=== PATIENT | male | born 1985 | race Caucasian/White ===

== ENCOUNTER 2016-12-11 13:11 | Inpatient (IN) | payer OTHER ==
[2016-12-11 13:33] VITALS: BMI 20.7
--- NOTE | 2016-12-11 14:56 | HP ---
COWS - Scale Resting Pulse: 2= [place] 101-120 Sweatin=Flushed/Facial Moisture Restless Observation: 3= Extraneous Movement Pupil Size: 2= Moderately Dilated Bone or Joint Aches: 2= Severe Diffuse Aches Runny Nose/ Eye Tearin= Runny Nose/Eyes GI Upset > 30mins: 3= Vomiting/Diarrhea Tremor Observation: 2= Slight Tremor Visible Yawning Observation: 2= >3x During Session Anxiety or Irritability: 2=Irritable/Anxious Goose Flesh Skin: 0=Smooth Skin COWS Score: 22 CIWA Score - CIWA Score Nausea/Vomitin Muscle Tremors: 3 Anxiety: 3 Agitation: 3 Paroxysmal Sweats: 2 Orientation: 0-Oriented Tacttile Disturbances: 2-Mild Itch/Numbness/Burn Auditory Disturbances: 2-Mild Harshness/Frighten Visual Disturbances: 2-Mild Sensitivity Headache: 2-Mild CIWA-Ar Total Score: 22 Admission ROS BHS - HPI Chief Complaint: i need help to stop using heroin,alcohol,cocaine and xanax Allergies/Adverse Reactions: Allergies Allergy/AdvReac Type Severity Reaction Status Date / Time No Known Allergies Allergy Verified 12/11/16 13:50 History of Present Illness: this 31 years ld male with heroin,cocaine,xanax,alcohol dependence,withdrawal symptom,last detox 2016 syncope anxiety depression weight loss nicotine dependernce longest period of sobriety for 3 years Exam Limitations: No Limitations - Ebola screening Have you traveled outside of the country in the last 21 days: No Have you had contact with anyone from an Ebola affected area: No Have you been sick,other than usual withdrawal symptoms: No Do you have a fever: No - Review of Systems Constitutional: Chills, Diaphoresis, Malaise, Night Sweats, Weakness, Unintentional Wgt. Loss EENT: reports: Tearing, Nose Congestion Respiratory: reports: No Symptoms reported Cardiac: reports: Palpitations GI: reports: Diarrhea, Nausea, Vomiting, Abdominal cramping : reports: No Symptoms Reported Musculoskeletal: reports: Back Pain, Joint Pain, Muscle Pain, Joint Stiffness Integumentary: reports: Dryness Endocrine: reports: No Symptoms Reported Hematology: reports: No Symptoms Reported Psychiatric: reports: Anxious, Depressed Other Systems: Reviewed and Negative Patient History - Patient Medical History Hx Anemia: No Hx Asthma: No Hx Chronic Obstructive Pulmonary Disease (COPD): No Hx Cancer: No Hx Cardiac Disorders: No Hx Hypertension: No Hx Pacemaker: No HX Cerebrovascular Accident: No Hx Seizures: No Hx Diabetes: No Hx Gastrointestinal Disorders: No Hx Liver Disease: No Hx Genitourinary Disorders: No Hx Sexually Transmitted Disorders: No Hx Renal Disease (ESRD): No Hx Thyroid Disease: No Hx Human Immunodeficiency Virus (HIV): No (2014 last negative) Hx Hepatitis C: No Hx Depression: Yes (anxiety) Hx Suicide Attempt: No Hx Bipolar Disorder: No Hx Schizophrenia: No Other Medical History: no suicidal,no homicidal - Patient Surgical History Past Surgical History: No Hx Neurologic Surgery: No Hx Cataract Extraction: No Hx Cardiac Surgery: No Hx Lung Surgery: No Hx Breast Surgery: No Hx Breast Biopsy: No Hx Abdominal Surgery: No Hx Appendectomy: No Hx Cholecystectomy: No Hx Genitourinary Surgery: No Hx Section: No Hx Orthopedic Surgery: No Anesthesia Reaction: No - PPD History Previous Implant?: Yes Documented Results: Negative w/o proof PPD to be Administered?: Yes - Smoking Cessation Smoking history: Current every day smoker Have you smoked in the past 12 months: Yes Aproximately how many cigarettes per day: 10 Cigars Per Day: 0 Hx Chewing Tobacco Use: No Initiated information on smoking cessation: Yes 'Breaking Loose' booklet given: 12/11/16 - Substance & Tx. History Hx Alcohol Use: Yes Hx Substance Use: Yes Substance Use Type: Alcohol, Cocaine, Heroin, Tranquilizers Hx Substance Use Treatment: Yes (2015) - Substances Abused Alcohol Route: Oral Frequency: Daily Amount used: 1 pint baccardi Age of first use: 12 Date of Last Use: 12/10/16 Heroin Route: Injection Frequency: Daily Amount used: bundle and half Age of first use: 21 Date of Last Use: 12/11/16 Alprazolam (Xanax) Route: Oral Frequency: Daily Amount used: 2 sticks Age of first use: 16 Date of Last Use: 12/11/16 Cocaine Route: Injection Frequency: Daily Amount used: 1 gram Age of first use: 16 Date of Last Use: 12/10/16 Family Disease History - Family Disease History Family History: Denies Admission Physical Exam BHS - Vital Signs Vital Signs: Vital Signs - 24 hr 12/11/16 13:29 Temperature 98.1 F Pulse Rate 103 H Respiratory 20 Rate Blood Pressure 117/70 - Physical General Appearance: Yes: Moderate Distress, Alcohol on Breath, Intoxicated, Tremorous, Irritable, Sweating, Anxious HEENTM: Yes: Normocephalic, Nasal Congestion, Rhinorrhea Respiratory: Yes: Lungs Clear Neck: Yes: Within Normal Limits, Trachea in good position Breast: Yes: Within Normal Limits Cardiology: Yes: Regular Rhythm, Regular Rate, S1, S2, Tachycardia Abdominal: Yes: Normal Bowel Sounds, Non Tender, Flat, Soft Genitourinary: Yes: Within Normal Limits Back: Yes: Muscle Spasm Musculoskeletal: Yes: Back pain, Joint Stiffness, Muscle Pain Extremities: Yes: Tremors Neurological: Yes: Within Normal Limits, business services coordinator II-XII NML intact, Fully Oriented, Alert, Motor Strength 5/5 Integumentary: Yes: Dry Lymphatic: Yes: Within Normal Limits - Diagnostic (1) Opioid dependence with withdrawal Current Visit: Yes Status: Acute (2) Cocaine dependence Current Visit: Yes Status: Acute (3) Alcohol dependence with uncomplicated withdrawal Current Visit: Yes Status: Acute (4) Uncomplicated sedative, hypnotic or anxiolytic withdrawal Current Visit: Yes Status: Acute (5) Weight loss Current Visit: Yes Status: Acute (6) Nicotine dependence Current Visit: Yes Status: Acute (7) Anxiety and depression Current Visit: Yes Status: Acute Cleared for Admission [facility] - Detox or Rehab [facility] Level of Care: Medically Managed Detox Regimen/Protocol: Methadone/Librium [facility] Breath Alcohol Content Breath Alcohol Content: 0 Urine Drug Screen - Results Drug Screen Negative: No Urine Drug Screen Results: AJ-Cocaine, OPI-Opiates, BZO-Benzodiazepines, MTD- Methadone, OXY-Oxycodone
[2016-12-11] MEDS ORDERED: IBUPROFEN 400 MG TABLET (FP) PO PRN (15:06)
[2016-12-11] MEDS ORDERED: chlordiazePOXIDE HCL 25 MG CAPSULE PO PRN (15:06)
[2016-12-11] MEDS ORDERED: MENTHOL/PHENOL 1 EACH UD MM PRN (15:06)
[2016-12-11] MEDS ORDERED: chlordiazePOXIDE HCL 25 MG CAPSULE PO ONE (15:06)
[2016-12-11] MEDS ORDERED: NICOTINE POLACRILEX 2 MG GUM BC PRN (15:06)
[2016-12-11] MEDS ORDERED: MAG HYDROX/AL HYDROX/SIMETH 30 ML UNIT-DOSE CUP PO PRN (15:06)
[2016-12-11] MEDS ORDERED: ACETAMINOPHEN 325 MG TABLET (FP) PO PRN (15:06)
[2016-12-11] MEDS ORDERED: guaiFENesin/D-METHORPHAN HB 10 ML UNIT-DOSE CUPS PO PRN (15:06)
[2016-12-11] MEDS ORDERED: MAGNESIUM HYDROX 2400MG/30ML ORAL SUSPENSION 30 ML CUP PO PRN (15:06)
[2016-12-11] MEDS ORDERED: P-EPHED 60MG/TRIPROLIDI 2.5MG TABLET PO PRN (15:06)
[2016-12-11] MEDS ORDERED: hydrOXYzine PAMOATE 25 MG CAPSULE (FP) PO PRN (15:06)
[2016-12-11] MEDS ORDERED: METHADONE HCL 10 MG TABLET (FOR DETOX USE ONLY) PO ONE ×2 (15:06→23:00)
[2016-12-11] MEDS ORDERED: LOPERAMIDE HCL 2 MG CAPSULE PO PRN (15:06)
[2016-12-11] MEDS ORDERED: MAGNESIUM CITRATE 300 ML BOTTLE PO PRN (15:06)
[2016-12-11] MEDS ORDERED: diphenhydrAMINE HCL 50 MG CAPSULE PO PRN (15:06)
[2016-12-11] MEDS ORDERED: CYCLOBENZAPRINE HCL 10 MG TABLET (FP) PO PRN (15:10)
[2016-12-11] MEDS: NICOTINE 21 MG/24 HOURS TOPICAL PATCH TD SCH (15:54)
[2016-12-11 17:45] LABS: URINE APPEARANCE CLEAR; URINE BILIRUBIN NEGATIVE (NEGATIVE); URINE BLOOD NEGATIVE (NEGATIVE); URINE COLOR YELLOW; URINE GLUCOSE (UA) NEGATIVE (NEGATIVE); URINE KETONE 1+ (NEGATIVE); URINE LEUK ESTERASE NEGATIVE (NEGATIVE); URINE NITRITE NEGATIVE (NEGATIVE); URINE PROTEIN NEGATIVE (NEGATIVE); URINE UROBILINOGEN 2.0 E.U/dl E.U./dl (0.2-1.0)
[2016-12-11] MEDS: chlordiazePOXIDE HCL 25 MG CAPSULE PO SCH ×2 (17:47→22:32)
[2016-12-11] MEDS: THIAMINE HCL 100 MG TABLET (FP) PO SCH (22:32)
[2016-12-11] MEDS: cloNIDine HCL 0.1 MG TABLET PO SCH (22:33)
[2016-12-12] MEDS: chlordiazePOXIDE HCL 25 MG CAPSULE PO SCH ×4 (06:12→22:10)
[2016-12-12] MEDS ORDERED: METHADONE HCL 10 MG TABLET (FOR DETOX USE ONLY) PO SCH (10:00)
[2016-12-12 10:17] LABS: MCH 26.9 pg (25.7-33.7); MCHC 33.4 g/dl (32.0-35.9); MEAN CELL VOLUME 80.5 fl (80-96); MEAN PLT VOLUME 9.2 fl (7.5-11.1); PLATELET COUNT 269 K/MM3 (134-434); RDW 14.5 % (11.9-15.9); WHITE BLOOD COUNT 4.2 K/mm3 (4.0-10.0)
[2016-12-12] MEDS: cloNIDine HCL 0.1 MG TABLET PO SCH ×2 (10:17→22:10)
[2016-12-12] MEDS: NICOTINE 21 MG/24 HOURS TOPICAL PATCH TD SCH (10:17)
[2016-12-12] MEDS: PRENATAL VITAMINS W/ FOLIC ACID TABLET (FP) PO SCH (10:18)
[2016-12-12 10:44] LABS: ALBUMIN 3.3 g/dl (3.4-5.0); ALK PHOS 65 U/L (45-117); ANION GAP 10 (8-16); BILIRUBIN,TOTAL 0.5 mg/dL (0.2-1.0); CALCIUM 9.1 mg/dL (8.5-10.1); CO2 27 mmol/L (21-32); CREATININE 0.5 mg/dL (0.7-1.3); GLUCOSE,RANDOM 106 mg/dL (74-106); SGOT/AST 8 U/L (15-37); SGPT/ALT 18 U/L (12-78); TOT PROT 7.5 g/dl (6.4-8.2)
[2016-12-12 11:24] LABS: HIV 1 & 2 AB NEGATIVE; HIV 1 AGp24 NEGATIVE
--- NOTE | 2016-12-12 16:14 | PN ---
S CIWA - CIWA Score Nausea/Vomitin-Int. Nausea w/Dry Heave Muscle Tremors: 4-Moderate,w/Arms Extend Anxiety: 3 Agitation: 4-Moderately Restless Paroxysmal Sweats: 3 Orientation: 0-Oriented Tacttile Disturbances: 1-Very Mild Itch/Numbness Auditory Disturbances: 0-None Visual Disturbances: 0-None Headache: 2-Mild CIWA-Ar Total Score: 21 BHS COWS - Scale Resting Pulse: 0= [place] 80 or Below Sweatin=Flushed/Facial Moisture Restless Observation: 3= Extraneous Movement Pupil Size: 0= Normal to Room Light Bone or Joint Aches: 2= Severe Diffuse Aches Runny Nose/ Eye Tearin= Runny Nose/Eyes GI Upset > 30mins: 2= Nausea/Diarrhea Tremor Observation of Outstretched Hands: 2= Slight Tremor Visible Yawning Observation: 0= None Anxiety or Irritability: 2=Irritable/Anxious Goose Flesh Skin: 0=Smooth Skin COWS Score: 15 S Progress Note (SOAP) Subjective: Anxious, restless, sweating, nausea, interrupted sleep, tremor Objective: 12/12/16 16:12 Last Vital Signs Temp Pulse Resp BP Pulse Ox 98 F 67 20 105/63 12/12/16 14:15 12/12/16 14:15 12/12/16 14:15 12/12/16 14:15 Laboratory Tests 12/11/16 12/12/16 12/12/16 Unknown 08:00 08:00 WBC 4.2 RBC 4.50 Hgb 12.1 Hct 36.2 MCV 80.5 MCHC 33.4 RDW 14.5 Plt Count 269 MPV 9.2 Sodium Potassium Chloride Carbon Dioxide Anion Gap BUN Creatinine Creat Clearance w eGFR Random Glucose Calcium Total Bilirubin AST ALT Alkaline Phosphatase Total Protein Albumin Urine Color Yellow Urine Appearance Clear Urine pH 5.0 Ur Specific [place] 1.025 Urine Protein Negative Urine Glucose (UA) Negative Urine Ketones 1+ H Urine Blood Negative Urine Nitrite Negative Urine Bilirubin Negative Urine Urobilinogen 2.0 e.u/dl Ur Leukocyte Esterase Negative RPR Titer HIV 1&2 Antibody Screen Negative HIV P24 Antigen Negative 12/12/16 12/12/16 08:00 08:00 WBC RBC Hgb Hct MCV MCHC RDW Plt Count MPV Sodium 138 Potassium 4.3 Chloride 101 Carbon Dioxide 27 Anion Gap 10 BUN 11 Creatinine 0.5 L Creat Clearance w eGFR > 60 Random Glucose 106 Calcium 9.1 Total Bilirubin 0.5 AST 8 L ALT 18 Alkaline Phosphatase 65 Total Protein 7.5 Albumin 3.3 L Urine Color Urine Appearance Urine pH Ur Specific [place] Urine Protein Urine Glucose (UA) Urine Ketones Urine Blood Urine Nitrite Urine Bilirubin Urine Urobilinogen Ur Leukocyte Esterase RPR Titer Nonreactive HIV 1&2 Antibody Screen HIV P24 Antigen Labs noted Assessment: 12/12/16 16:12 Withdrawal symptoms Plan: Continue detox Ambien 10mg PO qhs prn for interrupted sleep
[2016-12-12] MEDS: THIAMINE HCL 100 MG TABLET (FP) PO SCH (22:10)
[2016-12-12] MEDS: ZOLPIDEM TARTRATE 5 MG TABLET PO PRN (22:12)
--- NOTE | 2016-12-12 22:24 | EKG ---
Test Reason : Blood Pressure : / mmHG Vent. Rate : 088 BPM Atrial Rate : 088 BPM P-R Int : 156 ms QRS Dur : 084 ms QT Int : 364 ms P-R-T Axes : 039 054 034 degrees QTc Int : 440 ms NORMAL SINUS RHYTHM MINIMAL VOLTAGE CRITERIA FOR LVH, MAY BE NORMAL VARIANT BORDERLINE ECG NO PREVIOUS ECGS AVAILABLE Confirmed by AGUS GRAHAM MD ([id number]) on 12/12/2016 10:23:55 PM Referred By: Confirmed By:AGUS GRAHAM MD
[2016-12-13] MEDS: chlordiazePOXIDE HCL 25 MG CAPSULE PO SCH ×2 (06:11→10:29)
[2016-12-13] MEDS: cloNIDine HCL 0.1 MG TABLET PO SCH ×2 (10:28→22:31)
[2016-12-13] MEDS: PRENATAL VITAMINS W/ FOLIC ACID TABLET (FP) PO SCH (10:28)
[2016-12-13] MEDS: NICOTINE 21 MG/24 HOURS TOPICAL PATCH TD SCH (10:28)
[2016-12-13] MEDS: METHADONE HCL 5 MG TABLET (FOR DETOX USE ONLY) PO SCH (10:28)
[2016-12-13] MEDS ORDERED: diazePAM 5 MG TABLET PO ONE (10:36)
--- NOTE | 2016-12-13 14:03 | PN ---
[facility] CIWA - CIWA Score Nausea/Vomitin-No Nausea/No Vomiting Muscle Tremors: 4-Moderate,w/Arms Extend Anxiety: 4-Mod. Anxious/Guarded Agitation: 4-Moderately Restless Paroxysmal Sweats: 3 Orientation: 0-Oriented Tacttile Disturbances: 0-None Auditory Disturbances: 0-None Visual Disturbances: 0-None Headache: 0-None Present CIWA-Ar Total Score: 15 BHS COWS - Scale Resting Pulse: 0= [place] 80 or Below Sweatin=Flushed/Facial Moisture Restless Observation: 1= Difficult to Sit Still Pupil Size: 0= Normal to Room Light Bone or Joint Aches: 2= Severe Diffuse Aches Runny Nose/ Eye Tearin= Runny Nose/Eyes GI Upset > 30mins: 2= Nausea/Diarrhea Tremor Observation of Outstretched Hands: 2= Slight Tremor Visible Yawning Observation: 1= 1-2x During Session Anxiety or Irritability: 2=Irritable/Anxious Goose Flesh Skin: 0=Smooth Skin COWS Score: 14 [facility] Progress Note (SOAP) Subjective: Sweating,interrupted sleep,restless,tremors,body aches,anxiety Objective: 12/13/16 14:02 Vital Signs - 8 hr 12/13/16 12/13/16 12/13/16 06:49 09:35 13:35 Temperature 96.9 F L 96.4 F L 96.7 F L Pulse Rate 62 69 76 Respiratory 16 18 18 Rate Blood Pressure 101/72 103/65 100/63 Laboratory Last Values WBC 4.2 K/mm3 (4.0-10.0) 12/12/16 08:00 RBC 4.50 M/mm3 (4.00-5.60) 12/12/16 08:00 Hgb 12.1 GM/dL (11.7-16.9) 12/12/16 08:00 Hct 36.2 % (35.4-49) 12/12/16 08:00 MCV 80.5 fl (80-96) 12/12/16 08:00 MCHC 33.4 g/dl (32.0-35.9) 12/12/16 08:00 RDW 14.5 % (11.9-15.9) 12/12/16 08:00 Plt Count 269 K/MM3 (134-434) 12/12/16 08:00 MPV 9.2 fl (7.5-11.1) 12/12/16 08:00 Sodium 138 mmol/L (136-145) 12/12/16 08:00 Potassium 4.3 mmol/L (3.5-5.1) 12/12/16 08:00 Chloride 101 mmol/L (98-107) 12/12/16 08:00 Carbon Dioxide 27 mmol/L (21-32) 12/12/16 08:00 Anion Gap 10 (8-16) 12/12/16 08:00 BUN 11 mg/dL (7-18) 12/12/16 08:00 Creatinine 0.5 mg/dL (0.7-1.3) L 12/12/16 08:00 Creat Clearance w eGFR > 60 (>60) 12/12/16 08:00 Random Glucose 106 mg/dL (74-106) 12/12/16 08:00 Calcium 9.1 mg/dL (8.5-10.1) 12/12/16 08:00 Total Bilirubin 0.5 mg/dL (0.2-1.0) 12/12/16 08:00 AST 8 U/L (15-37) L 12/12/16 08:00 ALT 18 U/L (12-78) 12/12/16 08:00 Alkaline Phosphatase 65 U/L (45-117) 12/12/16 08:00 Total Protein 7.5 g/dl (6.4-8.2) 12/12/16 08:00 Albumin 3.3 g/dl (3.4-5.0) L 12/12/16 08:00 Urine Color Yellow 12/11/16 Unknown Urine Appearance Clear 12/11/16 Unknown Urine pH 5.0 (5.0-8.0) 12/11/16 Unknown Ur Specific [place] 1.025 (1.001-1.035) 12/11/16 Unknown Urine Protein Negative (NEGATIVE) 12/11/16 Unknown Urine Glucose (UA) Negative (NEGATIVE) 12/11/16 Unknown Urine Ketones 1+ (NEGATIVE) H 12/11/16 Unknown Urine Blood Negative (NEGATIVE) 12/11/16 Unknown Urine Nitrite Negative (NEGATIVE) 12/11/16 Unknown Urine Bilirubin Negative (NEGATIVE) 12/11/16 Unknown Urine Urobilinogen 2.0 e.u/dl E.U./dl (0.2-1.0) 12/11/16 Unknown Ur Leukocyte Esterase Negative (NEGATIVE) 12/11/16 Unknown RPR Titer Nonreactive (NONREACTIVE) 12/12/16 08:00 HIV 1&2 Antibody Screen Negative 12/12/16 08:00 HIV P24 Antigen Negative 12/12/16 08:00 labs noted Assessment: 12/13/16 14:02 Withdrawal sx. Plan: continue detox
[2016-12-13] MEDS: diazePAM 5 MG TABLET PO SCH ×2 (14:24→22:30)
--- NOTE | 2016-12-13 14:41 | CONSULT ---
[facility] Psychiatric Consult - Data Date of interview: 12/13/16 Admission source: [facility] Identifying data: First admission to [facility] for this 31 y/o male seeking detox treatment on for alcohol,cocaine,heroin and benzodiazepine (xanax) dependence.Patient is ,a father of four,homeless ,unemployed and supported on food stamps. Substance Abuse History: - Smoking Cessation. Smoking history: Current every day smoker. Have you smoked in the past 12 months: Yes. Aproximately how many cigarettes per day: 10. Cigars Per Day: 0. Hx Chewing Tobacco Use: No. Initiated information on smoking cessation: Yes. 'Breaking Loose' booklet given : 12/11/16. - Substance & Tx. History. Hx Alcohol Use: Yes. Hx Substance Use : Yes. Substance Use Type: Alcohol, Cocaine, Heroin, Tranquilizers. Hx Substance Use Treatment: Yes (2015). - Substances Abused. Alcohol. Route: Oral. Frequency: Daily. Amount used: 1 pint baccardi. Age of first use: 12. Date of Last Use: 12/10/16. Heroin. Route: Injection. Frequency: Daily. Amount used: bundle and half. Age of first use: 21. Date of Last Use: . Alprazolam (Xanax). Route: Oral. Frequency: Daily. Amount used: 2 sticks. Age of first use: 16. Date of Last Use: 12/11/16. Cocaine. Route : Injection. Frequency: Daily. Amount used: 1 gram. Age of first use: 16. Date of Last Use: 12/10/16. Confirmed by the patient in this interview. Medical History: Patient endorses good general health. Psychiatric History: Patient denies history of psychiatric hospitalizations.Diagnosed with " Bipolar Disorder and Schizophrenia." Mr Camarillo recalls his medications as olanzapine,zolpidem and clonazepam.He,vaguely,states that he goes to a program in [facility] but he cannot recall the name of the facility.Patient admits to a history of suicide attempts (overdoses with medications,binge on substances).No recollection of date of the last medication intake. Physical/Sexual Abuse/Trauma History: Patient denies. Additional Comment: Urine Drug Screen Results: AJ-Cocaine, OPI-Opiates, BZO- Benzodiazepines, MTD-Methadone, OXY-Oxycodone.Noted. Mental Status Exam - Mental Status Exam Alert and Oriented to: Time, Place, Person Cognitive Function: Good Patient Appearance: Unkempt, Disheveled Mood: Nervous, Withdrawn Affect: Mood Congruent Patient Behavior: Sedated (mildly), Fatigued Speech Pattern: Clear Voice Loudness: Normal Thought Process: Goal Oriented Thought Disorder: Not Present Hallucinations: Denies Suicidal Ideation: Denies Homicidal Ideation: Denies Insight/Judgement: Poor Sleep: Poorly, Difficulty falling asleep Appetite: Good Muscle strength/Tone: Normal Gait/Station: Normal Psychiatric Findings - Problem List ([place] 1, 2,3) (1) Alcohol dependence with uncomplicated withdrawal Current Visit: Yes Status: Acute (2) Cocaine dependence Current Visit: Yes Status: Acute (3) Opioid dependence with withdrawal Current Visit: Yes Status: Acute (4) Uncomplicated sedative, hypnotic or anxiolytic withdrawal Current Visit: Yes Status: Acute (5) Nicotine dependence Current Visit: Yes Status: Acute (6) Substance induced mood disorder Current Visit: Yes Status: Acute (7) Insomnia Current Visit: Yes Status: Acute - Initial Treatment Plan Initial Treatment Plan: Psychoeducation.Detoxification.Medications : zyprexa 5 mg po hs + zolpidem 10 mg po hs prn.Side effects/benefits discussed with the patient.Made aware of the risk of metabolic syndrome.Patient agrees with this plan of care.Observation.
[2016-12-13] MEDS ORDERED: ZOLPIDEM TARTRATE 10 MG TABLET (PARK CARE ONLY) PO PRN (15:01)
[2016-12-13] MEDS ORDERED: chlordiazePOXIDE 5 MG CAPSULE PO SCH (17:00)
[2016-12-13] MEDS ORDERED: traZODone HCL 50 MG TABLET (FP) PO SCH (22:00)
[2016-12-13] MEDS: ZOLPIDEM TARTRATE 5 MG TABLET PO PRN (22:30)
[2016-12-13] MEDS: OLANZapine 5 MG TABLET PO SCH (22:30)
[2016-12-13] MEDS: THIAMINE HCL 100 MG TABLET (FP) PO SCH (22:30)
[2016-12-14] MEDS: diazePAM 5 MG TABLET PO SCH ×3 (05:12→22:27)
[2016-12-14] MEDS: cloNIDine HCL 0.1 MG TABLET PO SCH ×2 (10:20→22:27)
[2016-12-14] MEDS: METHADONE HCL 5 MG TABLET (FOR DETOX USE ONLY) PO SCH (10:20)
[2016-12-14] MEDS: NICOTINE 21 MG/24 HOURS TOPICAL PATCH TD SCH (10:20)
[2016-12-14] MEDS: PRENATAL VITAMINS W/ FOLIC ACID TABLET (FP) PO SCH (10:20)
--- NOTE | 2016-12-14 10:41 | PN ---
BHS Progress Note (SOAP) Subjective: ANXIETY,SWEATS,TREMORS,FATIGUE. Objective: 12/14/16 10:40 Vital Signs Temperature 96 F L 12/14/16 10:08 Pulse Rate 84 12/14/16 10:08 Respiratory Rate 20 12/14/16 10:08 Blood Pressure 117/69 12/14/16 10:08 O2 Sat by Pulse Oximetry (%) Assessment: 12/14/16 10:40 WITHDRAWAL SX Plan: CONTINUE DETOX INCREASE PO FLUIDS.
[2016-12-14] MEDS ORDERED: chlordiazePOXIDE HCL 10 MG CAPSULE PO SCH (17:00)
[2016-12-14] MEDS: THIAMINE HCL 100 MG TABLET (FP) PO SCH (22:27)
[2016-12-14] MEDS: ZOLPIDEM TARTRATE 5 MG TABLET PO PRN (22:27)
[2016-12-14] MEDS: OLANZapine 5 MG TABLET PO SCH (22:27)
[2016-12-15 09:53] VITALS: BP 113/70; PULSE 68; TEMP 96.9
[2016-12-15] MEDS ORDERED: METHADONE HCL 10 MG TABLET (FOR DETOX USE ONLY) PO SCH (10:00)
[2016-12-15] MEDS ORDERED: diazePAM 5 MG TABLET PO SCH (10:00)
[2016-12-15] MEDS: PRENATAL VITAMINS W/ FOLIC ACID TABLET (FP) PO SCH (10:20)
[2016-12-15] MEDS: cloNIDine HCL 0.1 MG TABLET PO SCH (10:21)
[2016-12-15] MEDS: NICOTINE 21 MG/24 HOURS TOPICAL PATCH TD SCH (10:50)
--- NOTE | 2016-12-15 11:56 | DS ---
[facility] Detox Discharge Summary Admission Date: 12/11/16 Discharge Date: 12/15/16 - History Present History: Alcohol Dependence, Cocaine Dependence, Opioid Dependence, Sedative Dependence Additional Comments: DETOX COMPLETED. ALERT O X 3. NAD. Pertinent Past History: WEIGHT LOSS - Physical Exam Results Vital Signs: Vital Signs Temperature 96.9 F L 12/15/16 09:53 Pulse Rate 68 12/15/16 09:53 Respiratory Rate 18 12/15/16 09:53 Blood Pressure 113/70 12/15/16 09:53 O2 Sat by Pulse Oximetry (%) Pertinent Admission Physical Exam Findings: WITHDRAWAL SX - Treatment Hospital Course: Detox Protocol Followed, Detoxed Safely, Responded well, Discharged Condition Good - Medication Discharge Medications: Ambulatory Orders Olanzapine [Zyprexa -] 5 mg PO DAILY #30 tablet 12/13/16 - Diagnosis (1) Alcohol dependence with uncomplicated withdrawal Status: Acute (2) Nicotine dependence Status: Acute Qualifiers: Nicotine product type: cigarettes Substance use status: in withdrawal Qualified Code(s): F17.213 - Nicotine dependence, cigarettes, with withdrawal (3) Opioid dependence with withdrawal Status: Acute (4) Uncomplicated sedative, hypnotic or anxiolytic withdrawal Status: Acute (5) Weight loss Status: Chronic - AMA Did Patient Leave Against Medical Advice: No
[2016-12-16] MEDS ORDERED: METHADONE HCL 5 MG TABLET (FOR DETOX USE ONLY) PO SCH (06:00)
[2016-12-16] MEDS ORDERED: diazePAM 5 MG TABLET PO SCH (10:00)
== END 2016-12-15 10:52 | disposition home or self-care (01) | DRG 773 ==
LOC: YASAS 13:11 → Y3N 14:18
PROVIDERS: ADMIT Internal Medicine; ATTEND Internal Medicine
PROC: HZ2ZZZZ Detoxification Services for Substance Abuse Treatment (ICD-10-PCS; principal; 2016-12-15)
DX: F11.23 Opioid dependence with withdrawal (principal); F13.230 Sedative, hypnotic or anxiolytic dependence with withdrawal, uncomplicated; F10.230 Alcohol dependence with withdrawal, uncomplicated; F14.20 Cocaine dependence, uncomplicated; F17.213 Nicotine dependence, cigarettes, with withdrawal; F19.24 Other psychoactive substance dependence with psychoactive substance-induced mood disorder; F41.8 Other specified anxiety disorders; G47.00 Insomnia, unspecified; R63.4 Abnormal weight loss; Z68.20 Body mass index [BMI] 20.0-20.9, adult; Z59.0 Homelessness
CPT/HCPCS: 36415; 80053; 81003; 85027; 86593; 87389; 87522; 93005; 93010

== ENCOUNTER 2017-01-12 14:09 | Inpatient (IN) | payer OTHER ==
[2017-01-12 16:07] VITALS: BMI 20.9
--- NOTE | 2017-01-12 16:46 | HP ---
COWS - Scale Resting Pulse: 2= [place] 101-120 Sweatin= Chills/Flushing Restless Observation: 3= Extraneous Movement Pupil Size: 0= Normal to Room Light Bone or Joint Aches: 1= Mild Discomfort Runny Nose/ Eye Tearin= Nasal Congestion GI Upset > 30mins: 3= Vomiting/Diarrhea Tremor Observation: 1= Tremor [place], Not Seen Yawning Observation: 0= None Anxiety or Irritability: 2=Irritable/Anxious Goose Flesh Skin: 0=Smooth Skin COWS Score: 14 CIWA Score - CIWA Score Nausea/Vomitin Muscle Tremors: 4-Moderate,w/Arms Extend Anxiety: 4-Mod. Anxious/Guarded Agitation: 4-Moderately Restless Paroxysmal Sweats: 1-Minimal Palms Moist Orientation: 3-Disoriented Date>2 days Tacttile Disturbances: 0-None Auditory Disturbances: 0-None Visual Disturbances: 0-None Headache: 0-None Present CIWA-Ar Total Score: 18 Admission ROS S - HPI Chief Complaint: withdrawal sx Allergies/Adverse Reactions: Allergies Allergy/AdvReac Type Severity Reaction Status Date / Time shellfish derived Allergy Severe Swelling Verified 01/12/17 16:53 No Known Drug Allergies Allergy Verified 01/12/17 17:58 NKDA Allergy Uncoded 01/12/17 16:53 History of Present Illness: 31 years old male with long history of opiate klonopin, nicotine dependence, denies medical issue has anxiety is admitted to detox Exam Limitations: No Limitations - Ebola screening Have you traveled outside of the country in the last 21 days: No (N) Have you had contact with anyone from an Ebola affected area: No Have you been sick,other than usual withdrawal symptoms: No Do you have a fever: No - Review of Systems Constitutional: Chills, Loss of Appetite, Changes in sleep, Unintentional Wgt. Loss, Unexplained wgt Loss EENT: reports: No Symptoms Reported Respiratory: reports: No Symptoms reported Cardiac: reports: No Symptoms Reported GI: reports: Diarrhea, Nausea, Poor Appetite, Poor Fluid Intake, Vomiting, Abdominal cramping : reports: No Symptoms Reported Musculoskeletal: reports: Back Pain, Joint Pain, Muscle Pain, Neck Pain Integumentary: reports: Change in Color (both inner elbows) Neuro: reports: Tremors Endocrine: reports: No Symptoms Reported Hematology: reports: No Symptoms Reported Psychiatric: reports: Judgement Intact, Anxious Other Systems: Reviewed and Negative Patient History - Patient Medical History Hx Anemia: No Hx Asthma: No Hx Chronic Obstructive Pulmonary Disease (COPD): No Hx Cancer: No Hx Cardiac Disorders: No Hx Congestive Heart Failure: No Hx Hypertension: No Hx Hypercholesterolemia: No Hx Pacemaker: No HX Cerebrovascular Accident: No Hx Seizures: No Hx Dementia: No Hx Diabetes: No Hx Gastrointestinal Disorders: No Hx Liver Disease: No Hx Genitourinary Disorders: No Hx Sexually Transmitted Disorders: No Hx Renal Disease (ESRD): No Hx Thyroid Disease: No Hx Human Immunodeficiency Virus (HIV): No (2014 last negative) Hx Hepatitis C: No Hx Depression: Yes (anxiety) Hx Suicide Attempt: No Hx Bipolar Disorder: No Hx Schizophrenia: No - Patient Surgical History Past Surgical History: No Hx Neurologic Surgery: No Hx Cataract Extraction: No Hx Cardiac Surgery: No Hx Lung Surgery: No Hx Breast Surgery: No Hx Breast Biopsy: No Hx Abdominal Surgery: No Hx Appendectomy: No Hx Cholecystectomy: No Hx Genitourinary Surgery: No Hx Orthopedic Surgery: No - PPD History Previous Implant?: Yes Documented Results: Negative w/proof Implanted On Prior R Admission?: Yes Date: 12/13/16 PPD to be Administered?: No - Smoking Cessation Smoking history: Current every day smoker Have you smoked in the past 12 months: Yes Aproximately how many cigarettes per day: 10 Cigars Per Day: 0 Hx Chewing Tobacco Use: No Initiated information on smoking cessation: Yes 'Breaking Loose' booklet given: 01/12/17 - Substance & Tx. History Hx Alcohol Use: No Hx Substance Use: Yes Substance Use Type: Cocaine, Opiates, Tranquilizers Hx Substance Use Treatment: Yes - Substances Abused Heroin Route: Injection Frequency: Daily Amount used: 30 bags Age of first use: 23 Date of Last Use: 01/12/17 Cocaine Route: Injection Frequency: Daily Amount used: $100 Age of first use: 12 Date of Last Use: 01/12/17 Klonopin Route: Oral Frequency: 3-6 times per week Amount used: 4-6 mg. Age of first use: 29 Date of Last Use: 12/28/16 Family Disease History - Family Disease History Family Disease History: Diabetes: Father, [place]: Father Admission Physical Exam BHS - Vital Signs Vital Signs: Vital Signs - 24 hr 01/12/17 16:02 Temperature 98 F Pulse Rate 119 H Respiratory 20 Rate Blood Pressure 124/74 - Physical General Appearance: Yes: Appropriately Dressed, Moderate Distress, Thin, Tremorous, Irritable, Sweating, Anxious HEENTM: Yes: Hearing grossly Normal, Normal ENT Inspection, Normocephalic, Normal Voice Respiratory: Yes: Chest Non-Tender, Lungs Clear, Normal Breath Sounds, No Respiratory Distress, No Accessory Muscle Use Neck: Yes: Supple, Trachea in good position Breast: Yes: Breasts Symetrical Cardiology: Yes: Regular Rhythm, S1, S2, Tachycardia (cocaine few minutes prior to [facility]) Abdominal: Yes: Non Tender, Soft, Increased Bowel Sounds Genitourinary: Yes: Within Normal Limits Back: Yes: Normal Inspection Musculoskeletal: Yes: full range of Motion, Gait Steady, Back pain, Muscle Pain Extremities: Yes: Normal Range of Motion, Non-Tender, Tremors Neurological: Yes: Alert, Motor Strength 5/5, Normal Response, Depressed Affect Integumentary: Yes: Warm, [place] Lymphatic: Yes: Within Normal Limits - Diagnostic (1) Anxiety and depression Current Visit: Yes Status: Suspected (2) Nicotine dependence Current Visit: Yes Status: Acute Qualifiers: Nicotine product type: cigarettes Substance use status: in withdrawal Qualified Code(s): F17.213 - Nicotine dependence, cigarettes, with withdrawal (3) Opioid dependence with withdrawal Current Visit: Yes Status: Acute (4) Weight loss Current Visit: Yes Status: Acute (5) Sedative, hypnotic or anxiolytic dependence with withdrawal, uncomplicated Current Visit: Yes Status: Acute (6) Cocaine dependence, uncomplicated Current Visit: Yes Status: Chronic Cleared for Admission [facility] - Detox or Rehab [facility] Level of Care: Medically Managed Detox Regimen/Protocol: Methadone/Valium [facility] Breath Alcohol Content Breath Alcohol Content: 0 Urine Drug Screen - Results Drug Screen Negative: No Urine Drug Screen Results: AJ-Cocaine, OPI-Opiates, BZO-Benzodiazepines, MTD- Methadone, OXY-Oxycodone
[2017-01-12] MEDS ORDERED: IBUPROFEN 400 MG TABLET (FP) PO PRN (16:50)
[2017-01-12] MEDS ORDERED: MENTHOL/PHENOL 1 EACH UD MM PRN (16:50)
[2017-01-12] MEDS ORDERED: MAG HYDROX/AL HYDROX/SIMETH 30 ML UNIT-DOSE CUP PO PRN (16:50)
[2017-01-12] MEDS ORDERED: LOPERAMIDE HCL 2 MG CAPSULE PO PRN (16:50)
[2017-01-12] MEDS ORDERED: P-EPHED 60MG/TRIPROLIDI 2.5MG TABLET PO PRN (16:50)
[2017-01-12] MEDS ORDERED: NICOTINE POLACRILEX 2 MG GUM BC PRN (16:50)
[2017-01-12] MEDS ORDERED: guaiFENesin/D-METHORPHAN HB 10 ML UNIT-DOSE CUPS PO PRN (16:50)
[2017-01-12] MEDS ORDERED: MAGNESIUM HYDROX 2400MG/30ML ORAL SUSPENSION 30 ML CUP PO PRN (16:50)
[2017-01-12] MEDS ORDERED: diphenhydrAMINE HCL 50 MG CAPSULE PO PRN (16:50)
[2017-01-12] MEDS ORDERED: MAGNESIUM CITRATE 300 ML BOTTLE PO PRN (16:50)
[2017-01-12] MEDS ORDERED: ACETAMINOPHEN 325 MG TABLET (FP) PO PRN (16:50)
[2017-01-12] MEDS ORDERED: diazePAM 5 MG TABLET PO ONE (18:30)
[2017-01-12] MEDS ORDERED: METHADONE HCL 10 MG TABLET (FOR DETOX USE ONLY) PO ONE ×2 (18:30→23:00)
[2017-01-12] MEDS: THIAMINE HCL 100 MG TABLET (FP) PO SCH (22:34)
[2017-01-12] MEDS: diazePAM 5 MG TABLET PO SCH (22:34)
[2017-01-12 23:17] LABS: URINE APPEARANCE CLEAR; URINE BILIRUBIN NEGATIVE (NEGATIVE); URINE BLOOD NEGATIVE (NEGATIVE); URINE COLOR AMBER; URINE GLUCOSE (UA) NEGATIVE (NEGATIVE); URINE KETONE NEGATIVE (NEGATIVE); URINE LEUK ESTERASE NEGATIVE (NEGATIVE); URINE NITRITE NEGATIVE (NEGATIVE); URINE PROTEIN NEGATIVE (NEGATIVE); URINE UROBILINOGEN NEGATIVE E.U./dl (0.2-1.0)
[2017-01-13] MEDS: diazePAM 5 MG TABLET PO SCH ×3 (05:33→22:07)
--- NOTE | 2017-01-13 09:40 | PN ---
[facility] CIWA - CIWA Score Nausea/Vomitin-No Nausea/No Vomiting Muscle Tremors: 4-Moderate,w/Arms Extend Anxiety: 3 Agitation: 3 Paroxysmal Sweats: 3 Orientation: 0-Oriented Tacttile Disturbances: 0-None Auditory Disturbances: 0-None Visual Disturbances: 0-None Headache: 1-Very Mild CIWA-Ar Total Score: 14 S COWS - Scale Resting Pulse: 1= [place] 81-100 Sweatin=Flushed/Facial Moisture Restless Observation: 1= Difficult to Sit Still Pupil Size: 0= Normal to Room Light Bone or Joint Aches: 2= Severe Diffuse Aches Runny Nose/ Eye Tearin= Runny Nose/Eyes GI Upset > 30mins: 1= Stomach Cramp Tremor Observation of Outstretched Hands: 2= Slight Tremor Visible Yawning Observation: 2= >3x During Session Anxiety or Irritability: 2=Irritable/Anxious Goose Flesh Skin: 3=Piloerection COWS Score: 18 S Progress Note (SOAP) Subjective: irritable agitation anxiety sweats interrupted sleep tired Objective: 01/13/17 09:46 Vital Signs Temperature 97.9 F 01/13/17 06:25 Pulse Rate 84 01/13/17 06:25 Respiratory Rate 16 01/13/17 06:25 Blood Pressure 93/51 01/13/17 06:25 O2 Sat by Pulse Oximetry (%) Laboratory Tests 01/12/17 23:00 Urine Color [place] Urine Appearance Clear Urine pH 5.0 Ur Specific [place] 1.024 Urine Protein Negative Urine Glucose (UA) Negative Urine Ketones Negative Urine Blood Negative Urine Nitrite Negative Urine Bilirubin Negative Urine Urobilinogen Negative Ur Leukocyte Esterase Negative labs pending awake/alert ambulating no acute distress Assessment: 01/13/17 09:47 withdrawal sx Plan: continue detox increase fluids labs pending
[2017-01-13 09:55] LABS: MCH 26.9 pg (25.7-33.7); MCHC 33.1 g/dl (32.0-35.9); MEAN CELL VOLUME 81.1 fl (80-96); MEAN PLT VOLUME 9.2 fl (7.5-11.1); PLATELET COUNT 223 K/MM3 (134-434); RDW 16.1 % (11.9-15.9); WHITE BLOOD COUNT 5.8 K/mm3 (4.0-10.0)
[2017-01-13] MEDS ORDERED: METHADONE HCL 10 MG TABLET (FOR DETOX USE ONLY) PO SCH (10:00)
[2017-01-13] MEDS: PRENATAL VITAMINS W/ FOLIC ACID TABLET (FP) PO SCH (10:15)
[2017-01-13] MEDS: diazePAM 5 MG TABLET PO PRN ×2 (10:16→17:18)
[2017-01-13] MEDS: NICOTINE 21 MG/24 HOURS TOPICAL PATCH TD SCH (10:16)
[2017-01-13 10:17] LABS: ALBUMIN 3.2 g/dl (3.4-5.0); ALK PHOS 140 U/L (45-117); ANION GAP 9 (8-16); BILIRUBIN,TOTAL 0.8 mg/dL (0.2-1.0); CALCIUM 8.6 mg/dL (8.5-10.1); CO2 27 mmol/L (21-32); CREATININE 0.6 mg/dL (0.7-1.3); GLUCOSE,RANDOM 89 mg/dL (74-106); SGOT/AST 27 U/L (15-37); SGPT/ALT 67 U/L (12-78); TOT PROT 7.4 g/dl (6.4-8.2)
--- NOTE | 2017-01-13 15:04 | CONSULT ---
[facility] Psychiatric Consult - Data Date of interview: 01/13/17 Admission source: [facility] Identifying data: Readmission to [facility] for this 31 y/o male seeking detox treatment on for cocaine,heroin and benzodiazepine ( klonopin) dependence.Patient is ,a father of four,homeless,unemployed and supported on food stamps. Substance Abuse History: - Smoking Cessation. Smoking history: Current every day smoker. Have you smoked in the past 12 months: Yes. Aproximately how many cigarettes per day: 10. Cigars Per Day: 0. Hx Chewing Tobacco Use: No. Initiated information on smoking cessation: Yes. 'Breaking Loose' booklet given : 01/12/17. - Substance & Tx. History. Hx Alcohol Use: No. Hx Substance Use: Yes. Substance Use Type: Cocaine, Opiates, Tranquilizers. Hx Substance Use Treatment: Yes. - Substances Abused. Heroin. Route: Injection. Frequency : Daily. Amount used: 30 bags. Age of first use: 23. Date of Last Use: . Cocaine. Route: Injection. Frequency: Daily. Amount used: $100. Age of first use: 12. Date of Last Use: 01/12/17. Klonopin. Route: Oral. Frequency: 3-6 times per week. Amount used: 4-6 mg. Age of first use: 29. Date of Last Use: 12/28/16. Confirmed by patient. Medical History: Patient reports a history of hepatitis C.Noted drainage bag ( patient indicates a recent surgical intervention on his gallbladder at [facility] 12/20/16). Psychiatric History: No history of psychiatric hospitalizations.Diagnosed with " Bipolar Disorder and Schizophrenia." Mr Camarillo states that he is on atarax, klonopin and ambien.No current psychiatric OPD care providers.Patient admits to a history of suicide attempts (overdoses with medications). Physical/Sexual Abuse/Trauma History: Patient denies. Additional Comment: Urine Drug Screen Results: AJ-Cocaine, OPI-Opiates, BZO- Benzodiazepines, MTD-Methadone, OXY-Oxycodone.Noted. Mental Status Exam - Mental Status Exam Alert and Oriented to: Time, Place, Person Cognitive Function: Good Patient Appearance: Well Groomed (carrying a drainage bag from a recent surgical intervention on his gallbladder) Mood: Hopeful, Euthymic Affect: Appropriate, Normal Range Patient Behavior: Fatigued, Appropriate, Cooperative Speech Pattern: Clear, Appropriate Voice Loudness: Normal Thought Process: Goal Oriented Thought Disorder: Not Present Hallucinations: Denies Suicidal Ideation: Denies Homicidal Ideation: Denies Insight/Judgement: Poor Sleep: Poorly, Difficulty falling asleep (asking for ambien) Appetite: Fair Muscle strength/Tone: Normal Gait/Station: Normal Psychiatric Findings - Problem List ([place] 1, 2,3) (1) Opioid dependence with withdrawal Current Visit: Yes Status: Acute (2) Sedative, hypnotic or anxiolytic dependence with withdrawal, uncomplicated Current Visit: Yes Status: Acute (3) Cocaine dependence, uncomplicated Current Visit: Yes Status: Acute (4) Nicotine dependence Current Visit: Yes Status: Acute Qualifiers: Nicotine product type: cigarettes Substance use status: in withdrawal Qualified Code(s): F17.213 - Nicotine dependence, cigarettes, with withdrawal (5) Substance induced mood disorder Current Visit: Yes Status: Acute (6) Weight loss Current Visit: Yes Status: Chronic (7) Insomnia Current Visit: Yes Status: Acute - Initial Treatment Plan Initial Treatment Plan: Psychoeducation.Detoxification.Ambien 10 mg po hs prn ( patient's request).Patient is made aware of mayuri of parasomnias.Observation.
--- NOTE | 2017-01-13 16:28 | EKG ---
Test Reason : Blood Pressure : / mmHG Vent. Rate : 107 BPM Atrial Rate : 107 BPM P-R Int : 152 ms QRS Dur : 082 ms QT Int : 318 ms P-R-T Axes : 057 032 014 degrees QTc Int : 424 ms SINUS TACHYCARDIA NONSPECIFIC T WAVE ABNORMALITY ABNORMAL ECG WHEN COMPARED WITH ECG OF 11-DEC-2016 16:36, NON-SPECIFIC CHANGE IN ST SEGMENT IN LATERAL LEADS Confirmed by KARO IBARRA MD ([id number]) on 01/13/2017 4:28:15 PM Referred By: Rob Lopes Confirmed By:KARO IBARRA MD
[2017-01-13] MEDS: THIAMINE HCL 100 MG TABLET (FP) PO SCH (22:07)
[2017-01-13] MEDS: ZOLPIDEM TARTRATE 10 MG TABLET (PARK CARE ONLY) PO PRN (22:07)
[2017-01-14] MEDS: diazePAM 5 MG TABLET PO PRN ×3 (08:44→19:55)
[2017-01-14] MEDS: PRENATAL VITAMINS W/ FOLIC ACID TABLET (FP) PO SCH (09:59)
[2017-01-14] MEDS: NICOTINE 21 MG/24 HOURS TOPICAL PATCH TD SCH (09:59)
[2017-01-14] MEDS: METHADONE HCL 5 MG TABLET (FOR DETOX USE ONLY) PO SCH (10:00)
[2017-01-14] MEDS: diazePAM 5 MG TABLET PO SCH ×2 (10:00→22:12)
--- NOTE | 2017-01-14 11:44 | PN ---
S Progress Note Note: pt has a cholecystectomy drainage bag actively draining dark brownish fluid into bag. pt states he has had this procedure done 4weeks ago. the drainage tubing intact with a suture in place to keep tube intact. site is clean no s/s of infection note. site cleansed with N/S and gauze dressing applied. pt can have dressing changed daily. pt will be d/c on tuesday and will go straight to [facility] for follow up on this procedure. pt was advised that if he feels any pain, high temp to advised nursing staff.
--- NOTE | 2017-01-14 11:46 | PN ---
[facility] CIWA - CIWA Score Nausea/Vomitin-No Nausea/No Vomiting Muscle Tremors: 4-Moderate,w/Arms Extend Anxiety: 3 Agitation: 4-Moderately Restless Paroxysmal Sweats: 2 Orientation: 0-Oriented Tacttile Disturbances: 0-None Auditory Disturbances: 0-None Visual Disturbances: 0-None Headache: 0-None Present CIWA-Ar Total Score: 13 [facility] COWS - Scale Resting Pulse: 1= [place] 81-100 Sweatin=Flushed/Facial Moisture Restless Observation: 1= Difficult to Sit Still Pupil Size: 0= Normal to Room Light Bone or Joint Aches: 2= Severe Diffuse Aches Runny Nose/ Eye Tearin= None GI Upset > 30mins: 0= None Tremor Observation of Outstretched Hands: 2= Slight Tremor Visible Yawning Observation: 1= 1-2x During Session Anxiety or Irritability: 2=Irritable/Anxious Goose Flesh Skin: 3=Piloerection COWS Score: 14 [facility] Progress Note (SOAP) Subjective: irritable agitation anxiety sweats drain bag with tubing attached to abdomen; drainage is from my gallbladder Objective: 01/14/17 11:45 Vital Signs Temperature 97.9 F 01/14/17 09:57 Pulse Rate 89 01/14/17 09:57 Respiratory Rate 16 01/14/17 09:57 Blood Pressure 109/67 01/14/17 09:57 O2 Sat by Pulse Oximetry (%) Laboratory Tests 01/12/17 01/13/17 01/13/17 23:00 07:00 07:00 WBC 5.8 D RBC 4.26 Hgb 11.5 L Hct 34.6 L MCV 81.1 MCHC 33.1 RDW 16.1 H D Plt Count 223 MPV 9.2 Sodium 139 Potassium 4.0 Chloride 103 Carbon Dioxide 27 Anion Gap 9 BUN 7 D Creatinine 0.6 L Creat Clearance w eGFR > 60 Random Glucose 89 Calcium 8.6 Total Bilirubin 0.8 D AST 27 D ALT 67 D Alkaline Phosphatase 140 H D Total Protein 7.4 Albumin 3.2 L Urine Color Arleth Urine Appearance Clear Urine pH 5.0 Ur Specific [place] 1.024 Urine Protein Negative Urine Glucose (UA) Negative Urine Ketones Negative Urine Blood Negative Urine Nitrite Negative Urine Bilirubin Negative Urine Urobilinogen Negative Ur Leukocyte Esterase Negative RPR Titer 01/13/17 07:00 WBC RBC Hgb Hct MCV MCHC RDW Plt Count MPV Sodium Potassium Chloride Carbon Dioxide Anion Gap BUN Creatinine Creat Clearance w eGFR Random Glucose Calcium Total Bilirubin AST ALT Alkaline Phosphatase Total Protein Albumin Urine Color Urine Appearance Urine pH Ur Specific [place] Urine Protein Urine Glucose (UA) Urine Ketones Urine Blood Urine Nitrite Urine Bilirubin Urine Urobilinogen Ur Leukocyte Esterase RPR Titer Nonreactive awake/alert ambulating no acute distress Assessment: 01/14/17 11:46 withdrawal sx Plan: continue detox increase fluids maintain dressing clean and change daily.
[2017-01-14] MEDS: ZOLPIDEM TARTRATE 10 MG TABLET (PARK CARE ONLY) PO PRN (22:12)
[2017-01-14] MEDS: THIAMINE HCL 100 MG TABLET (FP) PO SCH (22:12)
[2017-01-15] MEDS: diazePAM 5 MG TABLET PO SCH ×2 (09:46→22:07)
[2017-01-15] MEDS: diazePAM 5 MG TABLET PO PRN ×2 (09:47→14:22)
[2017-01-15] MEDS: NICOTINE 21 MG/24 HOURS TOPICAL PATCH TD SCH (10:19)
[2017-01-15] MEDS: METHADONE HCL 5 MG TABLET (FOR DETOX USE ONLY) PO SCH (10:19)
[2017-01-15] MEDS: PRENATAL VITAMINS W/ FOLIC ACID TABLET (FP) PO SCH (10:20)
--- NOTE | 2017-01-15 16:02 | PN ---
S Progress Note (SOAP) Subjective: Sweating, Tremors, Body Aches, Interrupted sleep. Objective: PT. A & O X 3, OBSERVED AMBULATING ON UNIT. ABDOMINAL DRAINAGE TUB AND BAG (GALLBLADDER) NOTED. NO SIGNS OF INFECTION NOTED AT SITED OF DRESSING. 01/15/17 15:58 Vital Signs Temperature 96.1 F L 01/15/17 14:28 Pulse Rate 86 01/15/17 14:28 Respiratory Rate 18 01/15/17 14:28 Blood Pressure 120/67 01/15/17 14:28 O2 Sat by Pulse Oximetry (%) Laboratory Last Values WBC 5.8 K/mm3 (4.0-10.0) D 01/13/17 07:00 RBC 4.26 M/mm3 (4.00-5.60) 01/13/17 07:00 Hgb 11.5 GM/dL (11.7-16.9) L 01/13/17 07:00 Hct 34.6 % (35.4-49) L 01/13/17 07:00 MCV 81.1 fl (80-96) 01/13/17 07:00 MCHC 33.1 g/dl (32.0-35.9) 01/13/17 07:00 RDW 16.1 % (11.9-15.9) H D 01/13/17 07:00 Plt Count 223 K/MM3 (134-434) 01/13/17 07:00 MPV 9.2 fl (7.5-11.1) 01/13/17 07:00 Sodium 139 mmol/L (136-145) 01/13/17 07:00 Potassium 4.0 mmol/L (3.5-5.1) 01/13/17 07:00 Chloride 103 mmol/L (98-107) 01/13/17 07:00 Carbon Dioxide 27 mmol/L (21-32) 01/13/17 07:00 Anion Gap 9 (8-16) 01/13/17 07:00 BUN 7 mg/dL (7-18) D 01/13/17 07:00 Creatinine 0.6 mg/dL (0.7-1.3) L 01/13/17 07:00 Creat Clearance w eGFR > 60 (>60) 01/13/17 07:00 Random Glucose 89 mg/dL (74-106) 01/13/17 07:00 Calcium 8.6 mg/dL (8.5-10.1) 01/13/17 07:00 Total Bilirubin 0.8 mg/dL (0.2-1.0) D 01/13/17 07:00 AST 27 U/L (15-37) D 01/13/17 07:00 ALT 67 U/L (12-78) D 01/13/17 07:00 Alkaline Phosphatase 140 U/L (45-117) H D 01/13/17 07:00 Total Protein 7.4 g/dl (6.4-8.2) 01/13/17 07:00 Albumin 3.2 g/dl (3.4-5.0) L 01/13/17 07:00 Urine Color [place] 01/12/17 23:00 Urine Appearance Clear 01/12/17 23:00 Urine pH 5.0 (5.0-8.0) 01/12/17 23:00 Ur Specific [place] 1.024 (1.001-1.035) 01/12/17 23:00 Urine Protein Negative (NEGATIVE) 01/12/17 23:00 Urine Glucose (UA) Negative (NEGATIVE) 01/12/17 23:00 Urine Ketones Negative (NEGATIVE) 01/12/17 23:00 Urine Blood Negative (NEGATIVE) 01/12/17 23:00 Urine Nitrite Negative (NEGATIVE) 01/12/17 23:00 Urine Bilirubin Negative (NEGATIVE) 01/12/17 23:00 Urine Urobilinogen Negative E.U./dl (0.2-1.0) 01/12/17 23:00 Ur Leukocyte Esterase Negative (NEGATIVE) 01/12/17 23:00 RPR Titer Nonreactive (NONREACTIVE) 01/13/17 07:00 LABS NOTED. Assessment: 01/15/17 16:00 WITHDRAWAL SYMPTOMS. Plan: CONTINUE DETOX. ADVISED PATIENT TO FOLLOW-UP WITH [facility] / REHAB MEDICAL PROVIDER AFTER DISCHARGE FROM DETOX FOR GENERAL MEDICAL ASSESSMENT, FOR GALLBLADDER DRAINAGE TUBE AND BAG , AND FOR ABNORMAL ADMISSION LAB VALUES.
[2017-01-15] MEDS: ZOLPIDEM TARTRATE 10 MG TABLET (PARK CARE ONLY) PO PRN (22:06)
[2017-01-15] MEDS: THIAMINE HCL 100 MG TABLET (FP) PO SCH (22:07)
[2017-01-15] MEDS: hydrOXYzine PAMOATE 50 MG CAPSULE (FP) PO PRN (22:07)
[2017-01-16] MEDS ORDERED: diazePAM 5 MG TABLET PO SCH (10:00)
[2017-01-16] MEDS ORDERED: METHADONE HCL 10 MG TABLET (FOR DETOX USE ONLY) PO SCH (10:00)
[2017-01-16] MEDS: PRENATAL VITAMINS W/ FOLIC ACID TABLET (FP) PO SCH (10:12)
[2017-01-16] MEDS: NICOTINE 21 MG/24 HOURS TOPICAL PATCH TD SCH (10:13)
--- NOTE | 2017-01-16 15:39 | PN ---
[facility] Progress Note (SOAP) Subjective: Tremor, chills, sweating, nausea, interrupted sleep Objective: 01/16/17 15:38 Last Vital Signs Temp Pulse Resp BP Pulse Ox 96.3 F L 87 18 136/73 01/16/17 14:08 01/16/17 14:08 01/16/17 14:08 01/16/17 14:08 Laboratory Tests 01/12/17 01/13/17 01/13/17 23:00 07:00 07:00 WBC 5.8 D RBC 4.26 Hgb 11.5 L Hct 34.6 L MCV 81.1 MCHC 33.1 RDW 16.1 H D Plt Count 223 MPV 9.2 Sodium 139 Potassium 4.0 Chloride 103 Carbon Dioxide 27 Anion Gap 9 BUN 7 D Creatinine 0.6 L Creat Clearance w eGFR > 60 Random Glucose 89 Calcium 8.6 Total Bilirubin 0.8 D AST 27 D ALT 67 D Alkaline Phosphatase 140 H D Total Protein 7.4 Albumin 3.2 L Urine Color [place] Urine Appearance Clear Urine pH 5.0 Ur Specific [place] 1.024 Urine Protein Negative Urine Glucose (UA) Negative Urine Ketones Negative Urine Blood Negative Urine Nitrite Negative Urine Bilirubin Negative Urine Urobilinogen Negative Ur Leukocyte Esterase Negative RPR Titer 01/13/17 07:00 WBC RBC Hgb Hct MCV MCHC RDW Plt Count MPV Sodium Potassium Chloride Carbon Dioxide Anion Gap BUN Creatinine Creat Clearance w eGFR Random Glucose Calcium Total Bilirubin AST ALT Alkaline Phosphatase Total Protein Albumin Urine Color Urine Appearance Urine pH Ur Specific [place] Urine Protein Urine Glucose (UA) Urine Ketones Urine Blood Urine Nitrite Urine Bilirubin Urine Urobilinogen Ur Leukocyte Esterase RPR Titer Nonreactive Labs noted Assessment: 01/16/17 15:38 Withdrawal symptoms Plan: Continue detox
[2017-01-16] MEDS: hydrOXYzine PAMOATE 50 MG CAPSULE (FP) PO PRN (22:04)
[2017-01-16] MEDS: THIAMINE HCL 100 MG TABLET (FP) PO SCH (22:05)
[2017-01-16] MEDS ORDERED: ZOLPIDEM TARTRATE 5 MG TABLET PO ONE (22:06)
[2017-01-17] MEDS ORDERED: METHADONE HCL 5 MG TABLET (FOR DETOX USE ONLY) PO SCH (06:00)
--- NOTE | 2017-01-17 08:45 | DS ---
[facility] Detox Discharge Summary Admission Date: 01/12/17 - History Present History: Alcohol Dependence, Cocaine Dependence, Opioid Dependence - Physical Exam Results Vital Signs: Vital Signs Temperature 97.3 F L 01/17/17 06:53 Pulse Rate 90 01/17/17 06:53 Respiratory Rate 20 01/17/17 06:53 Blood Pressure 112/69 01/17/17 06:53 O2 Sat by Pulse Oximetry (%) - Treatment Hospital Course: Detox Protocol Followed, Detoxed Safely, Responded well, Discharged Condition Good - Medication Discharge Medications: Ambulatory Orders Olanzapine [Zyprexa -] 5 mg PO DAILY #30 tablet 12/13/16 - Diagnosis (1) Cocaine dependence, uncomplicated Current Visit: Yes Status: Chronic (2) Nicotine dependence Current Visit: Yes Status: Chronic Qualifiers: Nicotine product type: cigarettes Substance use status: in withdrawal Qualified Code(s): F17.213 - Nicotine dependence, cigarettes, with withdrawal (3) Opioid dependence with withdrawal Current Visit: Yes Status: Chronic (4) Sedative, hypnotic or anxiolytic dependence with withdrawal, uncomplicated Current Visit: Yes Status: Chronic (5) Weight loss Current Visit: Yes Status: Chronic (6) Alcohol dependence with uncomplicated withdrawal Current Visit: No Status: Acute (7) Cholecystostomy drain infection Current Visit: Yes Status: Chronic - AMA Did Patient Leave Against Medical Advice: No (pt to nf/up at [facility] because of cholecystectomy drain . )
[2017-01-17 09:48] VITALS: BP 112/66; PULSE 92; TEMP 97.9
== END 2017-01-17 10:32 | disposition home or self-care (01) | DRG 773 ==
LOC: YASAS 14:09 → Y6N 18:20
PROVIDERS: ADMIT Internal Medicine Addiction Medicine; ATTEND Internal Medicine Addiction Medicine
PROC: HZ2ZZZZ Detoxification Services for Substance Abuse Treatment (ICD-10-PCS; principal; 2017-01-17)
DX: F11.23 Opioid dependence with withdrawal (principal); F13.230 Sedative, hypnotic or anxiolytic dependence with withdrawal, uncomplicated; F10.230 Alcohol dependence with withdrawal, uncomplicated; F14.20 Cocaine dependence, uncomplicated; F17.213 Nicotine dependence, cigarettes, with withdrawal; F19.24 Other psychoactive substance dependence with psychoactive substance-induced mood disorder; R63.4 Abnormal weight loss; Z68.21 Body mass index [BMI] 21.0-21.9, adult; Z59.0 Homelessness
CPT/HCPCS: 36415; 80053; 81003; 85027; 86593; 93005; 93010

== ENCOUNTER 2017-05-05 12:06 | Inpatient (IN) | payer OTHER ==
[2017-05-05 15:05] VITALS: BMI 19.6
--- NOTE | 2017-05-05 19:12 | HP ---
Admission ROS [facility] Chief Complaint: Seeking rehab services. Allergies/Adverse Reactions: Allergies Allergy/AdvReac Type Severity Reaction Status Date / Time shellfish derived Allergy Severe Swelling Verified 05/05/17 17:08 No Known Drug Allergies Allergy Verified 05/05/17 17:08 NKDA Allergy Uncoded 05/05/17 17:08 History of Present Illness: 31 y.o. man with a history of cocaine dependence is here for rehab services. He was last here for detox in 01/2017. He is currently admitted in [facility]. He reports he previously had a 4 year history of illicit drug abstinence. Exam Limitations: No Limitations - Ebola screening Have you traveled outside of the country in the last 21 days: No Have you had contact with anyone from an Ebola affected area: No Have you been sick,other than usual withdrawal symptoms: No - Review of Systems Constitutional: Loss of Appetite, Unintentional Wgt. Loss EENT: reports: Blurred Vision Respiratory: reports: Shortness of Breath Cardiac: reports: Lightheadedness GI: reports: Constipated : reports: Burning Musculoskeletal: reports: Back Pain Integumentary: reports: No Symptoms Reported Neuro: reports: Numbness (B/l UE) Endocrine: reports: No Symptoms Reported Hematology: reports: No Symptoms Reported Psychiatric: reports: Orientated x3, Depressed, other (Hx. of panic attacks) Other Systems: Reviewed and Negative Patient History - Patient Medical History Hx Anemia: No Hx Asthma: No Hx Chronic Obstructive Pulmonary Disease (COPD): No Hx Cancer: No Hx Cardiac Disorders: No Hx Congestive Heart Failure: No Hx Hypertension: No Hx Hypercholesterolemia: No Hx Pacemaker: No HX Cerebrovascular Accident: No Hx Seizures: No Hx Dementia: No Hx Diabetes: No Hx Gastrointestinal Disorders: Yes (Dyspepsia ) Hx Liver Disease: No Hx Genitourinary Disorders: No Hx Sexually Transmitted Disorders: No Hx Renal Disease (ESRD): No Hx Thyroid Disease: No Hx Human Immunodeficiency Virus (HIV): No (2014 last negative) Hx Hepatitis C: No Hx Depression: Yes (anxiety) Hx Suicide Attempt: No Hx Bipolar Disorder: No Hx Schizophrenia: No - Patient Surgical History Past Surgical History: Yes Hx Neurologic Surgery: No Hx Cataract Extraction: No Hx Cardiac Surgery: No Hx Lung Surgery: No Hx Breast Surgery: No Hx Breast Biopsy: No Hx Abdominal Surgery: No Hx Appendectomy: No Hx Cholecystectomy: Yes (04/05/2017) Hx Genitourinary Surgery: No Hx Section: No Hx Orthopedic Surgery: No Anesthesia Reaction: No - PPD History Previous Implant?: Yes Documented Results: Negative w/proof Implanted On Prior [facility] Admission?: Yes Date: 12/13/16 Results: 0 PPD to be Administered?: No - Reproductive History Patient is a Female of Child Bearing Age (11 -55 yrs old): No - Smoking Cessation Smoking history: Current every day smoker Have you smoked in the past 12 months: Yes Aproximately how many cigarettes per day: 5 Cigars Per Day: 0 Hx Chewing Tobacco Use: No Initiated information on smoking cessation: Yes 'Breaking Loose' booklet given: 05/05/17 - Substance & Tx. History Hx Alcohol Use: No Substance Use Type: Cocaine Hx Substance Use Treatment: Yes (Detox here in 01/2017; rehab [address] [facility]. ) - Substances Abused Cocaine Route: Injection Frequency: Daily Amount used: 1 AND 1/2 GRAMS Age of first use: 16 Date of Last Use: 05/04/17 Family Disease History - Family Disease History Family Disease History: Diabetes: Father, CA: Father Admission Physical Exam S - Vital Signs Vital Signs: Vital Signs - 24 hr 05/05/17 15:03 Temperature 96.8 F L Pulse Rate 76 Respiratory 18 Rate Blood Pressure 107/76 - Physical General Appearance: Yes: Nourished, Appropriately Dressed, Anxious HEENTM: Yes: Hearing grossly Normal, Normal ENT Inspection, Normocephalic, Normal Voice Respiratory: Yes: Lungs Clear, Normal Breath Sounds, No Respiratory Distress, No Accessory Muscle Use Neck: Yes: No masses,lesions,Nodules, Trachea in good position Breast: Yes: Breast Exam Deferred Cardiology: Yes: Regular Rhythm, Regular Rate Abdominal: Yes: Flat, Soft Genitourinary: Yes: Burning (C/o burning sensation upon urination. UA ordered.) Back: Yes: Normal Inspection Extremities: Yes: Normal Capillary Refill, Normal Inspection, Normal Range of Motion, Non-Tender Neurological: Yes: mechanic field service II-XII NML intact, Fully Oriented, Alert, Motor Strength 5/5, Normal Mood/Affect, Normal Response Integumentary: Yes: Normal Color, Dry, Warm Lymphatic: Yes: Within Normal Limits - Diagnostic (1) Cocaine dependence, uncomplicated Current Visit: Yes Status: Chronic (2) Nicotine dependence Current Visit: Yes Status: Chronic Qualifiers: Nicotine product type: cigarettes Substance use status: in withdrawal Qualified Code(s): F17.213 - Nicotine dependence, cigarettes, with withdrawal (3) Weight loss Current Visit: Yes Status: Acute (4) Opioid dependence on agonist therapy Current Visit: Yes Status: Acute Cleared for Admission [facility] - Detox or Rehab [facility] Level of Care: Observation Bed Claeared for Rehab Admission: Yes [facility] Breath Alcohol Content Breath Alcohol Content: 0 Urine Drug Screen - Results Drug Screen Negative: No Urine Drug Screen Results: AJ-Cocaine, PCP-Phencyclidine, MTD-Methadone
[2017-05-05] MEDS ORDERED: MAGNESIUM CITRATE 300 ML BOTTLE PO PRN (19:25)
[2017-05-05] MEDS ORDERED: MENTHOL/PHENOL 1 EACH UD MM PRN (19:25)
[2017-05-05] MEDS ORDERED: guaiFENesin/D-METHORPHAN HB 10 ML UNIT-DOSE CUPS PO PRN (19:25)
[2017-05-05] MEDS ORDERED: LOPERAMIDE HCL 2 MG CAPSULE PO PRN (19:25)
[2017-05-05] MEDS ORDERED: hydrOXYzine PAMOATE 50 MG CAPSULE (FP) PO PRN (19:25)
[2017-05-05] MEDS ORDERED: P-EPHED 60MG/TRIPROLIDI 2.5MG TABLET PO PRN (19:25)
[2017-05-05] MEDS ORDERED: IBUPROFEN 400 MG TABLET (FP) PO PRN (19:25)
[2017-05-05] MEDS ORDERED: MAGNESIUM HYDROX 2400MG/30ML ORAL SUSPENSION 30 ML CUP PO PRN (19:25)
[2017-05-05] MEDS ORDERED: ACETAMINOPHEN 325 MG TABLET (FP) PO PRN (19:25)
[2017-05-05] MEDS ORDERED: MAG HYDROX/AL HYDROX/SIMETH 30 ML UNIT-DOSE CUP PO PRN (19:25)
[2017-05-05 23:00] LABS: URINE APPEARANCE SLCLOUDY; URINE BILIRUBIN NEGATIVE (NEGATIVE); URINE BLOOD 2+ (NEGATIVE); URINE COLOR DKYELLOW; URINE GLUCOSE (UA) NEGATIVE (NEGATIVE); URINE KETONE NEGATIVE (NEGATIVE); URINE NITRITE NEGATIVE (NEGATIVE); URINE UROBILINOGEN 4.0 E.U/dl mg/dL (0.2-1.0)
[2017-05-05 23:14] LABS: URINE LEUK ESTERASE 2+ (NEGATIVE); URINE PROTEIN 1+ (NEGATIVE)
[2017-05-05 23:25] LABS: CALCIUM OXALATE CRYSTALS RARE /hpf (NONE SEEN); URINE BACTERIA MODERATE /hpf (NONE SEEN); URINE HYALINE CAST 2 /lpf; URINE MUCUS MANY; URINE RBC 55 /hpf (0-3); URINE WBC 171 /hpf (3-5)
[2017-05-05] MEDS: THIAMINE HCL 100 MG TABLET (FP) PO SCH (23:42)
--- NOTE | 2017-05-06 06:46 | HP ---
Psychiatrist Admission - Data Date of interview: 05/06/17 Admission source: [facility] Identifying data: This is the first [facility] admission for this 31 years old single male, father of an 11 years old son, unemployed on food stamp, homeless Medical History: Significant for GERD and history of surgery for removal of gallbladder. Patient is on methadone 80 mg/day. Smokes 5 cigarettes daily Psychiatric History: Reports that he started receiving treatment for depression and anxiety 2.5 years ago at a clinic in [place]. Claims that he was prescribed Prozac, Klonopin and Ambien. Reports that he last took medication in 2016. Denies history of previous psychiatric hospitalization or suicidal attempt. At present, reports feeling mildly depressed. 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 Deneied being on parole/probation at present Vital Signs: Vital Signs - 24 hr 05/05/17 05/06/17 05/06/17 15:03 00:30 03:30 Temperature 96.8 F L Pulse Rate 76 Respiratory 18 18 18 Rate Blood Pressure 107/76 05/06/17 06:34 Temperature 98.5 F Pulse Rate 73 Respiratory 18 Rate Blood Pressure 121/70 Allergies/Adverse Reactions: Allergies Allergy/AdvReac Type Severity Reaction Status Date / Time shellfish derived Allergy Severe Swelling Verified 05/05/17 17:08 No Known Drug Allergies Allergy Verified 05/05/17 17:08 NKDA Allergy Uncoded 05/05/17 17:08 Date of last physical exam: 05/05/17 Concur with the findings of this exam: Yes - Substance Abuse/Tx History Hx Substance Use: Yes Substance Use Type: Cocaine (Started using cocaine at age 16, consumes 1.5 gram daily. Last used on 05/04/17) Hx Substance Use Treatment: Yes (Multiple inpt detox @ [facility] and 2 @[facility]. Attends [facility]) - Admission Criteria Previous failed treatment: No Poor recovery environment: Yes Comorbidities: Yes Lacks judgement: Yes Mental Status Exam - Mental Status Exam Alert and Oriented to: Time, Place, Person Cognitive Function: Fair Patient Appearance: Well Groomed Mood: Depressed (mildly) Affect: Appropriate Patient Behavior: Cooperative Speech Pattern: Clear Voice Loudness: Normal Thought Process: Intact, Goal Oriented Thought Disorder: Not Present Hallucinations: Denies Suicidal Ideation: Denies Homicidal Ideation: Denies Insight/Judgement: Fair Sleep: Poorly Appetite: Good Muscle strength/Tone: Normal Gait/Station: Normal Psychiatric Findings - Problem List ([place] 1, 2,3) (1) Cocaine dependence, uncomplicated Current Visit: Yes Status: Chronic (2) Opioid dependence on agonist therapy Current Visit: Yes Status: Acute (3) Nicotine dependence Current Visit: Yes Status: Chronic Qualifiers: Nicotine product type: cigarettes Substance use status: in withdrawal Qualified Code(s): F17.213 - Nicotine dependence, cigarettes, with withdrawal (4) GERD (gastroesophageal reflux disease) Current Visit: Yes Status: Acute - Initial Treatment Plan Initial Treatment Plan: Monitor progress
[2017-05-06] MEDS ORDERED: METHADONE HCL 40 MG DISPERSABLE TABLET PO ONE (07:31)
--- NOTE | 2017-05-06 09:24 | EKG ---
Test Reason : Blood Pressure : / mmHG Vent. Rate : 058 BPM Atrial Rate : 058 BPM P-R Int : 158 ms QRS Dur : 086 ms QT Int : 404 ms P-R-T Axes : 050 031 040 degrees QTc Int : 396 ms SINUS BRADYCARDIA WITH SINUS ARRHYTHMIA NONSPECIFIC T WAVE ABNORMALITY ABNORMAL ECG Confirmed by KELLE MARVIN MD ([id number]) on 05/06/2017 9:24:07 AM Referred By: Confirmed By:KELLE MARVIN MD
[2017-05-06] MEDS: PRENATAL VITAMINS W/ FOLIC ACID TABLET (FP) PO SCH (10:03)
[2017-05-06] MEDS: NICOTINE 14 MG/24 HOURS TOPICAL PATCH TD SCH (10:04)
[2017-05-06] MEDS: THIAMINE HCL 100 MG TABLET (FP) PO SCH (22:05)
[2017-05-06] MEDS: diphenhydrAMINE HCL 50 MG CAPSULE PO PRN (22:05)
[2017-05-07] MEDS: METHADONE HCL 40 MG DISPERSABLE TABLET PO SCH (06:51)
[2017-05-07] MEDS: NICOTINE 14 MG/24 HOURS TOPICAL PATCH TD SCH (10:41)
[2017-05-07] MEDS: PRENATAL VITAMINS W/ FOLIC ACID TABLET (FP) PO SCH (10:41)
[2017-05-07] MEDS: THIAMINE HCL 100 MG TABLET (FP) PO SCH (21:54)
[2017-05-08] MEDS: METHADONE HCL 40 MG DISPERSABLE TABLET PO SCH (06:26)
[2017-05-08] MEDS: NICOTINE 14 MG/24 HOURS TOPICAL PATCH TD SCH (10:07)
[2017-05-08] MEDS: PRENATAL VITAMINS W/ FOLIC ACID TABLET (FP) PO SCH (10:07)
[2017-05-08] MEDS: THIAMINE HCL 100 MG TABLET (FP) PO SCH (21:35)
[2017-05-09] MEDS: METHADONE HCL 40 MG DISPERSABLE TABLET PO SCH (06:37)
[2017-05-09] MEDS: PRENATAL VITAMINS W/ FOLIC ACID TABLET (FP) PO SCH (09:59)
[2017-05-09] MEDS: NICOTINE 14 MG/24 HOURS TOPICAL PATCH TD SCH (09:59)
[2017-05-09] MEDS: THIAMINE HCL 100 MG TABLET (FP) PO SCH (21:39)
[2017-05-10] MEDS: METHADONE HCL 40 MG DISPERSABLE TABLET PO SCH (06:05)
[2017-05-10] MEDS: PRENATAL VITAMINS W/ FOLIC ACID TABLET (FP) PO SCH (10:14)
[2017-05-10] MEDS: NICOTINE 14 MG/24 HOURS TOPICAL PATCH TD SCH (10:14)
[2017-05-10] MEDS: THIAMINE HCL 100 MG TABLET (FP) PO SCH (21:45)
[2017-05-11] MEDS: METHADONE HCL 40 MG DISPERSABLE TABLET PO SCH (06:11)
[2017-05-11] MEDS: PRENATAL VITAMINS W/ FOLIC ACID TABLET (FP) PO SCH (09:41)
[2017-05-11] MEDS: NICOTINE 14 MG/24 HOURS TOPICAL PATCH TD SCH (09:41)
[2017-05-11] MEDS: NICOTINE POLACRILEX 2 MG GUM BC PRN (09:42)
[2017-05-11] MEDS: THIAMINE HCL 100 MG TABLET (FP) PO SCH (22:19)
[2017-05-12] MEDS: METHADONE HCL 40 MG DISPERSABLE TABLET PO SCH (06:19)
[2017-05-12] MEDS: PRENATAL VITAMINS W/ FOLIC ACID TABLET (FP) PO SCH (10:20)
[2017-05-12] MEDS: NICOTINE 14 MG/24 HOURS TOPICAL PATCH TD SCH (10:20)
[2017-05-12] MEDS: THIAMINE HCL 100 MG TABLET (FP) PO SCH (21:52)
[2017-05-13] MEDS: METHADONE HCL 40 MG DISPERSABLE TABLET PO SCH (04:49)
[2017-05-13] MEDS: PRENATAL VITAMINS W/ FOLIC ACID TABLET (FP) PO SCH (10:06)
[2017-05-13] MEDS: NICOTINE 14 MG/24 HOURS TOPICAL PATCH TD SCH (10:06)
[2017-05-13] MEDS: THIAMINE HCL 100 MG TABLET (FP) PO SCH (21:48)
[2017-05-14] MEDS: METHADONE HCL 40 MG DISPERSABLE TABLET PO SCH (06:09)
[2017-05-14] MEDS: NICOTINE 14 MG/24 HOURS TOPICAL PATCH TD SCH (10:12)
[2017-05-14] MEDS: PRENATAL VITAMINS W/ FOLIC ACID TABLET (FP) PO SCH (10:12)
[2017-05-14] MEDS: THIAMINE HCL 100 MG TABLET (FP) PO SCH (21:35)
[2017-05-15] MEDS: METHADONE HCL 40 MG DISPERSABLE TABLET PO SCH (06:03)
[2017-05-15] MEDS: NICOTINE 14 MG/24 HOURS TOPICAL PATCH TD SCH (10:00)
[2017-05-15] MEDS: PRENATAL VITAMINS W/ FOLIC ACID TABLET (FP) PO SCH (10:00)
[2017-05-15] MEDS: THIAMINE HCL 100 MG TABLET (FP) PO SCH (21:51)
[2017-05-16] MEDS: METHADONE HCL 40 MG DISPERSABLE TABLET PO SCH (06:11)
[2017-05-16] MEDS: NICOTINE 14 MG/24 HOURS TOPICAL PATCH TD SCH (10:05)
[2017-05-16] MEDS: PRENATAL VITAMINS W/ FOLIC ACID TABLET (FP) PO SCH (10:06)
[2017-05-16] MEDS: THIAMINE HCL 100 MG TABLET (FP) PO SCH (21:36)
[2017-05-16] MEDS: diphenhydrAMINE HCL 50 MG CAPSULE PO PRN (21:36)
[2017-05-17] MEDS: METHADONE HCL 40 MG DISPERSABLE TABLET PO SCH (06:03)
[2017-05-17] MEDS: PRENATAL VITAMINS W/ FOLIC ACID TABLET (FP) PO SCH (10:54)
[2017-05-17] MEDS: NICOTINE 14 MG/24 HOURS TOPICAL PATCH TD SCH (10:54)
[2017-05-17] MEDS: THIAMINE HCL 100 MG TABLET (FP) PO SCH (21:33)
[2017-05-17] MEDS: diphenhydrAMINE HCL 50 MG CAPSULE PO PRN (21:33)
[2017-05-18] MEDS: METHADONE HCL 40 MG DISPERSABLE TABLET PO SCH (06:06)
[2017-05-18] MEDS: NICOTINE 14 MG/24 HOURS TOPICAL PATCH TD SCH (10:27)
[2017-05-18] MEDS: PRENATAL VITAMINS W/ FOLIC ACID TABLET (FP) PO SCH (10:27)
[2017-05-18] MEDS: THIAMINE HCL 100 MG TABLET (FP) PO SCH (21:44)
[2017-05-18] MEDS: diphenhydrAMINE HCL 50 MG CAPSULE PO PRN (21:44)
[2017-05-19] MEDS: METHADONE HCL 40 MG DISPERSABLE TABLET PO SCH (06:01)
[2017-05-19 06:44] VITALS: BP 114/73; PULSE 76; TEMP 98.6
[2017-05-19] MEDS: PRENATAL VITAMINS W/ FOLIC ACID TABLET (FP) PO SCH (09:55)
[2017-05-19] MEDS: NICOTINE 14 MG/24 HOURS TOPICAL PATCH TD SCH (09:55)
[2017-05-19] MEDS: NICOTINE POLACRILEX 2 MG GUM BC PRN (09:56)
--- NOTE | 2017-05-19 13:56 | PN ---
Psychiatric Progress Note Vital Signs: Vital Signs Period Temp Pulse Resp BP Sys/Garcias Pulse Ox Last 24 Hr 98.6 F 76 18-18 114/73 Date of Session: 05/19/17 Chief Complaint:: Discharge Note HPI: Patient addressing Alcohol Dependence comorbid with Opoid Dependence on Agonist Therapy and Nicotine Dependence ROS: GERD was medically managed Current Medications: Active Medications Generic Name Dose Route Start Last Admin Trade Name Freq PRN Reason Stop Dose Admin Acetaminophen 650 mg 05/05/17 19:25 Tylenol - PO Q4H PRN PAIN Al Hydroxide/Mg Hydroxide 30 ml 05/05/17 19:25 Mylanta Oral Suspension - PO Q6H PRN DYSPEPSIA Diphenhydramine HCl 50 mg 05/05/17 19:25 05/18/17 21:44 Benadryl - PO 50 mg HSMR1 PRN Administration INSOMNIA Eucalyptus/Menthol/Phenol/Sorbitol 1 each 05/05/17 19:25 Cepastat Lozenge - MM Q4H PRN SORE THROAT Guaifenesin 10 ml 05/05/17 19:25 Robitussin Dm - PO Q6H PRN COUGH Hydroxyzine Pamoate 50 mg 05/05/17 19:25 Vistaril - PO Q4H PRN AGITATION Ibuprofen 400 mg 05/05/17 19:25 Motrin - PO Q6H PRN SEVERE PAIN Loperamide HCl 4 mg 05/05/17 19:25 Imodium - PO Q6H PRN DIARRHEA Magnesium Citrate 300 ml 05/05/17 19:25 Citroma - PO Q48H PRN CONSTIPATION Magnesium Hydroxide 30 ml 05/05/17 19:25 Milk Of Magnesia - PO DAILY PRN CONSTIPATION Methadone HCl 80 mg 05/20/17 06:00 Dolophine - PO 05/26/17 05:59 DAILY@0600 ABBY Nicotine 14 mg 05/06/17 10:00 05/19/17 09:55 Nicoderm Patch - TD 14 mg DAILY ABBY Administration Nicotine Polacrilex 2 mg 05/05/17 19:25 05/19/17 09:56 Nicorette Gum - BC 2 mg Q2H PRN Administration NICOTINE REPLACEMENT RX Multivit/Folic Acid/Iron 1 tab 05/06/17 10:00 05/19/17 09:55 Vitamins (Sjr) - PO 1 tab DAILY ABBY Administration Pseudoephedrine/Triprolidine 1 combo 05/05/17 19:25 Actifed - PO TID PRN NASAL CONGESTION Thiamine HCl 100 mg 05/05/17 22:00 05/18/17 21:44 Vitamin B1 - PO 100 mg HS ABBY Administration Lab tests reviewed: Yes Provider note:: Patient has completed this program today. He has partially met his treatment goals and will continue to address his issues in outpatient treatment at [facility]. Told chief writer that from his participation in this program, he has learned the importance of making meetings and have a sponsor. He is stable for discharge today Total face to face time:: 35 Mental Status Exam - Mental Status Exam Alert and Oriented to: Time, Place, Person Cognitive Function: Fair Patient Appearance: Well Groomed Mood: Hopeful, Euthymic Affect: Appropriate Patient Behavior: Cooperative Speech Pattern: Clear Voice Loudness: Normal Thought Process: Intact, Goal Oriented Thought Disorder: Not Present Hallucinations: Denies Suicidal Ideation: Denies Homicidal Ideation: Denies Insight/Judgement: Fair Sleep: Fair Appetite: Good Muscle strength/Tone: Normal Gait/Station: Normal Psychiatric Treatment Plan - Problem List (1) Cocaine dependence, uncomplicated Current Visit: Yes (2) Opioid dependence on agonist therapy Current Visit: Yes (3) Nicotine dependence Current Visit: Yes Qualifiers: Nicotine product type: cigarettes Substance use status: in withdrawal Qualified Code(s): F17.213 - Nicotine dependence, cigarettes, with withdrawal (4) GERD (gastroesophageal reflux disease) Current Visit: Yes Initial treatment plan: Patient is discharged today and referred to [facility] for outpatient treatment
[2017-05-20] MEDS ORDERED: METHADONE HCL 40 MG DISPERSABLE TABLET PO SCH (06:00)
== END 2017-05-19 14:30 | disposition home or self-care (01) | DRG 772 ==
LOC: YASAS 12:06 → Y3W 17:18
PROVIDERS: ADMIT Psychiatry & Neurology Psychiatry; ATTEND Psychiatry & Neurology Psychiatry
PROC: HZ42ZZZ Group Counseling for Substance Abuse Treatment, Cognitive-Behavioral (ICD-10-PCS; principal; 2017-05-05)
DX: F14.20 Cocaine dependence, uncomplicated (principal); F11.20 Opioid dependence, uncomplicated; F17.213 Nicotine dependence, cigarettes, with withdrawal; K21.9 Gastro-esophageal reflux disease without esophagitis; Z87.898 Personal history of other specified conditions; Z59.0 Homelessness
CPT/HCPCS: 81003; 81015; 93005; 93010

== ENCOUNTER 2017-07-14 14:28 | Inpatient (IN) | payer OTHER ==
[2017-07-14 14:47] VITALS: BMI 19.8
--- NOTE | 2017-07-14 17:44 | HP ---
COWS - Scale Resting Pulse: 1= [place] 81-100 Sweatin= Chills/Flushing Restless Observation: 3= Extraneous Movement Pupil Size: 0= Normal to Room Light Bone or Joint Aches: 2= Severe Diffuse Aches Runny Nose/ Eye Tearin= Runny Nose/Eyes GI Upset > 30mins: 3= Vomiting/Diarrhea Tremor Observation: 1= Tremor [place], Not Seen Yawning Observation: 1= 1-2x During Session Anxiety or Irritability: 2=Irritable/Anxious Goose Flesh Skin: 0=Smooth Skin COWS Score: 16 Admission [facility] [place] Chief Complaint: WITHDRAWAL SX Allergies/Adverse Reactions: Allergies Allergy/AdvReac Type Severity Reaction Status Date / Time shellfish derived Allergy Severe Swelling Verified 07/14/17 17:12 No Known Drug Allergies Allergy Verified 07/14/17 17:12 NKDA Allergy Uncoded 07/14/17 17:12 History of Present Illness: 31 YEARS OLD MALE WITH LONG HISTORY OF HEROIN COCAINE NICOTINE DEPENDENCE, HAS GERD WEIGH LOSS, WITHDRAWAL VOMITING AND DEPRESSION IS ADMITTED TO DETOX Exam Limitations: No Limitations - Ebola screening Have you traveled outside of the country in the last 21 days: No Have you had contact with anyone from an Ebola affected area: No Have you been sick,other than usual withdrawal symptoms: No Do you have a fever: No - Review of Systems Constitutional: Loss of Appetite, Changes in sleep, Unintentional Wgt. Loss, Unexplained wgt Loss EENT: reports: Blurred Vision (NEED EYE GLASSES) Respiratory: reports: No Symptoms reported Cardiac: reports: No Symptoms Reported GI: reports: Nausea, Poor Appetite, Poor Fluid Intake, Vomiting, Indigestion, Abdominal cramping : reports: No Symptoms Reported Musculoskeletal: reports: Back Pain, Joint Pain, Muscle Pain, Neck Pain Integumentary: reports: Change in Color (BOTH INNER ELBOWS) Neuro: reports: Tremors Endocrine: reports: No Symptoms Reported Hematology: reports: No Symptoms Reported Psychiatric: reports: Judgement Intact, Orientated x3, Anxious, Depressed Other Systems: Reviewed and Negative Patient History - Patient Medical History Hx Anemia: No Hx Asthma: No Hx Chronic Obstructive Pulmonary Disease (COPD): No Hx Cancer: No Hx Cardiac Disorders: No Hx Congestive Heart Failure: No Hx Hypertension: No Hx Hypercholesterolemia: No Hx Pacemaker: No HX Cerebrovascular Accident: No Hx Seizures: No Hx Dementia: No Hx Diabetes: No Hx Gastrointestinal Disorders: No Hx Liver Disease: No Hx Genitourinary Disorders: No Hx Sexually Transmitted Disorders: No Hx Renal Disease (ESRD): No Hx Thyroid Disease: No Hx Human Immunodeficiency Virus (HIV): No (2014 last negative) Hx Hepatitis C: Yes Hx Depression: Yes Hx Suicide Attempt: No Hx Bipolar Disorder: No Hx Schizophrenia: No - Patient Surgical History Past Surgical History: Yes Hx Neurologic Surgery: No Hx Cataract Extraction: No Hx Cardiac Surgery: No Hx Lung Surgery: No Hx Breast Surgery: No Hx Breast Biopsy: No Hx Abdominal Surgery: No Hx Appendectomy: No Hx Cholecystectomy: Yes (04/05/2017) Hx Genitourinary Surgery: No Hx Orthopedic Surgery: No Anesthesia Reaction: No - PPD History Previous Implant?: Yes Documented Results: Negative w/proof Implanted On Prior [facility] Admission?: Yes Date: 12/13/16 Results: 0 PPD to be Administered?: No - Smoking Cessation Smoking history: Current every day smoker Have you smoked in the past 12 months: Yes Aproximately how many cigarettes per day: 20 Cigars Per Day: 0 Hx Chewing Tobacco Use: No Initiated information on smoking cessation: Yes 'Breaking Loose' booklet given: 07/14/17 - Substance & Tx. History Hx Alcohol Use: No Hx Substance Use: Yes Substance Use Type: Cocaine, Heroin Hx Substance Use Treatment: Yes (05/05-05/19/17 [facility] - Substances Abused Heroin Route: Injection Frequency: Daily Amount used: 25 bags Age of first use: 20 Date of Last Use: 07/14/17 Cocaine Route: Injection Frequency: Daily Amount used: 2 gm Age of first use: 16 Date of Last Use: 07/14/17 Family Disease History - Family Disease History Family Disease History: Diabetes: Father, [place]: Father Admission Physical Exam BHS - Vital Signs Vital Signs: Vital Signs - 24 hr 07/14/17 14:46 Temperature 97.1 F L Pulse Rate 86 Respiratory 18 Rate Blood Pressure 115/74 - Physical General Appearance: Yes: Appropriately Dressed, Moderate Distress, Thin, Tremorous, Irritable, Sweating, Anxious HEENTM: Yes: Hearing grossly Normal, Normal ENT Inspection, Normocephalic, Normal Voice Respiratory: Yes: Chest Non-Tender, Lungs Clear, Normal Breath Sounds, No Respiratory Distress, No Accessory Muscle Use Neck: Yes: Supple, Trachea in good position Breast: Yes: Breasts Symetrical Cardiology: Yes: Regular Rhythm, Regular Rate, S1, S2 Abdominal: Yes: Non Tender, Soft, Increased Bowel Sounds Genitourinary: Yes: Within Normal Limits Back: Yes: Normal Inspection Musculoskeletal: Yes: full range of Motion, Gait Steady, Back pain, Muscle Pain Extremities: Yes: Normal Range of Motion, Non-Tender, Tremors Neurological: Yes: Fully Oriented, Alert, Motor Strength 5/5, Normal Response, Depressed Affect Integumentary: Yes: Warm, [place] Lymphatic: Yes: Within Normal Limits - Diagnostic (1) GERD (gastroesophageal reflux disease) Current Visit: Yes Status: Chronic Qualifiers: Esophagitis presence: without esophagitis Qualified Code(s): K21.9 - Gastro-esophageal reflux disease without esophagitis; K21.9 - Gastro- esophageal reflux disease without esophagitis; K21.9 - Gastro-esophageal reflux disease without esophagitis (2) Weight loss Current Visit: Yes Status: Acute (3) Nicotine dependence Current Visit: Yes Status: Acute Qualifiers: Nicotine product type: cigarettes Substance use status: in withdrawal Qualified Code(s): F17.213 - Nicotine dependence, cigarettes, with withdrawal; F17.213 - Nicotine dependence, cigarettes, with withdrawal (4) Opioid dependence with withdrawal Current Visit: Yes Status: Acute (5) Anxiety and depression Current Visit: Yes Status: Suspected (6) Hepatitis C carrier Current Visit: Yes Status: Resolved Cleared for Admission [facility] - Detox or Rehab [facility] Level of Care: Medically Managed Detox Regimen/Protocol: Methadone [facility] Breath Alcohol Content Breath Alcohol Content: 0 Urine Drug Screen - Results Drug Screen Negative: No Urine Drug Screen Results: AJ-Cocaine, OPI-Opiates
[2017-07-14] MEDS ORDERED: diphenhydrAMINE HCL 50 MG CAPSULE PO PRN (17:47)
[2017-07-14] MEDS ORDERED: guaiFENesin/D-METHORPHAN HB 10 ML UNIT-DOSE CUPS PO PRN (17:47)
[2017-07-14] MEDS ORDERED: ACETAMINOPHEN 325 MG TABLET (FP) PO PRN (17:47)
[2017-07-14] MEDS ORDERED: MENTHOL/PHENOL 1 EACH UD MM PRN (17:47)
[2017-07-14] MEDS ORDERED: MAGNESIUM CITRATE 300 ML BOTTLE PO PRN (17:47)
[2017-07-14] MEDS ORDERED: MAG HYDROX/AL HYDROX/SIMETH 30 ML UNIT-DOSE CUP PO PRN (17:47)
[2017-07-14] MEDS ORDERED: LOPERAMIDE HCL 2 MG CAPSULE PO PRN (17:47)
[2017-07-14] MEDS ORDERED: NICOTINE POLACRILEX 4 MG GUM BUC PRN (17:47)
[2017-07-14] MEDS ORDERED: MAGNESIUM HYDROX 2400MG/30ML ORAL SUSPENSION 30 ML CUP PO PRN (17:47)
[2017-07-14] MEDS ORDERED: P-EPHED 60MG/TRIPROLIDI 2.5MG TABLET PO PRN (17:47)
[2017-07-14] MEDS ORDERED: METHADONE HCL 10 MG TABLET (FOR DETOX USE ONLY) PO ONE ×2 (18:30→23:00)
[2017-07-14] MEDS ORDERED: ONDANSETRON *ODT* 4 MG TABLET SL ONE (18:30)
[2017-07-14] MEDS: diazePAM 5 MG TABLET PO PRN (19:48)
[2017-07-14 22:14] LABS: URINE APPEARANCE CLEAR; URINE BILIRUBIN NEGATIVE (NEGATIVE); URINE BLOOD 1+ (NEGATIVE); URINE COLOR YELLOW; URINE GLUCOSE (UA) NEGATIVE (NEGATIVE); URINE KETONE NEGATIVE (NEGATIVE); URINE NITRITE NEGATIVE (NEGATIVE); URINE PROTEIN NEGATIVE (NEGATIVE)
[2017-07-14 22:20] LABS: URINE BACTERIA RARE /hpf (NONE SEEN); URINE MUCUS RARE; URINE RBC 1 /hpf (0-3); URINE WBC 2 /hpf (3-5)
[2017-07-14 23:11] LABS: URINE LEUK ESTERASE Negative (NEGATIVE)
[2017-07-14] MEDS: THIAMINE HCL 100 MG TABLET (FP) PO SCH (23:18)
[2017-07-14] MEDS: RANITIDINE HCL 150 MG TABLET (FP) PO SCH (23:18)
--- NOTE | 2017-07-15 09:51 | EKG ---
Test Reason : Blood Pressure : / mmHG Vent. Rate : 082 BPM Atrial Rate : 082 BPM P-R Int : 150 ms QRS Dur : 084 ms QT Int : 378 ms P-R-T Axes : 060 048 046 degrees QTc Int : 441 ms NORMAL SINUS RHYTHM WITH SINUS ARRHYTHMIA VOLTAGE CRITERIA FOR LEFT VENTRICULAR HYPERTROPHY ABNORMAL ECG WHEN COMPARED WITH ECG OF 05-MAY-2017 20:50, NONSPECIFIC T WAVE ABNORMALITY NO LONGER EVIDENT IN ANTERIOR LEADS Confirmed by KELLE MARVIN MD ([id number]) on 07/15/2017 9:51:00 AM Referred By: Confirmed By:KELLE MARVIN MD
[2017-07-15 09:56] LABS: MCH 26.6 pg (25.7-33.7); MCHC 32.8 g/dl (32.0-35.9); MEAN CELL VOLUME 80.9 fl (80-96); MEAN PLT VOLUME 9.2 fl (7.5-11.1); PLATELET COUNT 338 K/MM3 (134-434); RDW 14.6 % (11.9-15.9); WHITE BLOOD COUNT 5.7 K/mm3 (4.0-10.0)
[2017-07-15] MEDS ORDERED: METHADONE HCL 10 MG TABLET (FOR DETOX USE ONLY) PO ONE (10:00)
[2017-07-15 10:09] LABS: ALBUMIN 3.6 g/dl (3.4-5.0); ALK PHOS 105 U/L (45-117); ANION GAP 6 (8-16); BILIRUBIN,TOTAL 0.6 mg/dL (0.2-1.0); CALCIUM 9.5 mg/dL (8.5-10.1); CO2 28 mmol/L (21-32); CREATININE 0.5 mg/dL (0.7-1.3); GLUCOSE,RANDOM 110 mg/dL (74-106); SGOT/AST 13 U/L (15-37); SGPT/ALT 33 U/L (12-78); TOT PROT 8.5 g/dl (6.4-8.2)
[2017-07-15] MEDS: diazePAM 5 MG TABLET PO PRN ×3 (10:13→20:30)
[2017-07-15] MEDS: PRENATAL VITAMINS W/ FOLIC ACID TABLET (FP) PO SCH ×2 (10:13→10:17)
[2017-07-15] MEDS: RANITIDINE HCL 150 MG TABLET (FP) PO SCH ×2 (10:13→22:04)
[2017-07-15] MEDS: NICOTINE 21 MG/24 HOURS TOPICAL PATCH TD SCH ×2 (10:15→10:16)
--- NOTE | 2017-07-15 12:19 | PN ---
BHS COWS - Scale Resting Pulse: 1= [place] 81-100 Sweatin= Chills/Flushing Restless Observation: 1= Difficult to Sit Still Pupil Size: 0= Normal to Room Light Bone or Joint Aches: 1= Mild Discomfort Runny Nose/ Eye Tearin= None GI Upset > 30mins: 3= Vomiting/Diarrhea Tremor Observation of Outstretched Hands: 2= Slight Tremor Visible Yawning Observation: 1= 1-2x During Session Anxiety or Irritability: 2=Irritable/Anxious Goose Flesh Skin: 3=Piloerection COWS Score: 15 BHS Progress Note (SOAP) Subjective: Vomiting, Tremors, Sweating, Chills. Objective: PT. A & O X 2 (DISORIENTED ABOUT DAY / DATE). PT. OBSERVED AMBULATING ON UNIT. NO ACUTE DISTRESS. 07/15/17 12:16 Vital Signs Temperature 96.8 F L 07/15/17 10:08 Pulse Rate 94 H 07/15/17 10:08 Respiratory Rate 18 07/15/17 10:08 Blood Pressure 127/80 07/15/17 10:08 O2 Sat by Pulse Oximetry (%) Laboratory Tests 07/14/17 07/15/17 07/15/17 21:30 06:00 06:00 WBC 5.7 RBC 4.35 Hgb 11.6 L Hct 35.2 L MCV 80.9 MCH 26.6 MCHC 32.8 RDW 14.6 Plt Count 338 D MPV 9.2 Sodium 135 L Potassium 4.3 Chloride 101 Carbon Dioxide 28 Anion Gap 6 L BUN 7 Creatinine 0.5 L Creat Clearance w eGFR > 60 Random Glucose 110 H D Calcium 9.5 Total Bilirubin 0.6 D AST 13 L D ALT 33 D Alkaline Phosphatase 105 D Total Protein 8.5 H Albumin 3.6 Urine Color Yellow Urine Appearance Clear Urine pH 6.0 Ur Specific [place] 1.010 Urine Protein Negative Urine Glucose (UA) Negative Urine Ketones Negative Urine Blood 1+ H Urine Nitrite Negative Urine Bilirubin Negative Urine Urobilinogen 2.0 Ur Leukocyte Esterase Negative Urine RBC 1 Urine WBC 2 Urine Bacteria Rare Urine Mucus Rare LABS NOTED. RPR RESULT PENDING. 07/15/17 12:18 Assessment: 07/15/17 12:17 WITHDRAWAL SYMPTOMS. Plan: CONTINUE DETOX. PRN ZOFRAN SL FOR VOMITING. INCREASE DAILY PO FLUID INTAKE.
--- NOTE | 2017-07-15 14:22 | CONSULT ---
[facility] Psychiatric Consult - Data Date of interview: 07/15/17 Admission source: [facility] Identifying data: Readmission to [facility] for this 31 y/o male seeking detox treatment on for cocaine and heroin dependence.Patient is ,a father of four,homeless,unemployed and supported on food stamps. Substance Abuse History: Confirmed by patient. Smoking Cessation. Smoking history: Current every day smoker. Have you smoked in the past 12 months: Yes. Aproximately how many cigarettes per day: 20. Cigars Per Day: 0. Hx Chewing Tobacco Use: No. Initiated information on smoking cessation: Yes. 'Breaking Loose' booklet given: 07/14/17. - Substance & Tx. History. Hx Alcohol Use: No. Hx Substance Use: Yes. Substance Use Type: Cocaine, Heroin. Hx Substance Use Treatment: Yes (05/05-05/19/17 [facility] - Substances Abused. Heroin. Route: Injection. Frequency: Daily. Amount used: 25 bags. Age of first use: 20. Date of Last Use: 07/14/17. Cocaine. Route: Injection. Frequency: Daily. Amount used: 2 gm. Age of first use: 16. Date of Last Use: 07/14/17 Medical History: Significant for GERD,weight loss,hepatitis C and history of cholecystectomy. Psychiatric History: Mr Camarillo is not a reliable historian.No current psychiatric OPD care providers.In this interview,the patient denies history of psychiatric hospitalizations.Not on psychotropic medications for several months.History of suicide attempts (overdoses with medications). Physical/Sexual Abuse/Trauma History: Patient denies history of abuse. Additional Comment: Urine Drug Screen Results: AJ-Cocaine, OPI-Opiates.Noted. Mental Status Exam - Mental Status Exam Alert and Oriented to: Time, Place, Person Cognitive Function: Grossly Intact Patient Appearance: Well Groomed Mood: Withdrawn, Irritable Affect: Mood Congruent Patient Behavior: Fatigued, Uncooperative, Guarded Speech Pattern: Delayed, Slurred Voice Loudness: Normal Thought Process: Goal Oriented Thought Disorder: Not Present Hallucinations: Denies Suicidal Ideation: Denies Homicidal Ideation: Denies Insight/Judgement: Poor Sleep: Fair Appetite: Good Muscle strength/Tone: Normal Gait/Station: Normal Psychiatric Findings - Problem List ([place] 1, 2,3) (1) Opioid dependence with withdrawal Current Visit: Yes Status: Acute (2) Cocaine dependence, uncomplicated Current Visit: Yes Status: Acute (3) Nicotine dependence Current Visit: Yes Status: Acute Qualifiers: Nicotine product type: cigarettes Substance use status: in withdrawal Qualified Code(s): F17.213 - Nicotine dependence, cigarettes, with withdrawal; F17.213 - Nicotine dependence, cigarettes, with withdrawal (4) Substance induced mood disorder Current Visit: Yes Status: Acute (5) Weight loss Current Visit: Yes Status: Chronic (6) GERD (gastroesophageal reflux disease) Current Visit: Yes Status: Chronic Qualifiers: Esophagitis presence: without esophagitis Qualified Code(s): K21.9 - Gastro-esophageal reflux disease without esophagitis; K21.9 - Gastro- esophageal reflux disease without esophagitis; K21.9 - Gastro-esophageal reflux disease without esophagitis (7) Hepatitis C carrier Current Visit: Yes Status: Resolved (8) Insomnia Current Visit: Yes Status: Acute - Initial Treatment Plan Initial Treatment Plan: Psychoeducation.Detoxification.Insomnia is addressed with benadryl 50 mg po at bedtime.Side effects/benefits discussed with the patient.patient agrees with this careplan.Observation.
[2017-07-15] MEDS: THIAMINE HCL 100 MG TABLET (FP) PO SCH (22:03)
[2017-07-15] MEDS: diphenhydrAMINE HCL 50 MG CAPSULE PO PRN (22:03)
[2017-07-16] MEDS: diazePAM 5 MG TABLET PO PRN ×3 (09:29→19:55)
[2017-07-16] MEDS: RANITIDINE HCL 150 MG TABLET (FP) PO SCH ×2 (09:30→22:23)
[2017-07-16] MEDS: NICOTINE 21 MG/24 HOURS TOPICAL PATCH TD SCH (09:31)
[2017-07-16] MEDS: PRENATAL VITAMINS W/ FOLIC ACID TABLET (FP) PO SCH (09:32)
[2017-07-16] MEDS ORDERED: METHADONE HCL 5 MG TABLET (FOR DETOX USE ONLY) PO ONE (10:00)
[2017-07-16] MEDS: ONDANSETRON *ODT* 4 MG TABLET SL PRN ×2 (13:35→22:25)
--- NOTE | 2017-07-16 19:49 | PN ---
BHS COWS - Scale Resting Pulse: 1= [place] 81-100 Sweatin= Chills/Flushing Restless Observation: 1= Difficult to Sit Still Pupil Size: 0= Normal to Room Light Bone or Joint Aches: 2= Severe Diffuse Aches Runny Nose/ Eye Tearin= None GI Upset > 30mins: 2= Nausea/Diarrhea Tremor Observation of Outstretched Hands: 2= Slight Tremor Visible Yawning Observation: 0= None Anxiety or Irritability: 2=Irritable/Anxious Goose Flesh Skin: 3=Piloerection COWS Score: 14 BHS Progress Note (SOAP) Subjective: Sweating, Stomach Cramping, Nausea, Tremors, Interrupted sleep, Diarrhea, Body Aches. Objective: PT. A & O X 3, OBSERVED AMBULATING ON UNIT. NO ACUTE DISTRESS. 07/16/17 19:45 Vital Signs Temperature 98.7 F 07/16/17 19:16 Pulse Rate 90 07/16/17 19:16 Respiratory Rate 16 07/16/17 19:16 Blood Pressure 119/73 07/16/17 19:16 O2 Sat by Pulse Oximetry (%) Laboratory Tests 07/14/17 07/15/17 07/15/17 21:30 06:00 06:00 WBC 5.7 RBC 4.35 Hgb 11.6 L Hct 35.2 L MCV 80.9 MCH 26.6 MCHC 32.8 RDW 14.6 Plt Count 338 D MPV 9.2 Sodium 135 L Potassium 4.3 Chloride 101 Carbon Dioxide 28 Anion Gap 6 L BUN 7 Creatinine 0.5 L Creat Clearance w eGFR > 60 Random Glucose 110 H D Calcium 9.5 Total Bilirubin 0.6 D AST 13 L D ALT 33 D Alkaline Phosphatase 105 D Total Protein 8.5 H Albumin 3.6 Urine Color Yellow Urine Appearance Clear Urine pH 6.0 Ur Specific [place] 1.010 Urine Protein Negative Urine Glucose (UA) Negative Urine Ketones Negative Urine Blood 1+ H Urine Nitrite Negative Urine Bilirubin Negative Urine Urobilinogen 2.0 Ur Leukocyte Esterase Negative Urine RBC 1 Urine WBC 2 Urine Bacteria Rare Urine Mucus Rare RPR Titer 07/15/17 06:00 WBC RBC Hgb Hct MCV MCH MCHC RDW Plt Count MPV Sodium Potassium Chloride Carbon Dioxide Anion Gap BUN Creatinine Creat Clearance w eGFR Random Glucose Calcium Total Bilirubin AST ALT Alkaline Phosphatase Total Protein Albumin Urine Color Urine Appearance Urine pH Ur Specific [place] Urine Protein Urine Glucose (UA) Urine Ketones Urine Blood Urine Nitrite Urine Bilirubin Urine Urobilinogen Ur Leukocyte Esterase Urine RBC Urine WBC Urine Bacteria Urine Mucus RPR Titer Nonreactive LABS NOTED. Assessment: 07/16/17 19:46 WITHDRAWAL SYMPTOMS. Plan: CONTINUE DETOX. PRN ZOFRAN SL FOR NAUSEA. PRN IMMODIUM FOR DIARRHEA. INCREASE DAILY PO FLUID INTAKE.
[2017-07-16] MEDS: THIAMINE HCL 100 MG TABLET (FP) PO SCH (22:23)
[2017-07-16] MEDS: diphenhydrAMINE HCL 50 MG CAPSULE PO PRN (22:25)
[2017-07-17] MEDS: diazePAM 5 MG TABLET PO PRN ×3 (05:02→14:47)
[2017-07-17] MEDS: ONDANSETRON *ODT* 4 MG TABLET SL PRN (08:21)
[2017-07-17] MEDS ORDERED: METHADONE HCL 5 MG TABLET (FOR DETOX USE ONLY) PO ONE (10:00)
[2017-07-17] MEDS: PRENATAL VITAMINS W/ FOLIC ACID TABLET (FP) PO SCH (10:03)
[2017-07-17] MEDS: RANITIDINE HCL 150 MG TABLET (FP) PO SCH ×2 (10:03→22:18)
[2017-07-17] MEDS: NICOTINE 21 MG/24 HOURS TOPICAL PATCH TD SCH (10:03)
--- NOTE | 2017-07-17 17:36 | EKG ---
Test Reason : Blood Pressure : / mmHG Vent. Rate : 079 BPM Atrial Rate : 079 BPM P-R Int : 160 ms QRS Dur : 098 ms QT Int : 382 ms P-R-T Axes : 039 048 019 degrees QTc Int : 438 ms NORMAL SINUS RHYTHM VOLTAGE CRITERIA FOR LEFT VENTRICULAR HYPERTROPHY CANNOT RULE OUT SEPTAL INFARCT , AGE UNDETERMINED ABNORMAL ECG WHEN COMPARED WITH ECG OF 14-JUL-2017 18:28, NO SIGNIFICANT CHANGE WAS FOUND Confirmed by VALERIE ART MD ([id number]) on 07/17/2017 5:36:23 PM Referred By: Confirmed By:VALERIE ART MD
--- NOTE | 2017-07-17 19:54 | PN ---
BHS Progress Note (SOAP) Subjective: Sweating,interrupted sleep,restless Objective: 07/17/17 19:53 Vital Signs - 8 hr 07/17/17 07/17/17 13:52 17:46 Temperature 98.8 F 99 F Pulse Rate 88 96 H Respiratory 18 16 Rate Blood Pressure 114/74 110/74 Laboratory Last Values WBC 5.7 K/mm3 (4.0-10.0) 07/15/17 06:00 RBC 4.35 M/mm3 (4.00-5.60) 07/15/17 06:00 Hgb 11.6 GM/dL (11.7-16.9) L 07/15/17 06:00 Hct 35.2 % (35.4-49) L 07/15/17 06:00 MCV 80.9 fl (80-96) 07/15/17 06:00 MCH 26.6 pg (25.7-33.7) 07/15/17 06:00 MCHC 32.8 g/dl (32.0-35.9) 07/15/17 06:00 RDW 14.6 % (11.9-15.9) 07/15/17 06:00 Plt Count 338 K/MM3 (134-434) D 07/15/17 06:00 MPV 9.2 fl (7.5-11.1) 07/15/17 06:00 Sodium 135 mmol/L (136-145) L 07/15/17 06:00 Potassium 4.3 mmol/L (3.5-5.1) 07/15/17 06:00 Chloride 101 mmol/L (98-107) 07/15/17 06:00 Carbon Dioxide 28 mmol/L (21-32) 07/15/17 06:00 Anion Gap 6 (8-16) L 07/15/17 06:00 BUN 7 mg/dL (7-18) 07/15/17 06:00 Creatinine 0.5 mg/dL (0.7-1.3) L 07/15/17 06:00 Creat Clearance w eGFR > 60 (>60) 07/15/17 06:00 Random Glucose 110 mg/dL (74-106) H D 07/15/17 06:00 Calcium 9.5 mg/dL (8.5-10.1) 07/15/17 06:00 Total Bilirubin 0.6 mg/dL (0.2-1.0) D 07/15/17 06:00 AST 13 U/L (15-37) L D 07/15/17 06:00 ALT 33 U/L (12-78) D 07/15/17 06:00 Alkaline Phosphatase 105 U/L (45-117) D 07/15/17 06:00 Total Protein 8.5 g/dl (6.4-8.2) H 07/15/17 06:00 Albumin 3.6 g/dl (3.4-5.0) 07/15/17 06:00 Urine Color Yellow 07/14/17 21:30 Urine Appearance Clear 07/14/17 21:30 Urine pH 6.0 (5.0-8.0) 07/14/17 21:30 Ur Specific [place] 1.010 (1.005-1.025) 07/14/17 21:30 Urine Protein Negative (NEGATIVE) 07/14/17 21:30 Urine Glucose (UA) Negative (NEGATIVE) 07/14/17 21:30 Urine Ketones Negative (NEGATIVE) 07/14/17 21:30 Urine Blood 1+ (NEGATIVE) H 07/14/17 21:30 Urine Nitrite Negative (NEGATIVE) 07/14/17 21:30 Urine Bilirubin Negative (NEGATIVE) 07/14/17 21:30 Urine Urobilinogen 2.0 mg/dL (0.2-1.0) 07/14/17 21:30 Ur Leukocyte Esterase Negative (NEGATIVE) 07/14/17 21:30 Urine RBC 1 /hpf (0-3) 07/14/17 21:30 Urine WBC 2 /hpf (3-5) 07/14/17 21:30 Urine Bacteria Rare /hpf (NONE SEEN) 07/14/17 21:30 Urine Mucus Rare 07/14/17 21:30 RPR Titer Nonreactive (NONREACTIVE) 07/15/17 06:00 labs noted Assessment: 07/17/17 19:54 Withdrawal sx. Plan: Continue detox
[2017-07-17 21:56] VITALS: TEMP 96.9
[2017-07-17] MEDS: THIAMINE HCL 100 MG TABLET (FP) PO SCH (22:18)
[2017-07-17] MEDS: diphenhydrAMINE HCL 50 MG CAPSULE PO PRN (22:18)
[2017-07-18 06:30] VITALS: BP 114/68; PULSE 84
[2017-07-18] MEDS ORDERED: METHADONE HCL 5 MG TABLET (FOR DETOX USE ONLY) PO ONE (09:03)
[2017-07-18] MEDS ORDERED: METHADONE HCL 10 MG TABLET (FOR DETOX USE ONLY) PO ONE (10:00)
--- NOTE | 2017-07-18 11:08 | DS ---
[facility] Detox Discharge Summary Admission Date: 07/14/17 Discharge Date: 07/18/17 - History Present History: Cocaine Dependence, Opioid Dependence Additional Comments: PT COMPLETED DETOX. ALERT O X 3.NAD. PT STATES PMD IS DR WINTERS AT [facility]. Pertinent Past History: GERD HEP C S/P CHOLECYSTOSTOMY DRAIN INFECTION - Physical Exam Results Vital Signs: Vital Signs Temperature 96.9 F L 07/18/17 06:29 Pulse Rate 84 07/18/17 06:29 Respiratory Rate 16 07/18/17 06:29 Blood Pressure 114/68 07/18/17 06:29 O2 Sat by Pulse Oximetry (%) Pertinent Admission Physical Exam Findings: WITHDRAWAL SX - Treatment Hospital Course: Detox Protocol Followed, Detoxed Safely, Responded well, Discharged Condition Good, Rehab Referral Accepted Patient has Accepted a Rehab Referral to: [facility] - Medication Discharge Medications: Ambulatory Orders NK [No Known Home Medication] 05/05/17 - Diagnosis (1) Cocaine dependence, uncomplicated Current Visit: Yes Status: Acute (2) Nicotine dependence Current Visit: Yes Status: Acute Qualifiers: Nicotine product type: cigarettes Substance use status: in withdrawal Qualified Code(s): F17.213 - Nicotine dependence, cigarettes, with withdrawal; F17.213 - Nicotine dependence, cigarettes, with withdrawal (3) Opioid dependence with withdrawal Current Visit: Yes Status: Acute (4) GERD (gastroesophageal reflux disease) Current Visit: Yes Status: Chronic Qualifiers: Esophagitis presence: without esophagitis Qualified Code(s): K21.9 - Gastro-esophageal reflux disease without esophagitis; K21.9 - Gastro- esophageal reflux disease without esophagitis; K21.9 - Gastro-esophageal reflux disease without esophagitis (5) Weight loss Current Visit: Yes Status: Chronic - AMA Did Patient Leave Against Medical Advice: No
[2017-07-19] MEDS ORDERED: METHADONE HCL 5 MG TABLET (FOR DETOX USE ONLY) PO ONE (06:00)
== END 2017-07-18 10:15 | disposition home or self-care (01) | DRG 773 ==
LOC: YASAS 14:28 → Y3N 17:37
PROVIDERS: ADMIT Internal Medicine; ATTEND Internal Medicine
PROC: HZ2ZZZZ Detoxification Services for Substance Abuse Treatment (ICD-10-PCS; principal; 2017-07-14)
DX: F11.23 Opioid dependence with withdrawal (principal); F14.20 Cocaine dependence, uncomplicated; F19.24 Other psychoactive substance dependence with psychoactive substance-induced mood disorder; F41.8 Other specified anxiety disorders; K21.9 Gastro-esophageal reflux disease without esophagitis; B18.2 Chronic viral hepatitis C; G47.00 Insomnia, unspecified; Z91.013 Allergy to seafood; Z87.898 Personal history of other specified conditions; Z59.0 Homelessness
CPT/HCPCS: 36415; 80053; 81003; 81015; 85027; 86593; 93005; 93010

== ENCOUNTER 2017-09-21 13:47 | Inpatient (IN) | payer OTHER ==
[2017-09-21 17:17] VITALS: BMI 21.4
--- NOTE | 2017-09-21 17:55 | HP ---
COWS - Scale Resting Pulse: 1= [place] 81-100 Sweatin= Chills/Flushing Restless Observation: 3= Extraneous Movement Pupil Size: 0= Normal to Room Light Bone or Joint Aches: 1= Mild Discomfort Runny Nose/ Eye Tearin= Nasal Congestion GI Upset > 30mins: 2= Nausea/Diarrhea Tremor Observation: 2= Slight Tremor Visible Yawning Observation: 1= 1-2x During Session Anxiety or Irritability: 2=Irritable/Anxious Goose Flesh Skin: 3=Piloerection COWS Score: 17 CIWA Score - CIWA Score Nausea/Vomitin-Mild Nausea/No Vomiting Muscle Tremors: 4-Moderate,w/Arms Extend Anxiety: 4-Mod. Anxious/Guarded Agitation: 4-Moderately Restless Paroxysmal Sweats: 1-Minimal Palms Moist Orientation: 0-Oriented Tacttile Disturbances: 0-None Auditory Disturbances: 0-None Visual Disturbances: 0-None Headache: 0-None Present CIWA-Ar Total Score: [address] [facility] - HPI Chief Complaint: WITHDRAWAL SX Allergies/Adverse Reactions: Allergies Allergy/AdvReac Type Severity Reaction Status Date / Time shellfish derived Allergy Severe Swelling Verified 09/21/17 17:49 No Known Drug Allergies Allergy Verified 09/21/17 17:49 NKDA Allergy Uncoded 09/21/17 17:49 History of Present Illness: 31 YEARS OLD MALE WITH LONG HISTORY OF ALCOHOL HEROIN NICOTINE DEPENDENCE HAS DEPRESSION IS ADMITTED TO DETOX Exam Limitations: No Limitations - Ebola screening Have you traveled outside of the country in the last 21 days: No (N) Have you had contact with anyone from an Ebola affected area: No Have you been sick,other than usual withdrawal symptoms: No Do you have a fever: No - Review of Systems Constitutional: Loss of Appetite, Changes in sleep, Unintentional Wgt. Loss, Unexplained wgt Loss EENT: reports: Blurred Vision (NEED EYE GLASSES) Respiratory: reports: No Symptoms reported, SOB with Exertion (DURING PANIC ATTACK) Cardiac: reports: No Symptoms Reported GI: reports: Nausea, Poor Appetite, Poor Fluid Intake, Indigestion, Abdominal cramping : reports: No Symptoms Reported Musculoskeletal: reports: Back Pain, Joint Pain, Muscle Pain, Neck Pain Integumentary: reports: Change in Color (INNER ELBOWS) Neuro: reports: Tremors Endocrine: reports: No Symptoms Reported Hematology: reports: No Symptoms Reported Psychiatric: reports: Judgement Intact, Orientated x3, Anxious, Depressed Other Systems: Reviewed and Negative Patient History - Patient Medical History Hx Anemia: No Hx Asthma: No Hx Chronic Obstructive Pulmonary Disease (COPD): No Hx Cancer: No Hx Cardiac Disorders: No Hx Congestive Heart Failure: No Hx Hypertension: No Hx Hypercholesterolemia: No Hx Pacemaker: No HX Cerebrovascular Accident: No Hx Seizures: No Hx Dementia: No Hx Diabetes: No Hx Gastrointestinal Disorders: No Hx Liver Disease: No Hx Genitourinary Disorders: No Hx Sexually Transmitted Disorders: No Hx Renal Disease (ESRD): No Hx Thyroid Disease: No Hx Human Immunodeficiency Virus (HIV): No (2014 last negative) Hx Hepatitis C: Yes Hx Depression: Yes Hx Suicide Attempt: No Hx Bipolar Disorder: No Hx Schizophrenia: No - Patient Surgical History Past Surgical History: Yes Hx Neurologic Surgery: No Hx Cataract Extraction: No Hx Cardiac Surgery: No Hx Lung Surgery: No Hx Breast Surgery: No Hx Breast Biopsy: No Hx Abdominal Surgery: No Hx Appendectomy: No Hx Cholecystectomy: Yes (04/05/2017) Hx Genitourinary Surgery: No Hx Orthopedic Surgery: No Anesthesia Reaction: No - PPD History Date: 12/13/16 Results: 0 - Smoking Cessation Smoking history: Current every day smoker Have you smoked in the past 12 months: Yes Aproximately how many cigarettes per day: 20 Cigars Per Day: 0 Hx Chewing Tobacco Use: No Initiated information on smoking cessation: Yes 'Breaking Loose' booklet given: 09/21/17 - Substance & Tx. History Hx Alcohol Use: Yes Hx Substance Use: Yes Substance Use Type: Alcohol, Heroin, Tranquilizers Hx Substance Use Treatment: Yes (07/2017 [facility]) - Substances Abused Heroin Route: Injection Frequency: Daily Amount used: 20 bags Age of first use: 20 Date of Last Use: 09/21/17 Benzodiazepine (Klonopin) Route: Oral Frequency: Daily Amount used: 8mg Age of first use: 25 Date of Last Use: 09/19/17 Cocaine Route: Injection Frequency: Daily Amount used: 1 gram Age of first use: 16 Date of Last Use: 09/21/17 Alcohol Route: Oral Frequency: Daily Amount used: 6 pk beer/ 1 pint cognac Age of first use: 12 Date of Last Use: 09/20/17 Family Disease History - Family Disease History Family Disease History: Diabetes: Father (), [place]: Father, Other: Father, Mother Admission Physical Exam [facility] - Vital Signs Vital Signs: Vital Signs - 24 hr 09/21/17 17:16 Temperature 99.8 F H Pulse Rate 95 H Respiratory 18 Rate Blood Pressure 131/71 - Physical General Appearance: Yes: Appropriately Dressed, Moderate Distress, Thin, Tremorous, Irritable, Sweating, Anxious HEENTM: Yes: Hearing grossly Normal, Normal ENT Inspection, Normocephalic, Normal Voice Respiratory: Yes: Chest Non-Tender, Lungs Clear, Normal Breath Sounds, No Respiratory Distress, No Accessory Muscle Use Neck: Yes: Supple, Trachea in good position Breast: Yes: Breasts Symetrical Cardiology: Yes: Regular Rhythm, S1, S2, Tachycardia Abdominal: Yes: Non Tender, Soft, Increased Bowel Sounds Genitourinary: Yes: Within Normal Limits Back: Yes: Normal Inspection Musculoskeletal: Yes: full range of Motion, Gait Steady, Back pain, Muscle Pain Extremities: Yes: Normal Range of Motion, Non-Tender, Tremors Neurological: Yes: Fully Oriented, Alert, Motor Strength 5/5, Normal Response, Depressed Affect Integumentary: Yes: Warm, [place] Lymphatic: Yes: Within Normal Limits - Diagnostic (1) Hepatitis C Current Visit: Yes Status: Chronic Qualifiers: Viral hepatitis chronicity: carrier Qualified Code(s): B18.2 - Chronic viral hepatitis C (2) Alcohol dependence with uncomplicated withdrawal Current Visit: Yes Status: Acute (3) Nicotine dependence Current Visit: Yes Status: Acute Qualifiers: Nicotine product type: cigarettes Substance use status: in withdrawal Qualified Code(s): F17.213 - Nicotine dependence, cigarettes, with withdrawal (4) Opioid dependence with withdrawal Current Visit: Yes Status: Acute (5) GERD (gastroesophageal reflux disease) Current Visit: Yes Status: Chronic Qualifiers: Esophagitis presence: without esophagitis Qualified Code(s): K21.9 - Gastro -esophageal reflux disease without esophagitis (6) Sedative, hypnotic or anxiolytic dependence with withdrawal, uncomplicated Current Visit: Yes Status: Acute (7) Weight loss Current Visit: Yes Status: Acute (8) Anxiety and depression Current Visit: Yes Status: Suspected Cleared for Admission [facility] - Detox or Rehab [facility] Level of Care: Medically Managed Detox Regimen/Protocol: Methadone/Valium [facility] Breath Alcohol Content Breath Alcohol Content: 0 Urine Drug Screen - Results Drug Screen Negative: No Urine Drug Screen Results: THC-Marijuana, AJ-Cocaine, OPI-Opiates
[2017-09-21] MEDS ORDERED: diazePAM 5 MG TABLET PO ONE (17:57)
[2017-09-21] MEDS ORDERED: MAGNESIUM CITRATE 300 ML BOTTLE PO PRN (17:57)
[2017-09-21] MEDS ORDERED: MAGNESIUM HYDROX 2400MG/30ML ORAL SUSPENSION 30 ML CUP PO PRN (17:57)
[2017-09-21] MEDS ORDERED: guaiFENesin/D-METHORPHAN HB 10 ML UNIT-DOSE CUPS PO PRN (17:57)
[2017-09-21] MEDS ORDERED: P-EPHED 60MG/TRIPROLIDI 2.5MG TABLET PO PRN (17:57)
[2017-09-21] MEDS ORDERED: NICOTINE POLACRILEX 4 MG GUM BC PRN (17:57)
[2017-09-21] MEDS ORDERED: MENTHOL/PHENOL 1 EACH UD MM PRN (17:57)
[2017-09-21] MEDS ORDERED: MAG HYDROX/AL HYDROX/SIMETH 30 ML UNIT-DOSE CUP PO PRN (17:57)
[2017-09-21] MEDS ORDERED: LOPERAMIDE HCL 2 MG CAPSULE PO PRN (17:57)
[2017-09-21] MEDS ORDERED: METHADONE HCL 10 MG TABLET (FOR DETOX USE ONLY) PO ONE ×2 (17:57→23:00)
[2017-09-21] MEDS ORDERED: ACETAMINOPHEN 325 MG TABLET (FP) PO PRN (17:57)
[2017-09-21] MEDS: THIAMINE HCL 100 MG TABLET (FP) PO SCH (22:46)
[2017-09-21] MEDS: RANITIDINE HCL 150 MG TABLET (FP) PO SCH (22:46)
[2017-09-21] MEDS: diazePAM 5 MG TABLET PO SCH (22:46)
[2017-09-21 23:11] LABS: URINE APPEARANCE CLEAR; URINE BILIRUBIN NEGATIVE (NEGATIVE); URINE BLOOD NEGATIVE (NEGATIVE); URINE COLOR LT. YELLOW; URINE GLUCOSE (UA) NEGATIVE (NEGATIVE); URINE KETONE NEGATIVE (NEGATIVE); URINE LEUK ESTERASE NEGATIVE (NEGATIVE); URINE NITRITE NEGATIVE (NEGATIVE); URINE PROTEIN NEGATIVE (NEGATIVE)
[2017-09-22] MEDS: diazePAM 5 MG TABLET PO SCH ×3 (06:02→22:07)
[2017-09-22] MEDS ORDERED: METHADONE HCL 10 MG TABLET (FOR DETOX USE ONLY) PO SCH (10:00)
--- NOTE | 2017-09-22 10:28 | CONSULT ---
[facility] Psychiatric Consult - Data Date of interview: 09/22/17 Admission source: [facility] Identifying data: This is 31 years vold male with no psychiatric hospitalization history intoxicated with: Alcohol, Opioids, Cocaine, Cannabis, Xanax and Nicotine Substance Abuse History: - Smoking Cessation. Smoking history: Current every day smoker. Have you smoked in the past 12 months: Yes. Aproximately how many cigarettes per day: 20. Cigars Per Day: 0. Hx Chewing Tobacco Use: No. Initiated information on smoking cessation: Yes. 'Breaking Loose' booklet given : 09/21/17. - Substance & Tx. History. Hx Alcohol Use: Yes. Hx Substance Use : Yes. Substance Use Type: Alcohol, Heroin, Tranquilizers. Hx Substance Use Treatment: Yes (07/2017 [facility]). - Substances Abused. Heroin. Route: Injection. Frequency: Daily. Amount used: 20 bags. Age of first use: 20. Date of Last Use: 09/21/17. Benzodiazepine (Klonopin). Route: Oral. Frequency: Daily. Amount used: 8mg. Age of first use: 25. Date of Last Use: 09/19/17. Cocaine. Route: Injection. Frequency: Daily. Amount used: 1 gram. Age of first use: 16. Date of Last Use: 09/21/17. Alcohol. Route: Oral. Frequency: Daily. Amount used: 6 pk beer/ 1 pint cognac. Age of first use: 12. Date of Last Use: 09/20/17 Medical History: Weight loss history, HepC+, GERD Psychiatric History: PATOENT RTEPORTS HISTORY OF DEPRESSION AND ANXIETY, REPORTS NO MEDICATIONS TAKING PRIOR TO ADMISSION Physical/Sexual Abuse/Trauma History: Denies Additional Comment: Observation. Detox Unit [facility] Protocol Mental Status Exam - Mental Status Exam Alert and Oriented to: Person Cognitive Function: Fair Patient Appearance: Unkempt Mood: Sad Affect: Flat Patient Behavior: Sedated Speech Pattern: Delayed Voice Loudness: Mildly Soft/Quiet Thought Process: Circumstantial Thought Disorder: Being Controlled Hallucinations: Denies Suicidal Ideation: Denies Homicidal Ideation: Denies Insight/Judgement: Fair Sleep: Difficulty falling asleep Appetite: Weight loss Muscle strength/Tone: Mild Hypotonicity Gait/Station: Shuffling Additional Comments: Observation. Detox Unit Carte Protocol Psychiatric Findings - Problem List ([place] 1, 2,3) (1) Alcohol dependence with uncomplicated withdrawal Current Visit: Yes Status: Acute (2) Nicotine dependence Current Visit: Yes Status: Acute Qualifiers: Nicotine product type: cigarettes Substance use status: in withdrawal Qualified Code(s): F17.213 - Nicotine dependence, cigarettes, with withdrawal (3) Opioid dependence with withdrawal Current Visit: Yes Status: Acute (4) Sedative, hypnotic or anxiolytic dependence with withdrawal, uncomplicated Current Visit: Yes Status: Acute (5) Anxiety and depression Current Visit: Yes Status: Suspected (6) Cocaine dependence, uncomplicated Current Visit: No Status: Acute (7) Opioid dependence on agonist therapy Current Visit: No Status: Acute (8) Substance induced mood disorder Current Visit: No Status: Acute (9) Uncomplicated sedative, hypnotic or anxiolytic withdrawal Current Visit: No Status: Acute - Initial Treatment Plan Initial Treatment Plan: Observation. Detox Unit Carte Protocol
[2017-09-22 11:10] LABS: URINE LEUK ESTERASE Negative (NEGATIVE)
[2017-09-22] MEDS: RANITIDINE HCL 150 MG TABLET (FP) PO SCH ×2 (11:27→22:07)
[2017-09-22] MEDS: NICOTINE 21 MG/24 HOURS TOPICAL PATCH TD SCH (11:27)
[2017-09-22] MEDS: PRENATAL VITAMINS W/ FOLIC ACID TABLET (FP) PO SCH (11:27)
[2017-09-22] MEDS: diazePAM 5 MG TABLET PO PRN ×2 (11:30→17:23)
--- NOTE | 2017-09-22 11:41 | EKG ---
Test Reason : Blood Pressure : / mmHG Vent. Rate : 084 BPM Atrial Rate : 084 BPM P-R Int : 160 ms QRS Dur : 088 ms QT Int : 358 ms P-R-T Axes : 062 054 040 degrees QTc Int : 423 ms NORMAL SINUS RHYTHM MODERATE VOLTAGE CRITERIA FOR LVH, MAY BE NORMAL VARIANT CANNOT RULE OUT SEPTAL INFARCT (CITED ON OR BEFORE 15-JUL-2017) ABNORMAL ECG WHEN COMPARED WITH ECG OF 15-JUL-2017 09:08, NO SIGNIFICANT CHANGE WAS FOUND Confirmed by KARO IBARRA MD ([id number]) on 09/22/2017 11:41:03 AM Referred By: Confirmed By:KARO IBARRA MD
--- NOTE | 2017-09-22 11:49 | PN ---
[facility] CIWA - CIWA Score Nausea/Vomitin-No Nausea/No Vomiting Muscle Tremors: 4-Moderate,w/Arms Extend Anxiety: 4-Mod. Anxious/Guarded Agitation: 4-Moderately Restless Paroxysmal Sweats: 3 Orientation: 0-Oriented Tacttile Disturbances: 0-None Auditory Disturbances: 0-None Visual Disturbances: 0-None Headache: 0-None Present CIWA-Ar Total Score: 15 [facility] COWS - Scale Resting Pulse: 1= [place] 81-100 Sweatin=Flushed/Facial Moisture Restless Observation: 0= Sits Still Pupil Size: 0= Normal to Room Light Bone or Joint Aches: 2= Severe Diffuse Aches Runny Nose/ Eye Tearin= Nasal Congestion GI Upset > 30mins: 1= Stomach Cramp Tremor Observation of Outstretched Hands: 2= Slight Tremor Visible Yawning Observation: 2= >3x During Session Anxiety or Irritability: 2=Irritable/Anxious Goose Flesh Skin: 0=Smooth Skin COWS Score: 13 [facility] Progress Note (SOAP) Subjective: sweats shakes interrupted sleep agitation body aches irritable Objective: 09/22/17 11:48 Vital Signs Temperature 99 F 09/22/17 10:57 Pulse Rate 86 09/22/17 10:57 Respiratory Rate 18 09/22/17 10:57 Blood Pressure 120/80 09/22/17 10:57 O2 Sat by Pulse Oximetry (%) Laboratory Tests 09/21/17 21:00 Urine Color Lt. yellow Urine Appearance Clear Urine pH 7.0 Ur Specific [place] 1.015 Urine Protein Negative Urine Glucose (UA) Negative Urine Ketones Negative Urine Blood Negative Urine Nitrite Negative Urine Bilirubin Negative Urine Urobilinogen 1.0 Ur Leukocyte Esterase Negative cbc, cmp, rpr ordered aaox3 ambulating no acute distress Assessment: 09/22/17 11:49 withdrawal sx Plan: continue detox increase fluids f/u pending labs
[2017-09-22] MEDS: THIAMINE HCL 100 MG TABLET (FP) PO SCH (22:06)
[2017-09-23] MEDS: diazePAM 5 MG TABLET PO PRN ×3 (02:56→17:19)
[2017-09-23] MEDS ORDERED: ONDANSETRON *ODT* 4 MG TABLET SL PRN (09:27)
[2017-09-23 10:23] LABS: BASO % 1.3 % (0-2.0); EOS % 6.2 % (0-4.5); MCH 26.1 pg (25.7-33.7); MCHC 32.7 g/dl (32.0-35.9); MEAN CELL VOLUME 79.7 fl (80-96); MEAN PLT VOLUME 8.6 fl (7.5-11.1); NEUT % 58.5 % (42.8-82.8); PLATELET COUNT 363 K/MM3 (134-434); RDW 15.3 % (11.9-15.9); WHITE BLOOD COUNT 3.9 K/mm3 (4.0-10.0)
[2017-09-23 10:31] LABS: ALBUMIN 3.5 g/dl (3.4-5.0); ANION GAP 8 (8-16); CALCIUM 9.6 mg/dL (8.5-10.1); CO2 29 mmol/L (21-32); GLUCOSE,RANDOM 98 mg/dL (74-106); SGOT/AST 15 U/L (15-37); SGPT/ALT 26 U/L (12-78)
[2017-09-23 10:33] LABS: ALK PHOS 81 U/L (45-117); BILIRUBIN,TOTAL 0.2 mg/dL (0.2-1.0); CREATININE 0.6 mg/dL (0.7-1.3); TOT PROT 8.6 g/dl (6.4-8.2)
[2017-09-23] MEDS: METHADONE HCL 5 MG TABLET (FOR DETOX USE ONLY) PO SCH (10:41)
[2017-09-23] MEDS: PRENATAL VITAMINS W/ FOLIC ACID TABLET (FP) PO SCH (10:41)
[2017-09-23] MEDS: cloNIDine HCL 0.1 MG TABLET PO SCH ×2 (10:43→22:39)
[2017-09-23] MEDS: CYCLOBENZAPRINE HCL 10 MG TABLET (FP) PO PRN (10:43)
[2017-09-23] MEDS: RANITIDINE HCL 150 MG TABLET (FP) PO SCH ×2 (10:43→22:39)
[2017-09-23] MEDS: diazePAM 5 MG TABLET PO SCH ×2 (10:43→22:39)
[2017-09-23 10:46] LABS: HIV 1 & 2 AB NEGATIVE; HIV 1 AGp24 NEGATIVE
--- NOTE | 2017-09-23 11:30 | PN ---
[facility] CIWA - CIWA Score Nausea/Vomitin Muscle Tremors: 3 Anxiety: 3 Agitation: 3 Paroxysmal Sweats: 1-Minimal Palms Moist Orientation: 0-Oriented Tacttile Disturbances: 1-Very Mild Itch/Numbness Auditory Disturbances: 1-Very Mild Visual Disturbances: 0-None Headache: 2-Mild CIWA-Ar Total Score: 17 [facility] COWS - Scale Resting Pulse: 1= [place] 81-100 Sweatin= Chills/Flushing Restless Observation: 3= Extraneous Movement Pupil Size: 1= Pupils >than Normal Bone or Joint Aches: 2= Severe Diffuse Aches Runny Nose/ Eye Tearin= Runny Nose/Eyes GI Upset > 30mins: 2= Nausea/Diarrhea Tremor Observation of Outstretched Hands: 2= Slight Tremor Visible Yawning Observation: 1= 1-2x During Session Anxiety or Irritability: 2=Irritable/Anxious Goose Flesh Skin: 0=Smooth Skin COWS Score: 17 [facility] Progress Note (SOAP) Subjective: alert,irritable,anxious,interrupted sleep,tremor,pain in the body and back Objective: 09/23/17 11:28 Vital Signs Temperature 98.9 F 09/23/17 11:16 Pulse Rate 91 H 09/23/17 11:16 Respiratory Rate 18 09/23/17 11:16 Blood Pressure 133/72 09/23/17 11:16 O2 Sat by Pulse Oximetry (%) Laboratory Last Values WBC 3.9 K/mm3 (4.0-10.0) L D 09/23/17 07:00 RBC 4.99 M/mm3 (4.00-5.60) 09/23/17 07:00 Hgb 13.0 GM/dL (11.7-16.9) D 09/23/17 07:00 Hct 39.8 % (35.4-49) 09/23/17 07:00 MCV 79.7 fl (80-96) L 09/23/17 07:00 MCH 26.1 pg (25.7-33.7) 09/23/17 07:00 MCHC 32.7 g/dl (32.0-35.9) 09/23/17 07:00 RDW 15.3 % (11.9-15.9) 09/23/17 07:00 Plt Count 363 K/MM3 (134-434) 09/23/17 07:00 MPV 8.6 fl (7.5-11.1) 09/23/17 07:00 Neutrophils % 58.5 % (42.8-82.8) 09/23/17 07:00 Lymphocytes % 22.5 % (8-40) 09/23/17 07:00 Monocytes % 11.5 % (3.8-10.2) H 09/23/17 07:00 Eosinophils % 6.2 % (0-4.5) H 09/23/17 07:00 Basophils % 1.3 % (0-2.0) 09/23/17 07:00 Sodium 137 mmol/L (136-145) 09/23/17 07:00 Potassium 4.7 mmol/L (3.5-5.1) 09/23/17 07:00 Chloride 100 mmol/L (98-107) 09/23/17 07:00 Carbon Dioxide 29 mmol/L (21-32) 09/23/17 07:00 Anion Gap 8 (8-16) 09/23/17 07:00 BUN 9 mg/dL (7-18) D 09/23/17 07:00 Creatinine 0.6 mg/dL (0.7-1.3) L 09/23/17 07:00 Creat Clearance w eGFR > 60 (>60) 09/23/17 07:00 Random Glucose 98 mg/dL (74-106) 09/23/17 07:00 Calcium 9.6 mg/dL (8.5-10.1) 09/23/17 07:00 Total Bilirubin 0.2 mg/dL (0.2-1.0) D 09/23/17 07:00 AST 15 U/L (15-37) 09/23/17 07:00 ALT 26 U/L (12-78) D 09/23/17 07:00 Alkaline Phosphatase 81 U/L (45-117) D 09/23/17 07:00 Total Protein 8.6 g/dl (6.4-8.2) H 09/23/17 07:00 Albumin 3.5 g/dl (3.4-5.0) 09/23/17 07:00 Urine Color Lt. yellow 09/21/17 21:00 Urine Appearance Clear 09/21/17 21:00 Urine pH 7.0 (5.0-8.0) 09/21/17 21:00 Ur Specific [place] 1.015 (1.001-1.035) 09/21/17 21:00 Urine Protein Negative (NEGATIVE) 09/21/17 21:00 Urine Glucose (UA) Negative (NEGATIVE) 09/21/17 21:00 Urine Ketones Negative (NEGATIVE) 09/21/17 21:00 Urine Blood Negative (NEGATIVE) 09/21/17 21:00 Urine Nitrite Negative (NEGATIVE) 09/21/17 21:00 Urine Bilirubin Negative (NEGATIVE) 09/21/17 21:00 Urine Urobilinogen 1.0 mg/dL (0.2-1.0) 09/21/17 21:00 Ur Leukocyte Esterase Negative (NEGATIVE) 09/21/17 21:00 RPR Titer Nonreactive (NONREACTIVE) 09/23/17 07:00 HIV 1&2 Antibody Screen Negative 09/22/17 07:00 HIV P24 Antigen Negative 09/22/17 07:00 Assessment: 09/23/17 11:29 withdrawal symptom Plan: continue detox,psychiatric reevaluation for medication for anxiety and depression
[2017-09-23] MEDS: NICOTINE 21 MG/24 HOURS TOPICAL PATCH TD SCH (11:48)
--- NOTE | 2017-09-23 17:20 | PN ---
Psychiatric Progress Note Vital Signs: Vital Signs Period Temp Pulse Resp BP Sys/Garcias Pulse Ox Last 24 Hr 98.1 F-98.9 F 79-101 16-20 107-153/64-87 Date of Session: 09/23/17 Chief Complaint:: "i'm having difficulty sleeping and i have anxiety." HPI: Pt. is a 31 year old male with a history of cocaine, heroin, and benzodiazepine dependence. ROS: Pt. alert and oriented X3. Current Medications: Active Medications Generic Name Dose Route Start Last Admin Trade Name Freq PRN Reason Stop Dose Admin Acetaminophen 650 mg 09/21/17 17:57 Tylenol - PO Q4H PRN FEVER OR PAIN Al Hydroxide/Mg Hydroxide 30 ml 09/21/17 17:57 Mylanta Oral Suspension - PO Q6H PRN DYSPEPSIA Clonidine 0.1 mg 09/23/17 10:00 09/23/17 10:43 Catapres - PO 0.1 mg BID ABBY Administration Cyclobenzaprine HCl 10 mg 09/23/17 09:25 09/23/17 10:43 Flexeril - PO 10 mg TID PRN Administration MUSCLE SPASMS Diazepam 5 mg 09/23/17 10:00 09/23/17 10:43 Valium - PO 09/24/17 22:01 5 mg BID ABBY Administration Diazepam 5 mg 09/25/17 10:00 Valium - PO 09/25/17 10:01 DAILY ABBY Diazepam 10 mg 09/21/17 17:57 09/23/17 07:53 Valium - PO 09/24/17 17:57 10 mg Q4H PRN Administration WITHDRAWAL(CONT SUBST) Eucalyptus/Menthol/Phenol/Sorbitol 1 each 09/21/17 17:57 Cepastat Lozenge - MM Q4H PRN SORE THROAT Guaifenesin 10 ml 09/21/17 17:57 Robitussin Dm - PO Q6H PRN COUGH Loperamide HCl 4 mg 09/21/17 17:57 Imodium - PO Q6H PRN DIARRHEA Magnesium Citrate 300 ml 09/21/17 17:57 Citroma - PO Q48H PRN CONSTIPATION Magnesium Hydroxide 30 ml 09/21/17 17:57 Milk Of Magnesia - PO DAILY PRN CONSTIPATION Methadone HCl 10 mg 09/25/17 10:00 Dolophine - PO 09/25/17 10:01 DAILY ABBY Methadone HCl 15 mg 09/23/17 10:00 09/23/17 10:41 Dolophine - PO 09/24/17 10:01 15 mg DAILY ABBY Administration Methadone HCl 5 mg 09/26/17 06:00 Dolophine - PO 09/26/17 06:01 DAILY@0600 ABBY Nicotine 21 mg 09/22/17 10:00 09/23/17 11:48 Nicoderm Patch - TD 21 mg DAILY ABBY Administration Nicotine Polacrilex 4 mg 09/21/17 17:57 Nicorette Gum - BC Q2H PRN NICOTINE REPLACEMENT RX Ondansetron HCl 4 mg 09/23/17 09:27 09/23/17 10:43 Zofran Odt - SL 4 mg Q6H PRN Administration NAUSEA AND/OR VOMITING Multivit/Folic Acid/Iron 1 tab 09/22/17 10:00 09/23/17 10:41 Vitamins (Sjr) - PO 1 tab DAILY ABBY Administration Pseudoephedrine/Triprolidine 1 combo 09/21/17 17:57 Actifed - PO TID PRN NASAL CONGESTION Ranitidine HCl 150 mg 09/21/17 22:00 09/23/17 10:43 Zantac - PO 150 mg BID ABBY Administration Thiamine HCl 100 mg 09/21/17 22:00 09/22/17 22:06 Vitamin B1 - PO 100 mg HS ABBY Administration Medication(s) Change(s): Yes. Will add ambien 10mg PRN for insomnia. Current Side Effect: No Lab tests ordered: No Lab tests reviewed: Yes Provider note:: Foreman/Project Manager approached bedside concerning the follow-up psychiatric consultation. Pt. requesting a sleep aid insomnia due to his inability to sleep consistently through the night. Pt. also wanting to speak about his anxiety secondary to discharge on Tuesday. Foreman/Project Manager able to comunicate effectively with patient and offer feedback which patient was receptive too. In addtion ambien 10mg qhs PRN to be ordered for insomnia. Chart reviewed and patient has been prescribed ambien 10mg in previous admission at [facility]. Pt reports favorable effect from previously taking ambien 10mg. Benefits and side effects (parasomnia ) discussed with patient. Verbal consent given. Pt. agreeable with plan. Will continue to monitor. Total face to face time:: 25 Mental Status Exam - Mental Status Exam Alert and Oriented to: Time, Place, Person Cognitive Function: Good Patient Appearance: Unkempt Mood: Sad Affect: Flat Patient Behavior: Fatigued, Cooperative Speech Pattern: Clear Voice Loudness: Moderately Soft/Quiet Thought Process: Goal Oriented Hallucinations: Denies Suicidal Ideation: Denies Homicidal Ideation: Denies Insight/Judgement: Poor Sleep: Poorly Appetite: Fair Muscle strength/Tone: Normal Gait/Station: Normal Psychiatric Treatment Plan - Problem List (1) Opioid dependence with withdrawal Current Visit: Yes (2) Sedative, hypnotic or anxiolytic dependence with withdrawal, uncomplicated Current Visit: Yes (3) Cocaine dependence, uncomplicated Current Visit: Yes (4) Insomnia Current Visit: Yes (5) Alcohol dependence with uncomplicated withdrawal Current Visit: Yes (6) Nicotine dependence Current Visit: Yes Qualifiers: Nicotine product type: cigarettes Substance use status: uncomplicated Qualified Code(s): F17.210 - Nicotine dependence, cigarettes, uncomplicated (7) Anxiety and depression Current Visit: Yes (8) Substance induced mood disorder Current Visit: No (9) Uncomplicated sedative, hypnotic or anxiolytic withdrawal Current Visit: No
[2017-09-23] MEDS: THIAMINE HCL 100 MG TABLET (FP) PO SCH (22:39)
[2017-09-23] MEDS: ZOLPIDEM TARTRATE 10 MG TABLET (PARK CARE ONLY) PO PRN (22:39)
[2017-09-24] MEDS: diazePAM 5 MG TABLET PO SCH ×2 (10:47→22:34)
[2017-09-24] MEDS: METHADONE HCL 5 MG TABLET (FOR DETOX USE ONLY) PO SCH (10:47)
[2017-09-24] MEDS: cloNIDine HCL 0.1 MG TABLET PO SCH ×2 (10:47→22:34)
[2017-09-24] MEDS: RANITIDINE HCL 150 MG TABLET (FP) PO SCH ×2 (10:47→22:34)
[2017-09-24] MEDS: NICOTINE 21 MG/24 HOURS TOPICAL PATCH TD SCH (10:47)
[2017-09-24] MEDS: PRENATAL VITAMINS W/ FOLIC ACID TABLET (FP) PO SCH (10:47)
--- NOTE | 2017-09-24 12:45 | PN ---
[facility] Progress Note (SOAP) Subjective: alert,irritable,anxious,interrupted sleep,pain in the body Objective: 09/24/17 12:44 Vital Signs Temperature 97.9 F 09/24/17 10:00 Pulse Rate 84 09/24/17 10:00 Respiratory Rate 18 09/24/17 10:00 Blood Pressure 120/69 09/24/17 10:00 O2 Sat by Pulse Oximetry (%) Assessment: 09/24/17 12:45 withdrawal symptom Plan: continue detox
[2017-09-24] MEDS: diazePAM 5 MG TABLET PO PRN (16:38)
[2017-09-24] MEDS: ZOLPIDEM TARTRATE 10 MG TABLET (PARK CARE ONLY) PO PRN (22:34)
[2017-09-24] MEDS: CYCLOBENZAPRINE HCL 10 MG TABLET (FP) PO PRN (22:34)
[2017-09-24] MEDS: THIAMINE HCL 100 MG TABLET (FP) PO SCH (22:34)
[2017-09-25] MEDS ORDERED: METHADONE HCL 10 MG TABLET (FOR DETOX USE ONLY) PO SCH (10:00)
[2017-09-25] MEDS ORDERED: diazePAM 5 MG TABLET PO SCH (10:00)
--- NOTE | 2017-09-25 10:04 | PN ---
[facility] Progress Note (SOAP) Subjective: mild joins pain feeling better Objective: 09/25/17 10:00 Vital Signs Temperature 97.5 F L 09/25/17 06:00 Pulse Rate 67 09/25/17 06:00 Respiratory Rate 16 09/25/17 06:00 Blood Pressure 96/58 09/25/17 06:00 O2 Sat by Pulse Oximetry (%) Laboratory Last Values WBC 3.9 K/mm3 (4.0-10.0) L D 09/23/17 07:00 RBC 4.99 M/mm3 (4.00-5.60) 09/23/17 07:00 Hgb 13.0 GM/dL (11.7-16.9) D 09/23/17 07:00 Hct 39.8 % (35.4-49) 09/23/17 07:00 MCV 79.7 fl (80-96) L 09/23/17 07:00 MCH 26.1 pg (25.7-33.7) 09/23/17 07:00 MCHC 32.7 g/dl (32.0-35.9) 09/23/17 07:00 RDW 15.3 % (11.9-15.9) 09/23/17 07:00 Plt Count 363 K/MM3 (134-434) 09/23/17 07:00 MPV 8.6 fl (7.5-11.1) 09/23/17 07:00 Neutrophils % 58.5 % (42.8-82.8) 09/23/17 07:00 Lymphocytes % 22.5 % (8-40) 09/23/17 07:00 Monocytes % 11.5 % (3.8-10.2) H 09/23/17 07:00 Eosinophils % 6.2 % (0-4.5) H 09/23/17 07:00 Basophils % 1.3 % (0-2.0) 09/23/17 07:00 Sodium 137 mmol/L (136-145) 09/23/17 07:00 Potassium 4.7 mmol/L (3.5-5.1) 09/23/17 07:00 Chloride 100 mmol/L (98-107) 09/23/17 07:00 Carbon Dioxide 29 mmol/L (21-32) 09/23/17 07:00 Anion Gap 8 (8-16) 09/23/17 07:00 BUN 9 mg/dL (7-18) D 09/23/17 07:00 Creatinine 0.6 mg/dL (0.7-1.3) L 09/23/17 07:00 Creat Clearance w eGFR > 60 (>60) 09/23/17 07:00 Random Glucose 98 mg/dL (74-106) 09/23/17 07:00 Calcium 9.6 mg/dL (8.5-10.1) 09/23/17 07:00 Total Bilirubin 0.2 mg/dL (0.2-1.0) D 09/23/17 07:00 AST 15 U/L (15-37) 09/23/17 07:00 ALT 26 U/L (12-78) D 09/23/17 07:00 Alkaline Phosphatase 81 U/L (45-117) D 09/23/17 07:00 Total Protein 8.6 g/dl (6.4-8.2) H 09/23/17 07:00 Albumin 3.5 g/dl (3.4-5.0) 09/23/17 07:00 Urine Color Lt. yellow 09/21/17 21:00 Urine Appearance Clear 09/21/17 21:00 Urine pH 7.0 (5.0-8.0) 09/21/17 21:00 Ur Specific [place] 1.015 (1.001-1.035) 09/21/17 21:00 Urine Protein Negative (NEGATIVE) 09/21/17 21:00 Urine Glucose (UA) Negative (NEGATIVE) 09/21/17 21:00 Urine Ketones Negative (NEGATIVE) 09/21/17 21:00 Urine Blood Negative (NEGATIVE) 09/21/17 21:00 Urine Nitrite Negative (NEGATIVE) 09/21/17 21:00 Urine Bilirubin Negative (NEGATIVE) 09/21/17 21:00 Urine Urobilinogen 1.0 mg/dL (0.2-1.0) 09/21/17 21:00 Ur Leukocyte Esterase Negative (NEGATIVE) 09/21/17 21:00 RPR Titer Nonreactive (NONREACTIVE) 09/23/17 07:00 HIV 1&2 Antibody Screen Negative 09/22/17 07:00 HIV P24 Antigen Negative 09/22/17 07:00 lab noted Assessment: 09/25/17 10:03 mild withdrawal sx Plan: observation with detox regimen
[2017-09-25] MEDS: RANITIDINE HCL 150 MG TABLET (FP) PO SCH ×2 (10:23→22:40)
[2017-09-25] MEDS: PRENATAL VITAMINS W/ FOLIC ACID TABLET (FP) PO SCH (10:24)
[2017-09-25] MEDS: NICOTINE 21 MG/24 HOURS TOPICAL PATCH TD SCH (10:24)
[2017-09-25] MEDS: cloNIDine HCL 0.1 MG TABLET PO PRN ×2 (10:27→19:00)
[2017-09-25] MEDS ORDERED: MINERAL OIL/PETROLAT/WATER TOPICAL CREAM 113 GM JAR TP SCH (22:00)
[2017-09-25] MEDS: THIAMINE HCL 100 MG TABLET (FP) PO SCH (22:40)
[2017-09-25] MEDS: ZOLPIDEM TARTRATE 10 MG TABLET (PARK CARE ONLY) PO PRN (22:43)
[2017-09-26] MEDS ORDERED: hydrOXYzine PAMOATE 50 MG CAPSULE (FP) PO ONE (00:40)
[2017-09-26] MEDS: CYCLOBENZAPRINE HCL 10 MG TABLET (FP) PO PRN (00:54)
[2017-09-26] MEDS ORDERED: METHADONE HCL 5 MG TABLET (FOR DETOX USE ONLY) PO SCH (06:00)
[2017-09-26 06:26] VITALS: BP 114/67; PULSE 71; TEMP 97.7
--- NOTE | 2017-09-26 08:27 | DS ---
[facility] Detox Discharge Summary Admission Date: 09/21/17 Discharge Date: 09/26/17 - History Present History: Alcohol Dependence, Cocaine Dependence, Opioid Dependence, Sedative Dependence - Physical Exam Results Vital Signs: Vital Signs Temperature 97.7 F 09/26/17 06:25 Pulse Rate 71 09/26/17 06:25 Respiratory Rate 18 09/26/17 06:25 Blood Pressure 114/67 09/26/17 06:25 O2 Sat by Pulse Oximetry (%) - Treatment Hospital Course: Detox Protocol Followed, Detoxed Safely, Responded well, Discharged Condition Good, Rehab Referral Accepted - Medication Discharge Medications: Ambulatory Orders NK [No Known Home Medication] 05/05/17 - Diagnosis (1) Alcohol dependence with uncomplicated withdrawal Current Visit: Yes Status: Chronic (2) Nicotine dependence Current Visit: Yes Status: Chronic Qualifiers: Nicotine product type: cigarettes Substance use status: in withdrawal Qualified Code(s): F17.213 - Nicotine dependence, cigarettes, with withdrawal (3) Opioid dependence with withdrawal Current Visit: Yes Status: Chronic (4) Sedative, hypnotic or anxiolytic dependence with withdrawal, uncomplicated Current Visit: Yes Status: Chronic (5) Weight loss Current Visit: Yes Status: Acute (6) GERD (gastroesophageal reflux disease) Current Visit: Yes Status: Chronic Qualifiers: Esophagitis presence: without esophagitis Qualified Code(s): K21.9 - Gastro -esophageal reflux disease without esophagitis (7) Hepatitis C Current Visit: No Status: Chronic Qualifiers: Viral hepatitis chronicity: carrier Qualified Code(s): B18.2 - Chronic viral hepatitis C (8) Anxiety and depression Current Visit: Yes Status: Suspected (9) Cocaine dependence, uncomplicated Current Visit: Yes Status: Chronic (10) Insomnia Current Visit: Yes Status: Acute (11) Substance induced mood disorder Current Visit: No Status: Acute (12) Uncomplicated sedative, hypnotic or anxiolytic withdrawal Current Visit: No Status: Acute (13) Cholecystostomy drain infection Current Visit: No Status: Chronic - AMA Did Patient Leave Against Medical Advice: No
[2017-09-26] MEDS: NICOTINE 21 MG/24 HOURS TOPICAL PATCH TD SCH (09:39)
[2017-09-26] MEDS: RANITIDINE HCL 150 MG TABLET (FP) PO SCH (09:39)
[2017-09-26] MEDS: PRENATAL VITAMINS W/ FOLIC ACID TABLET (FP) PO SCH (09:39)
== END 2017-09-26 09:12 | disposition home or self-care (01) | DRG 773 ==
LOC: YASAS 13:47 → Y6N 17:26
PROVIDERS: ADMIT Internal Medicine; ATTEND Internal Medicine
PROC: HZ2ZZZZ Detoxification Services for Substance Abuse Treatment (ICD-10-PCS; principal; 2017-09-21)
DX: F11.23 Opioid dependence with withdrawal (principal); F13.230 Sedative, hypnotic or anxiolytic dependence with withdrawal, uncomplicated; F10.230 Alcohol dependence with withdrawal, uncomplicated; F14.20 Cocaine dependence, uncomplicated; F17.210 Nicotine dependence, cigarettes, uncomplicated; F41.8 Other specified anxiety disorders; F19.24 Other psychoactive substance dependence with psychoactive substance-induced mood disorder; G47.00 Insomnia, unspecified; K21.9 Gastro-esophageal reflux disease without esophagitis; R63.4 Abnormal weight loss; Z68.21 Body mass index [BMI] 21.0-21.9, adult; Z59.0 Homelessness
CPT/HCPCS: 36415; 80053; 81003; 85025; 86593; 87389; 93005; 93010

== ENCOUNTER 2017-10-11 11:06 | Inpatient (IN) | payer OTHER ==
[2017-10-11 11:36] VITALS: BMI 20.5
--- NOTE | 2017-10-11 13:54 | HP ---
COWS - Scale Resting Pulse: 1= [place] 81-100 Sweatin= Chills/Flushing Restless Observation: 3= Extraneous Movement Pupil Size: 2= Moderately Dilated Bone or Joint Aches: 4=Acute Joint/Muscle Pain Runny Nose/ Eye Tearin= Runny Nose/Eyes GI Upset > 30mins: 1= Stomach Cramp Tremor Observation: 1= Tremor [place], Not Seen Yawning Observation: 2= >3x During Session Anxiety or Irritability: 2=Irritable/Anxious Goose Flesh Skin: 0=Smooth Skin COWS Score: 19 CIWA Score - CIWA Score Nausea/Vomitin-Int. Nausea w/Dry Heave (and diarrhea) Muscle Tremors: 4-Moderate,w/Arms Extend Anxiety: 4-Mod. Anxious/Guarded Agitation: 3 Paroxysmal Sweats: 1-Minimal Palms Moist Orientation: 0-Oriented Tacttile Disturbances: 3-Moderate Itch/Numb/Burn Auditory Disturbances: 0-None Visual Disturbances: 0-None Headache: 1-Very Mild CIWA-Ar Total Score: 20 Admission [facility] - HPI Chief Complaint: WITHDRAWAL SX FROM HEROIN,ALCOHOL AND XANAX/KLONOPIN Allergies/Adverse Reactions: Allergies Allergy/AdvReac Type Severity Reaction Status Date / Time shellfish derived Allergy Severe Swelling Verified 10/11/17 13:28 No Known Drug Allergies Allergy Verified 10/11/17 13:28 NKDA Allergy Uncoded 10/11/17 13:28 History of Present Illness: 32 Y/O H/M WITH A HX OF HEROIN,ALCOHOL,BENZO,COCAINE AND MARIJUANA DEPENDENCE SEEKING DETOX [place] Exam Limitations: No Limitations - Ebola screening Have you traveled outside of the country in the last 21 days: No (N) Have you had contact with anyone from an Ebola affected area: No Have you been sick,other than usual withdrawal symptoms: No Do you have a fever: No - Review of Systems Constitutional: Chills, Loss of Appetite, Night Sweats, Changes in sleep, Unexplained wgt Loss EENT: reports: Blurred Vision (WEARS GLASSES), Tearing, Nose Congestion, Dental Problems (BROKEN TOOTH) Respiratory: reports: No Symptoms reported Cardiac: reports: No Symptoms Reported GI: reports: Constipated, Diarrhea, Nausea, Poor Appetite, Poor Fluid Intake, Vomiting : reports: No Symptoms Reported Musculoskeletal: reports: Back Pain, Joint Pain, Muscle Pain Integumentary: reports: Bruising (IVD INJ SITES ON BOTH ELBOWS) Neuro: reports: Headache, Numbness, Tremors Endocrine: reports: No Symptoms Reported Hematology: reports: No Symptoms Reported Psychiatric: reports: Orientated x3, Anxious, Depressed, other (PANIC DISORDER) Other Systems: Reviewed and Negative Patient History - Patient Medical History Hx Anemia: No Hx Asthma: No Hx Chronic Obstructive Pulmonary Disease (COPD): No Hx Cancer: No Hx Cardiac Disorders: No Hx Congestive Heart Failure: No Hx Hypertension: No Hx Hypercholesterolemia: No Hx Pacemaker: No HX Cerebrovascular Accident: No Hx Seizures: No Hx Dementia: No Hx Diabetes: No Hx Gastrointestinal Disorders: Yes (GERD-ZANTAC IN THE PAST ) Hx Liver Disease: No Hx Genitourinary Disorders: No Hx Sexually Transmitted Disorders: No Hx Renal Disease (ESRD): No Hx Thyroid Disease: No Hx Human Immunodeficiency Virus (HIV): No (2014 last negative) Hx Hepatitis C: Yes (NO TREATMENT YET) Hx Depression: Yes (AND ANXIETY WITH PANIC ATTACKS--NO CURRENT MEDS) Hx Suicide Attempt: No (DENIES) Hx Bipolar Disorder: No Hx Schizophrenia: No - Patient Surgical History Past Surgical History: Yes Hx Neurologic Surgery: No Hx Cataract Extraction: No Hx Cardiac Surgery: No Hx Lung Surgery: No Hx Breast Surgery: No Hx Breast Biopsy: No Hx Abdominal Surgery: No Hx Appendectomy: No Hx Cholecystectomy: Yes (04/05/2017) Hx Genitourinary Surgery: No Hx Section: No Hx Orthopedic Surgery: No Anesthesia Reaction: No - PPD History Previous Implant?: Yes Documented Results: Negative w/proof Implanted On Prior [facility] Admission?: Yes Date: 12/13/16 Results: 0 PPD to be Administered?: No - Reproductive History Patient is a Female of Child Bearing Age (11 -55 yrs old): No (MALE) - Smoking Cessation Smoking history: Current every day smoker Have you smoked in the past 12 months: Yes Aproximately how many cigarettes per day: 10 Cigars Per Day: 0 Hx Chewing Tobacco Use: No Initiated information on smoking cessation: Yes 'Breaking Loose' booklet given: 10/11/17 - Substance & Tx. History Hx Alcohol Use: Yes (MELODY/TIQUILLA;BEER) Hx Substance Use: Yes (HEROIN/XANAX/KLONOPIN) Substance Use Type: Alcohol, Cocaine, Heroin, Tranquilizers Hx Substance Use Treatment: Yes (LAST TX AT [facility] DETOX) - Substances Abused Alcohol Route: Oral Frequency: Daily Amount used: henessey(1 pint) Age of first use: 13 Date of Last Use: 10/10/17 Heroin Route: Injection Frequency: Daily Amount used: 15 bags Age of first use: 21 Date of Last Use: 10/11/17 Benzodiazepine (Klonopin) Route: Oral Frequency: Daily Amount used: 3-4 pills Age of first use: 24 Date of Last Use: 10/09/17 Cocaine Route: Injection Frequency: Daily Amount used: 1 gram Age of first use: 16 Date of Last Use: 10/11/17 Marijuana/Hashish Route: Smoking Frequency: Daily Amount used: $5 Age of first use: 14 Date of Last Use: 10/11/17 Family Disease History - Family Disease History Family Disease History: Diabetes: Father (), CA: Father, Other: Father, Mother Admission Physical Exam [facility] - Vital Signs Vital Signs: Vital Signs - 24 hr 10/11/17 11:34 Temperature 99.1 F Pulse Rate 98 H Respiratory 18 Rate Blood Pressure 132/80 - Physical General Appearance: Yes: Moderate Distress, Irritable, Anxious HEENTM: Yes: EOMI, Normocephalic, TONYA, Pharynx Normal Respiratory: Yes: Chest Non-Tender, Lungs Clear, Normal Breath Sounds Neck: Yes: No masses,lesions,Nodules, Supple, Trachea in good position Breast: Yes: Breast Exam Deferred Cardiology: Yes: Regular Rhythm, Regular Rate, S1, S2 Abdominal: Yes: Normal Bowel Sounds, Non Tender, Soft Genitourinary: Yes: Other Back: Yes: Within Normal Limits Musculoskeletal: Yes: full range of Motion, Gait Steady Extremities: Yes: Normal Range of Motion, Non-Tender Neurological: Yes: health commissioner II-XII NML intact, Fully Oriented, Alert, Motor Strength 5/5 Integumentary: Yes: Dry, Warm Lymphatic: Yes: Within Normal Limits - Diagnostic (1) Alcohol dependence with uncomplicated withdrawal Current Visit: Yes Status: Acute (2) Cocaine dependence, uncomplicated Current Visit: Yes Status: Acute (3) GERD (gastroesophageal reflux disease) Current Visit: Yes Status: Chronic Qualifiers: Esophagitis presence: esophagitis presence not specified Qualified Code(s) : K21.9 - Gastro-esophageal reflux disease without esophagitis (4) Hepatitis C Current Visit: Yes Status: Chronic Qualifiers: Viral hepatitis chronicity: carrier Qualified Code(s): B18.2 - Chronic viral hepatitis C (5) Nicotine dependence Current Visit: Yes Status: Acute Qualifiers: Nicotine product type: cigarettes Substance use status: in withdrawal Qualified Code(s): F17.213 - Nicotine dependence, cigarettes, with withdrawal (6) Opioid dependence with withdrawal Current Visit: Yes Status: Acute (7) Sedative, hypnotic or anxiolytic dependence with withdrawal, uncomplicated Current Visit: Yes Status: Acute Cleared for Admission S - Detox or Rehab [facility] Level of Care: Medically Managed Detox Regimen/Protocol: Methadone/Valium S Breath Alcohol Content Breath Alcohol Content: 0 Urine Drug Screen - Results Drug Screen Negative: No Urine Drug Screen Results: THC-Marijuana, AJ-Cocaine, OPI-Opiates, BZO- Benzodiazepines
[2017-10-11] MEDS ORDERED: METHADONE HCL 10 MG TABLET (FOR DETOX USE ONLY) PO ONE ×2 (14:11→23:00)
[2017-10-11] MEDS ORDERED: NICOTINE POLACRILEX 2 MG GUM BUC PRN (14:11)
[2017-10-11] MEDS ORDERED: ACETAMINOPHEN 325 MG TABLET (FP) PO PRN (14:11)
[2017-10-11] MEDS ORDERED: LOPERAMIDE HCL 2 MG CAPSULE PO PRN (14:11)
[2017-10-11] MEDS ORDERED: P-EPHED 60MG/TRIPROLIDI 2.5MG TABLET PO PRN (14:11)
[2017-10-11] MEDS ORDERED: IBUPROFEN 400 MG TABLET (FP) PO PRN (14:11)
[2017-10-11] MEDS ORDERED: MAGNESIUM CITRATE 300 ML BOTTLE PO PRN (14:11)
[2017-10-11] MEDS ORDERED: guaiFENesin/D-METHORPHAN HB 10 ML UNIT-DOSE CUPS PO PRN (14:11)
[2017-10-11] MEDS ORDERED: MENTHOL/PHENOL 1 EACH UD MM PRN (14:11)
[2017-10-11] MEDS ORDERED: MAGNESIUM HYDROX 2400MG/30ML ORAL SUSPENSION 30 ML CUP PO PRN (14:11)
[2017-10-11] MEDS ORDERED: diazePAM 5 MG TABLET PO ONE (15:09)
[2017-10-11] MEDS: NICOTINE 14 MG/24 HOURS TOPICAL PATCH TD SCH (15:43)
[2017-10-11] MEDS: diazePAM 5 MG TABLET PO PRN (17:21)
[2017-10-11 22:06] LABS: HEMATOCRIT 38.5 % (35.4-49); HEMOGLOBIN 12.5 GM/dL (11.7-16.9); MCH 25.8 pg (25.7-33.7); MCHC 32.5 g/dl (32.0-35.9); MEAN CELL VOLUME 79.3 fl (80-96); MEAN PLT VOLUME 9.2 fl (7.5-11.1); PLATELET COUNT 382 K/MM3 (134-434); RBC 4.86 M/mm3 (4.00-5.60); RDW 15.6 % (11.9-15.9); WHITE BLOOD COUNT 3.6 K/mm3 (4.0-10.0)
[2017-10-11] MEDS: THIAMINE HCL 100 MG TABLET (FP) PO SCH (22:21)
[2017-10-11] MEDS: RANITIDINE HCL 150 MG TABLET (FP) PO SCH (22:21)
[2017-10-11] MEDS: diazePAM 5 MG TABLET PO SCH (22:21)
[2017-10-11 22:25] LABS: ALBUMIN 3.7 g/dl (3.4-5.0); ALK PHOS 88 U/L (45-117); ANION GAP 6 (8-16); BILIRUBIN,TOTAL 0.4 mg/dL (0.2-1.0); BLOOD UREA NITROGEN 9 mg/dL (7-18); CALCIUM 9.4 mg/dL (8.5-10.1); CHLORIDE 100 mmol/L (98-107); CO2 30 mmol/L (21-32); CREATININE 0.7 mg/dL (0.7-1.3); GLUCOSE,RANDOM 90 mg/dL (74-106); POTASSIUM 4.2 mmol/L (3.5-5.1); SGOT/AST 10 U/L (15-37); SGPT/ALT 24 U/L (12-78); SODIUM 136 mmol/L (136-145); TOT PROT 8.8 g/dl (6.4-8.2)
[2017-10-11 22:30] LABS: URINE APPEARANCE TURBID; URINE BILIRUBIN NEGATIVE (NEGATIVE); URINE BLOOD NEGATIVE (NEGATIVE); URINE COLOR YELLOW; URINE GLUCOSE (UA) NEGATIVE (NEGATIVE); URINE KETONE NEGATIVE (NEGATIVE); URINE LEUK ESTERASE NEGATIVE (NEGATIVE); URINE NITRITE NEGATIVE (NEGATIVE); URINE PROTEIN NEGATIVE (NEGATIVE); URINE UROBILINOGEN 4.0 E.U/dl mg/dL (0.2-1.0)
[2017-10-12] MEDS: diazePAM 5 MG TABLET PO SCH ×3 (06:22→22:12)
--- NOTE | 2017-10-12 09:49 | EKG ---
Test Reason : Blood Pressure : / mmHG Vent. Rate : 070 BPM Atrial Rate : 070 BPM P-R Int : 162 ms QRS Dur : 086 ms QT Int : 390 ms P-R-T Axes : 038 058 026 degrees QTc Int : 421 ms NORMAL SINUS RHYTHM WITH SINUS ARRHYTHMIA MINIMAL VOLTAGE CRITERIA FOR LVH, MAY BE NORMAL VARIANT BORDERLINE ECG WHEN COMPARED WITH ECG OF 21-SEP-2017 19:06, NO SIGNIFICANT CHANGE WAS FOUND Confirmed by MD Jose, Wood ([id number]) on 10/12/2017 9:48:58 AM Referred By: Confirmed By:Wood Garcia MD
[2017-10-12] MEDS ORDERED: METHADONE HCL 10 MG TABLET (FOR DETOX USE ONLY) PO SCH (10:00)
[2017-10-12] MEDS: RANITIDINE HCL 150 MG TABLET (FP) PO SCH ×2 (10:22→22:12)
[2017-10-12] MEDS: diazePAM 5 MG TABLET PO PRN ×2 (10:22→17:31)
[2017-10-12] MEDS: PRENATAL VITAMINS W/ FOLIC ACID TABLET (FP) PO SCH (10:24)
[2017-10-12] MEDS: NICOTINE 14 MG/24 HOURS TOPICAL PATCH TD SCH (10:24)
--- NOTE | 2017-10-12 12:08 | CONSULT ---
[facility] Psychiatric Consult - Data Date of interview: 10/12/17 Admission source: [facility] Identifying data: This is one of multiple admissions to [facility] [place] for this 32 y/ o male seeking detox treatment on for xanax,alcohol,cannabis, cocaine and heroin dependence.Patient,in this encounter,introduces self as single,father of one (had claimed four in another interview with credit underwriter), currently homeless,unemployed and supported on Public Assistance. Substance Abuse History: Discussed with the patient.Mr Rabai wakefieldledgenaa continuous use of multiple substances as detailed in current [facility] report : Smoking history: Current every day smoker. Have you smoked in the past 12 months: Yes. Aproximately how many cigarettes per day: 10. Cigars Per Day: 0. Hx Chewing Tobacco Use: No. Initiated information on smoking cessation: Yes. 'Breaking Loose' booklet given: 10/11/17. - Substance & Tx. History. Hx Alcohol Use: Yes (MELODY/TIQUILLA;BEER). Hx Substance Use: Yes (HEROIN/XANAX /KLONOPIN). Substance Use Type: Alcohol, Cocaine, Heroin, Tranquilizers. Hx Substance Use Treatment: Yes (LAST TX AT [facility] DETOX). - Substances Abused. * * Alcohol. Route: Oral. Frequency: Daily. Amount used: henessey(1 pint). Age of first use: 13. Date of Last Use: 10/10/17. Heroin. Route: Injection. Frequency: Daily. Amount used: 15 bags. Age of first use: 21. Date of Last Use: 10/11/17. Benzodiazepine (Klonopin). Route: Oral. Frequency: Daily. Amount used: 3-4 pills. Age of first use: 24. Date of Last Use: 10/09/17. Cocaine. Route: Injection. Frequency: Daily. Amount used: 1 gram. Age of first use: 16. Date of Last Use: 10/11/17. Marijuana/ Hashish. Route: Smoking. Frequency: Daily. Amount used: $5. Age of first use : 14. Date of Last Use: 10/11/17 Medical History: Hepatitis C and GERD. Psychiatric History: Patient denies history of psychiatric hospitalizations.He reports sporadic treatment,in the past,with prozac and clonazepam.Endorses the diagnoses of Panic Disorder,Anxiety Disorder and MDD.No-adherent to medications and OPD care for " more than a year " in spite of intermittent admissions to detox/rehabilitation units (including [facility]).Never complied with aftercare following discharges.Mr Camarillo denies history of suicide attempts. Physical/Sexual Abuse/Trauma History: Patient denies. Additional Comment: Urine Drug Screen Results: THC-Marijuana, AJ-Cocaine, OPI- Opiates, BZO-Benzodiazepines.Noted. Mental Status Exam - Mental Status Exam Alert and Oriented to: Time, Place, Person Cognitive Function: Good Patient Appearance: Unkempt, Disheveled Mood: Nervous, Withdrawn Affect: Mood Congruent Patient Behavior: Fatigued, Cooperative Speech Pattern: Clear, Appropriate Voice Loudness: Normal Thought Process: Goal Oriented Thought Disorder: Not Present Hallucinations: Denies Suicidal Ideation: Denies Homicidal Ideation: Denies Insight/Judgement: Poor Sleep: Poorly, Difficulty falling asleep Appetite: Good Muscle strength/Tone: Normal Gait/Station: Normal Psychiatric Findings - Problem List ([place] 1, 2,3) (1) Opioid dependence with withdrawal Current Visit: Yes Status: Acute (2) Alcohol dependence with uncomplicated withdrawal Current Visit: Yes Status: Acute (3) Cannabis dependence, uncomplicated Current Visit: Yes Status: Acute (4) Cocaine dependence, uncomplicated Current Visit: Yes Status: Acute (5) Sedative, hypnotic or anxiolytic dependence with withdrawal, uncomplicated Current Visit: Yes Status: Acute (6) Nicotine dependence Current Visit: Yes Status: Acute Qualifiers: Nicotine product type: cigarettes Substance use status: in withdrawal Qualified Code(s): F17.213 - Nicotine dependence, cigarettes, with withdrawal (7) Substance induced mood disorder Current Visit: Yes Status: Acute (8) Insomnia Current Visit: Yes Status: Acute - Initial Treatment Plan Initial Treatment Plan: Previous records are revisited.Psychoeducation and support provided in session.Detoxification in progress.Sleep hygiene discussed.Ambien 10 mg po hs prn.Side effects/benefits discussed with patient.Agrees with this careplan.Observation.
--- NOTE | 2017-10-12 12:19 | PN ---
S CIWA - CIWA Score Nausea/Vomitin Muscle Tremors: 3 Anxiety: 4-Mod. Anxious/Guarded Agitation: 2 Paroxysmal Sweats: 3 Orientation: 0-Oriented Tacttile Disturbances: 2-Mild Itch/Numbness/Burn Auditory Disturbances: 0-None Visual Disturbances: 0-None Headache: 3-Moderate CIWA-Ar Total Score: 20 BHS COWS - Scale Resting Pulse: 0= [place] 80 or Below Sweatin= Chills/Flushing Restless Observation: 1= Difficult to Sit Still Pupil Size: 0= Normal to Room Light Bone or Joint Aches: 2= Severe Diffuse Aches Runny Nose/ Eye Tearin= None GI Upset > 30mins: 2= Nausea/Diarrhea Tremor Observation of Outstretched Hands: 2= Slight Tremor Visible Yawning Observation: 1= 1-2x During Session Anxiety or Irritability: 2=Irritable/Anxious Goose Flesh Skin: 3=Piloerection COWS Score: 14 BHS Progress Note (SOAP) Subjective: Constipation, Nausea, Tremors, Interrupted Sleep, Chills, Sweating, H/A, Body Aches, Fatigue, Interrupted Sleep. Objective: PT. A & O X 3, OBSERVED AMBULATING ON UNIT. NO ACUTE DISTRESS. 10/12/17 12:23 Vital Signs Temperature 97.2 F L 10/12/17 09:07 Pulse Rate 73 10/12/17 09:07 Respiratory Rate 18 10/12/17 09:07 Blood Pressure 111/77 10/12/17 09:07 O2 Sat by Pulse Oximetry (%) Laboratory Tests 10/11/17 10/11/17 10/11/17 15:00 15:00 15:00 WBC 3.6 L RBC 4.86 Hgb 12.5 Hct 38.5 MCV 79.3 L MCH 25.8 MCHC 32.5 RDW 15.6 Plt Count 382 MPV 9.2 Sodium 136 Potassium 4.2 Chloride 100 Carbon Dioxide 30 Anion Gap 6 L BUN 9 Creatinine 0.7 Creat Clearance w eGFR > 60 Random Glucose 90 Calcium 9.4 Total Bilirubin 0.4 D AST 10 L D ALT 24 Alkaline Phosphatase 88 Total Protein 8.8 H Albumin 3.7 Urine Color Urine Appearance Urine pH Ur Specific [place] Urine Protein Urine Glucose (UA) Urine Ketones Urine Blood Urine Nitrite Urine Bilirubin Urine Urobilinogen Ur Leukocyte Esterase RPR Titer Nonreactive 10/11/17 15:45 WBC RBC Hgb Hct MCV MCH MCHC RDW Plt Count MPV Sodium Potassium Chloride Carbon Dioxide Anion Gap BUN Creatinine Creat Clearance w eGFR Random Glucose Calcium Total Bilirubin AST ALT Alkaline Phosphatase Total Protein Albumin Urine Color Yellow Urine Appearance Turbid Urine pH 6.0 Ur Specific [place] 1.020 Urine Protein Negative Urine Glucose (UA) Negative Urine Ketones Negative Urine Blood Negative Urine Nitrite Negative Urine Bilirubin Negative Urine Urobilinogen 4.0 e.u/dl Ur Leukocyte Esterase Negative RPR Titer LABS NOTED. Assessment: 10/12/17 12:24 WITHDRAWAL SYMPTOMS. Plan: CONTINUE DETOX. PRN ZOFRAN SL FOR NAUSEA / VOMITING. PRN MOM FOR CONSTIPATION. INCREASE DAILY PO FLUID INTAKE.
--- NOTE | 2017-10-12 13:27 | EKG ---
Test Reason : Blood Pressure : / mmHG Vent. Rate : 063 BPM Atrial Rate : 063 BPM P-R Int : 164 ms QRS Dur : 094 ms QT Int : 424 ms P-R-T Axes : 045 053 043 degrees QTc Int : 433 ms NORMAL SINUS RHYTHM WITH SINUS ARRHYTHMIA VOLTAGE CRITERIA FOR LEFT VENTRICULAR HYPERTROPHY CANNOT RULE OUT SEPTAL INFARCT , AGE UNDETERMINED ABNORMAL ECG WHEN COMPARED WITH ECG OF 11-OCT-2017 16:49, MINIMAL CRITERIA FOR SEPTAL INFARCT ARE NOW PRESENT Confirmed by CLAIR EVERETT MD ([id number]) on 10/12/2017 1:27:36 PM Referred By: Confirmed By:CLAIR EVERETT MD
[2017-10-12] MEDS: MAG HYDROX/AL HYDROX/SIMETH 30 ML UNIT-DOSE CUP PO PRN (19:09)
[2017-10-12] MEDS: ZOLPIDEM TARTRATE 10 MG TABLET (PARK CARE ONLY) PO PRN (22:12)
[2017-10-12] MEDS: THIAMINE HCL 100 MG TABLET (FP) PO SCH (22:12)
[2017-10-13] MEDS: MAG HYDROX/AL HYDROX/SIMETH 30 ML UNIT-DOSE CUP PO PRN (03:15)
[2017-10-13] MEDS: diazePAM 5 MG TABLET PO PRN ×4 (03:15→17:35)
[2017-10-13] MEDS: ONDANSETRON *ODT* 4 MG TABLET SL PRN ×2 (09:45→17:36)
[2017-10-13] MEDS: RANITIDINE HCL 150 MG TABLET (FP) PO SCH ×2 (10:07→22:13)
[2017-10-13] MEDS: diazePAM 5 MG TABLET PO SCH ×2 (10:07→22:13)
[2017-10-13] MEDS: METHADONE HCL 5 MG TABLET (FOR DETOX USE ONLY) PO SCH (10:07)
[2017-10-13] MEDS: PRENATAL VITAMINS W/ FOLIC ACID TABLET (FP) PO SCH (10:07)
[2017-10-13] MEDS: NICOTINE 14 MG/24 HOURS TOPICAL PATCH TD SCH (10:09)
--- NOTE | 2017-10-13 12:26 | PN ---
[facility] CIWA - CIWA Score Nausea/Vomitin-Int. Nausea w/Dry Heave Muscle Tremors: 4-Moderate,w/Arms Extend Anxiety: 3 Agitation: 2 Paroxysmal Sweats: 3 Orientation: 0-Oriented Tacttile Disturbances: 2-Mild Itch/Numbness/Burn Auditory Disturbances: 1-Very Mild Visual Disturbances: 0-None Headache: 0-None Present CIWA-Ar Total Score: 19 BHS COWS - Scale Resting Pulse: 0= [place] 80 or Below Sweatin= Chills/Flushing Restless Observation: 1= Difficult to Sit Still Pupil Size: 0= Normal to Room Light Bone or Joint Aches: 2= Severe Diffuse Aches Runny Nose/ Eye Tearin= None GI Upset > 30mins: 1= Stomach Cramp Tremor Observation of Outstretched Hands: 2= Slight Tremor Visible Yawning Observation: 0= None Anxiety or Irritability: 4=Extreme Anxiety Goose Flesh Skin: 3=Piloerection COWS Score: 14 S Progress Note (SOAP) Subjective: Body Aches, Stomach Cramping, Tremors, Interrupted Sleep. Objective: PT. A & O X 3, OBSERVED AMBULATING ON UNIT. NO ACUTE DISTRESS. 10/13/17 12:25 Vital Signs Temperature 99.2 F 10/13/17 08:48 Pulse Rate 90 10/13/17 08:48 Respiratory Rate 20 10/13/17 08:48 Blood Pressure 123/84 10/13/17 08:48 O2 Sat by Pulse Oximetry (%) Laboratory Tests 10/11/17 10/11/17 10/11/17 15:00 15:00 15:00 WBC 3.6 L RBC 4.86 Hgb 12.5 Hct 38.5 MCV 79.3 L MCH 25.8 MCHC 32.5 RDW 15.6 Plt Count 382 MPV 9.2 Sodium 136 Potassium 4.2 Chloride 100 Carbon Dioxide 30 Anion Gap 6 L BUN 9 Creatinine 0.7 Creat Clearance w eGFR > 60 Random Glucose 90 Calcium 9.4 Total Bilirubin 0.4 D AST 10 L D ALT 24 Alkaline Phosphatase 88 Total Protein 8.8 H Albumin 3.7 Urine Color Urine Appearance Urine pH Ur Specific [place] Urine Protein Urine Glucose (UA) Urine Ketones Urine Blood Urine Nitrite Urine Bilirubin Urine Urobilinogen Ur Leukocyte Esterase RPR Titer Nonreactive 10/11/17 15:45 WBC RBC Hgb Hct MCV MCH MCHC RDW Plt Count MPV Sodium Potassium Chloride Carbon Dioxide Anion Gap BUN Creatinine Creat Clearance w eGFR Random Glucose Calcium Total Bilirubin AST ALT Alkaline Phosphatase Total Protein Albumin Urine Color Yellow Urine Appearance Turbid Urine pH 6.0 Ur Specific [place] 1.020 Urine Protein Negative Urine Glucose (UA) Negative Urine Ketones Negative Urine Blood Negative Urine Nitrite Negative Urine Bilirubin Negative Urine Urobilinogen 4.0 e.u/dl Ur Leukocyte Esterase Negative RPR Titer LABS NOTED. Assessment: 10/13/17 12:25 WITHDRAWAL SYMPTOMS. Plan: CONTINUE DETOX.
--- NOTE | 2017-10-13 15:42 | PN ---
Psychiatric Progress Note Vital Signs: Vital Signs Period Temp Pulse Resp BP Sys/Garcias Pulse Ox Last 24 Hr 97.5 F-99.2 F 61-90 16-20 109-123/63-84 Date of Session: 10/13/17 Chief Complaint:: "I have alot on my mind. I have anxiety." HPI: Pt. is a 32 year old male with a history of xanax, alcohol, cannabis, cocaine and heroin dependence. ROS: Unremarkable. Current Medications: Active Medications Generic Name Dose Route Start Last Admin Trade Name Freq PRN Reason Stop Dose Admin Acetaminophen 650 mg 10/11/17 14:11 Tylenol - PO Q4H PRN FEVER OR PAIN Al Hydroxide/Mg Hydroxide 30 ml 10/11/17 14:11 10/13/17 03:15 Mylanta Oral Suspension - PO 30 ml Q6H PRN Administration DYSPEPSIA Diazepam 5 mg 10/13/17 10:00 10/13/17 10:07 Valium - PO 10/14/17 22:01 5 mg BID ABBY Administration Diazepam 5 mg 10/15/17 10:00 Valium - PO 10/15/17 10:01 DAILY ABBY Diazepam 10 mg 10/11/17 14:11 10/13/17 13:14 Valium - PO 10/14/17 14:11 10 mg Q4H PRN Administration WITHDRAWAL(CONT SUBST) Eucalyptus/Menthol/Phenol/Sorbitol 1 each 10/11/17 14:11 Cepastat Lozenge - MM Q4H PRN SORE THROAT Guaifenesin 10 ml 10/11/17 14:11 Robitussin Dm - PO Q6H PRN COUGH Ibuprofen 400 mg 10/11/17 14:11 Motrin - PO Q6H PRN SEVERE PAIN Loperamide HCl 4 mg 10/11/17 14:11 Imodium - PO Q6H PRN DIARRHEA Magnesium Citrate 300 ml 10/11/17 14:11 Citroma - PO Q48H PRN CONSTIPATION Magnesium Hydroxide 30 ml 10/11/17 14:11 Milk Of Magnesia - PO DAILY PRN CONSTIPATION Methadone HCl 10 mg 10/15/17 10:00 Dolophine - PO 10/15/17 10:01 DAILY ABBY Methadone HCl 15 mg 10/13/17 10:00 10/13/17 10:07 Dolophine - PO 10/14/17 10:01 15 mg DAILY ABBY Administration Methadone HCl 5 mg 10/16/17 06:00 Dolophine - PO 10/16/17 06:01 DAILY@0600 ABBY Nicotine 14 mg 10/11/17 15:15 10/13/17 10:09 Nicoderm Patch - TD 14 mg DAILY ABBY Administration Nicotine Polacrilex 2 mg 10/11/17 14:11 Nicorette Gum - BUC Q2H PRN NICOTINE REPLACEMENT RX Ondansetron HCl 4 mg 10/12/17 10:18 10/13/17 09:45 Zofran Odt - SL 4 mg Q8H PRN Administration NAUSEA AND/OR VOMITING Multivit/Folic Acid/Iron 1 tab 10/12/17 10:00 10/13/17 10:07 Vitamins (Sjr) - PO 1 tab DAILY ABBY Administration Pseudoephedrine/Triprolidine 1 combo 10/11/17 14:11 Actifed - PO TID PRN NASAL CONGESTION Ranitidine HCl 150 mg 10/11/17 22:00 10/13/17 10:07 Zantac - PO 150 mg BID ABBY Administration Thiamine HCl 100 mg 10/11/17 22:00 10/12/17 22:12 Vitamin B1 - PO 100 mg HS ABBY Administration Zolpidem Tartrate 10 mg 10/12/17 22:00 10/12/17 22:12 Ambien - PO 10/15/17 21:59 10 mg HS PRN Administration INSOMNIA Medication(s) Change(s): No. Current Side Effect: No Lab tests ordered: No Lab tests reviewed: Yes Provider note:: Analytical Strategist approached patient concerning request for psychiatric reconsultation. Patient requesting to speak to resume writer concerning his anxiety and rehab options. Pt. reports having anxiety problems for many years and was interested in being prescribed benzodiazepine while on the unit and following discharge. Pt. educated on his current prescribed medications and made aware that valium is currently available to him. Pt. also made aware that a prescription of benzodiazepine is not prescribed while a patient is in detox. Psychoeducation provided. Pt. also given alternative options for anxiety including, seroquel and vistaril but patient refused. Pt. also concerned about which rehab he will be accepted too after completing the detox program. Pt. given positive reassurance and able to accept positive feedback. Will continue to monitor. Total face to face time:: 25 Mental Status Exam - Mental Status Exam Alert and Oriented to: Time, Place, Person Cognitive Function: Good Patient Appearance: Unkempt Mood: Anxious Affect: Mood Congruent Patient Behavior: Cooperative Speech Pattern: Clear Voice Loudness: Normal Thought Process: Goal Oriented Hallucinations: Denies Suicidal Ideation: Denies Homicidal Ideation: Denies Insight/Judgement: Poor Sleep: Fair Appetite: Fair Muscle strength/Tone: Normal Gait/Station: Normal Psychiatric Treatment Plan - Problem List (1) Alcohol dependence with uncomplicated withdrawal Current Visit: Yes (2) Cannabis dependence, uncomplicated Current Visit: Yes (3) Cocaine dependence, uncomplicated Current Visit: Yes (4) Insomnia Current Visit: Yes (5) Nicotine dependence Current Visit: Yes Qualifiers: Nicotine product type: cigarettes Substance use status: in withdrawal Qualified Code(s): F17.213 - Nicotine dependence, cigarettes, with withdrawal (6) Opioid dependence with withdrawal Current Visit: Yes (7) Sedative, hypnotic or anxiolytic dependence with withdrawal, uncomplicated Current Visit: Yes (8) Uncomplicated sedative, hypnotic or anxiolytic withdrawal Current Visit: Yes (9) Substance induced mood disorder Current Visit: No (10) Anxiety and depression Current Visit: No Comment: Self reports.
[2017-10-13] MEDS: THIAMINE HCL 100 MG TABLET (FP) PO SCH (22:13)
[2017-10-13] MEDS: ZOLPIDEM TARTRATE 10 MG TABLET (PARK CARE ONLY) PO PRN (22:13)
[2017-10-14] MEDS: diazePAM 5 MG TABLET PO PRN ×2 (04:23→08:40)
[2017-10-14] MEDS: ONDANSETRON *ODT* 4 MG TABLET SL PRN (08:40)
[2017-10-14 09:19] VITALS: BP 115/72; PULSE 79; TEMP 97.9
[2017-10-14] MEDS: RANITIDINE HCL 150 MG TABLET (FP) PO SCH (09:55)
[2017-10-14] MEDS: diazePAM 5 MG TABLET PO SCH (09:55)
[2017-10-14] MEDS: METHADONE HCL 5 MG TABLET (FOR DETOX USE ONLY) PO SCH (09:55)
[2017-10-14] MEDS: PRENATAL VITAMINS W/ FOLIC ACID TABLET (FP) PO SCH (09:55)
[2017-10-14] MEDS: NICOTINE 14 MG/24 HOURS TOPICAL PATCH TD SCH (09:55)
[2017-10-14] MEDS ORDERED: CYCLOBENZAPRINE HCL 5 MG TABLET PO ONE (10:00)
--- NOTE | 2017-10-14 10:58 | PN ---
S Progress Note (SOAP) Subjective: ANXIETY,IRRITABILITY, MUSCLE CRAMPS,DIARRHEA, FATIGUE. Objective: 10/14/17 10:58 Vital Signs Temperature 97.9 F 10/14/17 09:19 Pulse Rate 79 10/14/17 09:19 Respiratory Rate 18 10/14/17 09:19 Blood Pressure 115/72 10/14/17 09:19 O2 Sat by Pulse Oximetry (%) Laboratory Last Values WBC 3.6 K/mm3 (4.0-10.0) L 10/11/17 15:00 RBC 4.86 M/mm3 (4.00-5.60) 10/11/17 15:00 Hgb 12.5 GM/dL (11.7-16.9) 10/11/17 15:00 Hct 38.5 % (35.4-49) 10/11/17 15:00 MCV 79.3 fl (80-96) L 10/11/17 15:00 MCH 25.8 pg (25.7-33.7) 10/11/17 15:00 MCHC 32.5 g/dl (32.0-35.9) 10/11/17 15:00 RDW 15.6 % (11.9-15.9) 10/11/17 15:00 Plt Count 382 K/MM3 (134-434) 10/11/17 15:00 MPV 9.2 fl (7.5-11.1) 10/11/17 15:00 Sodium 136 mmol/L (136-145) 10/11/17 15:00 Potassium 4.2 mmol/L (3.5-5.1) 10/11/17 15:00 Chloride 100 mmol/L (98-107) 10/11/17 15:00 Carbon Dioxide 30 mmol/L (21-32) 10/11/17 15:00 Anion Gap 6 (8-16) L 10/11/17 15:00 BUN 9 mg/dL (7-18) 10/11/17 15:00 Creatinine 0.7 mg/dL (0.7-1.3) 10/11/17 15:00 Creat Clearance w eGFR > 60 (>60) 10/11/17 15:00 Random Glucose 90 mg/dL (74-106) 10/11/17 15:00 Calcium 9.4 mg/dL (8.5-10.1) 10/11/17 15:00 Total Bilirubin 0.4 mg/dL (0.2-1.0) D 10/11/17 15:00 AST 10 U/L (15-37) L D 10/11/17 15:00 ALT 24 U/L (12-78) 10/11/17 15:00 Alkaline Phosphatase 88 U/L (45-117) 10/11/17 15:00 Total Protein 8.8 g/dl (6.4-8.2) H 10/11/17 15:00 Albumin 3.7 g/dl (3.4-5.0) 10/11/17 15:00 Urine Color Yellow 10/11/17 15:45 Urine Appearance Turbid 10/11/17 15:45 Urine pH 6.0 (5.0-8.0) 10/11/17 15:45 Ur Specific [place] 1.020 (1.001-1.035) 10/11/17 15:45 Urine Protein Negative (NEGATIVE) 10/11/17 15:45 Urine Glucose (UA) Negative (NEGATIVE) 10/11/17 15:45 Urine Ketones Negative (NEGATIVE) 10/11/17 15:45 Urine Blood Negative (NEGATIVE) 10/11/17 15:45 Urine Nitrite Negative (NEGATIVE) 10/11/17 15:45 Urine Bilirubin Negative (NEGATIVE) 10/11/17 15:45 Urine Urobilinogen 4.0 e.u/dl mg/dL (0.2-1.0) 10/11/17 15:45 Ur Leukocyte Esterase Negative (NEGATIVE) 10/11/17 15:45 RPR Titer Nonreactive (NONREACTIVE) 10/11/17 15:00 Assessment: 10/14/17 10:58 WITHDRAWAL SX Plan: CONTINUE DETOX
--- NOTE | 2017-10-14 12:25 | DS ---
[facility] Detox Discharge Summary Admission Date: 10/11/17 Discharge Date: 10/14/17 - History Present History: Alcohol Dependence, Cannabis Dependence, Cocaine Dependence, Opioid Dependence, Sedative Dependence Additional Comments: PT DECLINED TO COMPLETE DETOX STATING PERSONAL REASON OF FAMILY MATTERS. Pertinent Past History: GERD HEP C WEIGHT LOSS - Physical Exam Results Vital Signs: Vital Signs Temperature 97.9 F 10/14/17 09:19 Pulse Rate 79 10/14/17 09:19 Respiratory Rate 18 10/14/17 09:19 Blood Pressure 115/72 10/14/17 09:19 O2 Sat by Pulse Oximetry (%) Pertinent Admission Physical Exam Findings: WITHDRAWAL SX Laboratory Last Values WBC 3.6 K/mm3 (4.0-10.0) L 10/11/17 15:00 RBC 4.86 M/mm3 (4.00-5.60) 10/11/17 15:00 Hgb 12.5 GM/dL (11.7-16.9) 10/11/17 15:00 Hct 38.5 % (35.4-49) 10/11/17 15:00 MCV 79.3 fl (80-96) L 10/11/17 15:00 MCH 25.8 pg (25.7-33.7) 10/11/17 15:00 MCHC 32.5 g/dl (32.0-35.9) 10/11/17 15:00 RDW 15.6 % (11.9-15.9) 10/11/17 15:00 Plt Count 382 K/MM3 (134-434) 10/11/17 15:00 MPV 9.2 fl (7.5-11.1) 10/11/17 15:00 Sodium 136 mmol/L (136-145) 10/11/17 15:00 Potassium 4.2 mmol/L (3.5-5.1) 10/11/17 15:00 Chloride 100 mmol/L (98-107) 10/11/17 15:00 Carbon Dioxide 30 mmol/L (21-32) 10/11/17 15:00 Anion Gap 6 (8-16) L 10/11/17 15:00 BUN 9 mg/dL (7-18) 10/11/17 15:00 Creatinine 0.7 mg/dL (0.7-1.3) 10/11/17 15:00 Creat Clearance w eGFR > 60 (>60) 10/11/17 15:00 Random Glucose 90 mg/dL (74-106) 10/11/17 15:00 Calcium 9.4 mg/dL (8.5-10.1) 10/11/17 15:00 Total Bilirubin 0.4 mg/dL (0.2-1.0) D 10/11/17 15:00 AST 10 U/L (15-37) L D 10/11/17 15:00 ALT 24 U/L (12-78) 10/11/17 15:00 Alkaline Phosphatase 88 U/L (45-117) 10/11/17 15:00 Total Protein 8.8 g/dl (6.4-8.2) H 10/11/17 15:00 Albumin 3.7 g/dl (3.4-5.0) 10/11/17 15:00 Urine Color Yellow 10/11/17 15:45 Urine Appearance Turbid 10/11/17 15:45 Urine pH 6.0 (5.0-8.0) 10/11/17 15:45 Ur Specific [place] 1.020 (1.001-1.035) 10/11/17 15:45 Urine Protein Negative (NEGATIVE) 10/11/17 15:45 Urine Glucose (UA) Negative (NEGATIVE) 10/11/17 15:45 Urine Ketones Negative (NEGATIVE) 10/11/17 15:45 Urine Blood Negative (NEGATIVE) 10/11/17 15:45 Urine Nitrite Negative (NEGATIVE) 10/11/17 15:45 Urine Bilirubin Negative (NEGATIVE) 10/11/17 15:45 Urine Urobilinogen 4.0 e.u/dl mg/dL (0.2-1.0) 10/11/17 15:45 Ur Leukocyte Esterase Negative (NEGATIVE) 10/11/17 15:45 RPR Titer Nonreactive (NONREACTIVE) 10/11/17 15:00 - Treatment Hospital Course: Discharged Condition Good - Medication Discharge Medications: Ambulatory Orders Ranitidine HCl [Zantac] 150 mg PO BID 10/11/17 - Diagnosis (1) Alcohol dependence with uncomplicated withdrawal Current Visit: Yes Status: Acute (2) Cocaine dependence, uncomplicated Current Visit: Yes Status: Acute (3) GERD (gastroesophageal reflux disease) Current Visit: Yes Status: Chronic Qualifiers: Esophagitis presence: esophagitis presence not specified Qualified Code(s) : K21.9 - Gastro-esophageal reflux disease without esophagitis (4) Hepatitis C Current Visit: Yes Status: Chronic Qualifiers: Viral hepatitis chronicity: carrier Qualified Code(s): B18.2 - Chronic viral hepatitis C (5) Nicotine dependence Current Visit: Yes Status: Acute Qualifiers: Nicotine product type: cigarettes Substance use status: in withdrawal Qualified Code(s): F17.213 - Nicotine dependence, cigarettes, with withdrawal (6) Opioid dependence with withdrawal Current Visit: Yes Status: Acute (7) Sedative, hypnotic or anxiolytic dependence with withdrawal, uncomplicated Current Visit: Yes Status: Acute (8) Cannabis dependence, uncomplicated Current Visit: Yes Status: Acute - AMA Did Patient Leave Against Medical Advice: Yes (AMA)
[2017-10-14] MEDS ORDERED: CYCLOBENZAPRINE HCL 5 MG TABLET PO SCH (14:00)
[2017-10-15] MEDS ORDERED: diazePAM 5 MG TABLET PO SCH (10:00)
[2017-10-15] MEDS ORDERED: METHADONE HCL 10 MG TABLET (FOR DETOX USE ONLY) PO SCH (10:00)
[2017-10-16] MEDS ORDERED: METHADONE HCL 5 MG TABLET (FOR DETOX USE ONLY) PO SCH (06:00)
== END 2017-10-14 12:16 | disposition left against medical advice (07) | DRG 770 ==
LOC: YASAS 11:06 → Y3N 15:06
PROVIDERS: ADMIT Internal Medicine; ATTEND Internal Medicine
PROC: HZ2ZZZZ Detoxification Services for Substance Abuse Treatment (ICD-10-PCS; principal; 2017-10-11)
DX: F11.23 Opioid dependence with withdrawal (principal); F13.230 Sedative, hypnotic or anxiolytic dependence with withdrawal, uncomplicated; F10.230 Alcohol dependence with withdrawal, uncomplicated; F14.20 Cocaine dependence, uncomplicated; F12.20 Cannabis dependence, uncomplicated; F17.213 Nicotine dependence, cigarettes, with withdrawal; B18.2 Chronic viral hepatitis C; F19.24 Other psychoactive substance dependence with psychoactive substance-induced mood disorder; G47.00 Insomnia, unspecified; K21.9 Gastro-esophageal reflux disease without esophagitis
CPT/HCPCS: 36415; 80053; 81003; 85027; 86593; 93005; 93010